=== PATIENT | female | born 1955 | race Caucasian/White ===

== ENCOUNTER 2021-02-06 09:21 | Outpatient (REF) | payer OTHER, SELFPAY ==
[2021-02-06 10:31] LABS: MANUAL DIFF FLAG NO
[2021-02-06 11:03] LABS: Basophils Percent Auto 0.8 % (0-2); Eosinophils Absolute Auto 0.1 X10*3/uL (0.0-0.4); Eosinophils Percent Auto 1.3 % (0-4); Hematocrit 37.6 % (37-47); Hemoglobin 12.4 g/dl (12.0-16.0); Imm Gran Abs Auto 0.01 X10*3/uL (0.00-0.03); Imm Gran Pct Auto 0.2 % (0.0-0.4); Lymphocytes Absolute Auto 1.7 X10*3/uL (1.2-4.9); Lymphocytes Percent Auto 32.8 % (20-40); Mean Corpuscular Hemoglobin 30.2 pg (27.0-33.0); Mean Corpuscular Volume 91.7 fL (80-98); Monocytes Absolute Auto 0.6 X10*3/uL (0.1-1.2); Monocytes Percent Auto 11.3 % (2-11); Neutrophils Absolute Auto 2.8 X10*3/uL (2.0-8.3); Neutrophils Percent Auto 53.6 % (45-73); Platelet Count 200 X10*3/uL (160-400); Red Cell Distribution Width 12.3 % (11.0-16.0); White Blood Count 5.2 X10*3/uL (4.8-10.8)
[2021-02-06 12:24] LABS: Free T4 (Free Thyroxine) 0.93 ng/dL (0.71-1.85); Thyroid Stimulating Hormone 0.97 uIU/mL (0.32-4.0); Vitamin D 25-OH Total 39.5 ng/mL (>30)
[2021-02-06 12:33] LABS: Alanine Aminotransferase 11 U/L (0-31); Albumin Level 4.1 g/dL (3.5-5.0); Alkaline Phosphatase 56 U/L (39-117); Anion Gap 12 (12-20); Aspartate Amino Transferase 20 U/L (5-31); Bilirubin Total 0.7 mg/dL (0.0-1.0); Blood Urea Nitrogen 27 mg/dL (9-16); Calcium 9.3 mg/dL (8.4-10.2); Carbon Dioxide 28 mmol/L (22-29); Chloride 105 mmol/L (96-108); Cholesterol 213 mg/dL; Estimated Glomerular Filt Rate 55; Glucose Random 86 mg/dL (60-115); Sodium 141 mmol/L (135-145); Total Protein 6.8 g/dL (6.5-8.0)
== END 2021-02-06 09:22 | disposition home or self-care (01) ==
LOC: HO.10HDL 09:21
PROVIDERS: Visit Provider Internal Medicine
DX: R00.2 Palpitations (principal); I10 Essential (primary) hypertension; E55.9 Vitamin D deficiency, unspecified; R55 Syncope and collapse
CPT/HCPCS: 36415; 80053; 82306; 82465; 84439; 84443; 85025

== ENCOUNTER → 2021-02-21 11:20 | Outpatient (REF) | payer OTHER, SELFPAY ==
--- NOTE | 2021-02-21 11:30 | CA_ITS ---
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 Normal LV systolic and diastolic function 2. Normal cardiac valvular Doppler 3. Normal RV systolic pressure 4. No pericardial effusion Findings Left Ventricle Normal left ventricular size, thickness, and systolic function. The visually estimated ejection fraction is between 60-65%. Diastolic function is normal for age. Right Ventricle Normal right ventricular cavity size and systolic function. Atria Both atria are normal in size. There is an interatrial septal aneurysm seen bowing to the right. There is no evidence of interatrial shunt. Aortic Valve The aortic valve structure and function is likely normal. There is no aortic valve stenosis. There is no aortic valve regurgitation. Mitral Valve Normal mitral valve structure and function. There is trace mitral valve regurgitation. There is no mitral valve stenosis. Pulmonic Valve The pulmonic valve was not well visualized. Tricuspid Valve Likely normal tricuspid valve structure and function. There is trace tricuspid valve regurgitation. The right ventricular systolic pressure is normal. The right ventricular systolic pressure is 18 mmHg. Normal right atrial pressure. There is no evidence of pulmonary hypertension. Great Vessels All visible segments of the aorta are normal in size. The pulmonary artery was not well visualized. Venous The inferior vena cava is normal in size and collapses greater than 50% with inspiration. Pericardium/Pleural There is no evidence of pericardial effusion. Prior Study Comparison No prior study available for comparison. Measurements 2D Linear Measurements IVSd: 0.82 0.6-0.9/0.6-1.0 cm LVIDd: 4.31 3.9-5.3/4.2-5.9 cm LVIDd Index: 2.39 2.4-3.2/2.2-3.1 cm/m2 LVIDs: 2.96 2.0-3.6 cm LVPWd: 0.96 0.7-1.1 cm Ao Root: 3.30 2.1-3.5 cm LA Diam: 2.70 2.7-3.8/3.0-4.0 cm LAIDs Index: 1.50 1.5-2.3 cm/m2 LV Mass: 151.64 67-162/88-224 g LV Mass Index: 84.24 43-95/49-115 g/m2 LVOT Diam: 2.10 3.0+(-)1.3 cm 2D Systolic Function EF 4C: 57.40 >55% EF 2C: 66.50 >55% EF BiP: 62.30 >55% Mitral Valve MV Pk E: 0.76 MV PK A: 0.77 MV Decel Time: 275.00 E/A: 1.00 E'Lateral: 9.77 E'Medial: 7.25 E/E' Med: 10.40 E/E' Lat: 7.70 PHT: 80.00 MVA PHT: 2.75 Decel Bulloch: 2.76 Aortic Valve AoV Pk Bradford: 1.15 AoV Mn Bradford: 0.80 AoV VTI: 0.27 AoV Pk Grad: 5.00 Aov Mn Grad: 3.00 CHRISTOPHER Cont.VTI: 2.05 LVOT LVOT Pk Bradford: 0.75 LVOT Mn Bradford: 0.47 LVOT VTI: 0.16 LVOT Pk Grad: 2.00 LVOT Mn Grad: 1.00 LVOT Diam: 2.10 LVOT Area: 3.46 Diastolic Function MV Pk E: 0.76 MV Pk A: 0.77 E/A: 1.00 E'Medial: 7.25 E/E' Med: 10.40 E' Laterial: 9.77 E/E' Lat: 7.70 Tricuspid Valve TR Pk Bradford: 1.91 TR Pk Grad: 15.00 RA Press: 3.00 RVSP: 18.00 Great Vessels Aorta Ao Root-2D: 3.30 2.0-3.7 cm Ao Asc: 3.20 2.1-3.4 cm Ao Arch: 2.40 Updated in Other Vendor System with Status of Final Donta Jackson MD electronically signed on 02/21/2021 4:30:01 PM with status of Final
== END ==
LOC: HO.CARD 11:20
PROVIDERS: Visit Provider Internal Medicine
DX: R00.2 Palpitations (principal); R55 Syncope and collapse
CPT/HCPCS: 93306

== ENCOUNTER → 2021-03-13 13:25 | Outpatient (BNVA) | payer OTHER, SELFPAY | PROVIDERS: PCP Internal Medicine; Visit Provider Internal Medicine | DX: I10 Essential (primary) hypertension (principal); I95.1 Orthostatic hypotension; I25.3 Aneurysm of heart; R00.2 Palpitations | CPT/HCPCS: 93005 ==

== ENCOUNTER → 2021-04-05 12:53 | Outpatient (REF) | payer OTHER, SELFPAY ==
--- NOTE | 2021-04-05 13:10 | ECG_ITS ---
Hook-up date: 2021-04-05 13:07:00 Duration: 47:59:00 Test Indications: syncope and collapse, palps Medications: [id number] QRS complexes 456 Ventricular ectopics which represent <1 % of total QRS comp. 93 Supraventricular ectopics which represent <1 % of total QRS comp. * Paced QRS complexs which represent % of total QRS comp. VENTRICULAR ECTOPY 456 Isolated 0 Bigeminal Cycles 0 Couplets 0 Runs 0 Beats in Runs * Beats LONGEST at * BPM at :: -- * Beats FASTEST at * BPM at :: -- SUPRAVENTRICULAR ECTOPY 93 Isolated 0 Couplets 0 Runs 0 Beats in Runs * Beats LONGEST at * BPM at :: -- * Beats FASTEST at * BPM at :: -- HEART RATES 44 MIN at 06:13:26 2021-04-06 64 AVG 100 MAX at 20:30:43 2021-04-06 LONGEST RR 1.3040 secs at 06:13:26 2021-04-06 S-T LEVELS Channel 1 - 128 mm at 13:07:00 2021-04-05 - 128 mm at 13:07:00 2021-04-05 Channel 2 - 128 mm at 13:07:00 2021-04-05 - 128 mm at 13:07:00 2021-04-05 Channel 3 - 128 mm at 03:22:61 -- - 128 mm at 03:22:61 Basic rhythm Normal sinus rhythm Frequent Sinus bradycardia , 41% of time HR < 60 bpm No long pause or profound bradycardia Occasional Premature ventricular complexes Rare Premature atrial complexes Patient reported symptoms correlate with NSR Referred By: David Grider Overread By: JESS MOSQUEDA MD
== END ==
LOC: HO.CARD 12:53
PROVIDERS: Visit Provider Internal Medicine
DX: R55 Syncope and collapse (principal); R00.2 Palpitations
CPT/HCPCS: 93225; 93226

== ENCOUNTER → 2021-04-16 07:19 | Outpatient (REF) | payer OTHER, SELFPAY ==
--- NOTE | 2021-04-16 07:22 | CA_ITS ---
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 Findings Atria There is no evidence of interatrial shunt by agitated saline. Test performed during rest and valsalva. Prior Study Comparison No significant change compared to prior study dated: 02/21/2021. Updated in Other Vendor System with Status of Final Sharad Robles MD electronically signed on 04/16/2021 4:02:52 PM with status of Final
== END ==
LOC: HO.CARD 07:19
PROVIDERS: Visit Provider Internal Medicine
DX: I25.3 Aneurysm of heart (principal); Q21.1 Atrial septal defect
CPT/HCPCS: 93308

== ENCOUNTER 2021-04-26 07:48 | Outpatient (REF) | payer OTHER, SELFPAY ==
--- NOTE | ~2021-04-26 | MM_ITS ---
EXAMINATION: MM SCREENING DIGITAL BREAST TOMOSYNTHESIS, BILATERAL CLINICAL INFORMATION: Screening. Asymptomatic. The lifetime risk of breast cancer based on the Tyrer-Cuzick Model is 9%. COMPARISON: Mammography: 04/20/2020, 04/15/2019, 03/24/2018 TECHNIQUE: Digital breast tomosynthesis is performed in both the craniocaudal and mediolateral oblique views along with computer-aided detection (CAD). Synthesized 2D images are generated from the tomosynthesis. FINDINGS: There are scattered areas of fibroglandular density (ACR BI-RADS breast composition Category b). There are no significant masses, abnormal calcifications, or other abnormalities. No significant changes from prior studies. MM/MM tomosynthesis screening BI IMPRESSION: No mammographic evidence of malignancy. ASSESSMENT: BI-RADS 1: Negative RECOMMENDATION: Routine annual mammography screening. This patient's information was entered into a reminder system with a target due date for their next mammogram.
== END 2021-04-26 07:49 | disposition home or self-care (01) ==
LOC: HO.MAMMO 07:48
PROVIDERS: PCP Internal Medicine; Visit Provider Internal Medicine
DX: Z12.31 Encounter for screening mammogram for malignant neoplasm of breast (principal)
CPT/HCPCS: 77063; 77067

== ENCOUNTER → 2021-05-21 12:56 | Outpatient (BNVA) | payer OTHER, SELFPAY | PROVIDERS: PCP Internal Medicine; Referring Provider Internal Medicine; Visit Provider Internal Medicine ==

== ENCOUNTER 2021-05-24 15:05 | Emergency (ER) | payer OTHER, SELFPAY ==
--- NOTE | 2021-05-24 | ECG_ITS ---
Test Reason : SYNCOPE Blood Pressure : / mmHG Vent. Rate : 075 BPM Atrial Rate : 075 BPM P-R Int : 188 ms QRS Dur : 090 ms QT Int : 402 ms P-R-T Axes : 067 013 035 degrees QTc Int : 448 ms Sinus rhythm with sinus arrhythmia with occasional Premature ventricular complexes Nonspecific ST abnormality Abnormal ECG No previous ECGs available Referred By: Generic ED Physician Electronically Signed By:MATT MAYORGA
--- NOTE | ~2021-05-24 | CT_ITS ---
EXAMINATION: CT HEAD WITHOUT CONTRAST CT CERVICAL SPINE WITHOUT CONTRAST CLINICAL INFORMATION: Fall. COMPARISON: None. TECHNIQUE: Imaging was performed from the skull base to vertex without intravenous administration of contrast. In addition, helical noncontrast CT imaging was acquired through the cervical spine and source images were reviewed along with axial reconstructions and sagittal and coronal MPRs. [This CT examination was performed using dose optimization techniques as appropriate, variously including the following: *Automated exposure control *Adjustment of mA and/or kV according to patient size (this includes techniques or standardized protocols for targeted exams where dose is matched to indication/reason for exam; i.e. extremities or head) *Use of iterative reconstruction technique] DLP: 1034 mGy-cm FINDINGS: HEAD: No intracranial mass, hemorrhage, or midline shift is visualized. The ventricles and sulci are proportional. No extra-axial collections are identified. The paranasal sinuses and mastoid air cells are well aerated. CERVICAL SPINE: There is no evidence of acute cervical spine fracture. Vertebral bodies remain normal in height. Cervical vertebrae have normal alignment. There is multilevel degenerative spondylosis of the cervical spine with disc height narrowing and endplate spurs and facet joint arthrosis No pre- or paravertebral soft tissue abnormality is identified. Limited assessment of the lung apices is unremarkable. CT/CT head/brain wo con IMPRESSION: 1. No acute intracranial pathology. 2. No CT evidence of acute cervical spine fracture or traumatic subluxation
--- NOTE | ~2021-05-24 | CT_ITS ---
EXAMINATION: CT HEAD WITHOUT CONTRAST CT CERVICAL SPINE WITHOUT CONTRAST CLINICAL INFORMATION: Fall. COMPARISON: None. TECHNIQUE: Imaging was performed from the skull base to vertex without intravenous administration of contrast. In addition, helical noncontrast CT imaging was acquired through the cervical spine and source images were reviewed along with axial reconstructions and sagittal and coronal MPRs. [This CT examination was performed using dose optimization techniques as appropriate, variously including the following: *Automated exposure control *Adjustment of mA and/or kV according to patient size (this includes techniques or standardized protocols for targeted exams where dose is matched to indication/reason for exam; i.e. extremities or head) *Use of iterative reconstruction technique] DLP: 1034 mGy-cm FINDINGS: HEAD: No intracranial mass, hemorrhage, or midline shift is visualized. The ventricles and sulci are proportional. No extra-axial collections are identified. The paranasal sinuses and mastoid air cells are well aerated. CERVICAL SPINE: There is no evidence of acute cervical spine fracture. Vertebral bodies remain normal in height. Cervical vertebrae have normal alignment. There is multilevel degenerative spondylosis of the cervical spine with disc height narrowing and endplate spurs and facet joint arthrosis No pre- or paravertebral soft tissue abnormality is identified. Limited assessment of the lung apices is unremarkable. CT/CT cervical spine wo con IMPRESSION: 1. No acute intracranial pathology. 2. No CT evidence of acute cervical spine fracture or traumatic subluxation
--- NOTE | ~2021-05-24 | XR_ITS ---
EXAMINATION: BILATERAL HAND/WRIST CLINICAL INFORMATION: Status post fall COMPARISON: None TECHNIQUE: 3 views each hand. FINDINGS: Left hand: There is loss of PIP and DIP joint space with periarticular spurring. No visible acute fracture, dislocation or subluxation seen. There is mild osteopenia. There is no fracture involving the wrist joint. The soft tissues are normal. Right hand: There is no visible acute fracture or dislocation. There is loss of PIP and DIP joint space with periarticular spurring. There is no fracture involving the wrist joint. XR/XR hand wrist LT IMPRESSION: No acute fracture or dislocation in either hand or wrist. 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
--- NOTE | ~2021-05-24 | XR_ITS ---
EXAMINATION: BILATERAL HAND/WRIST CLINICAL INFORMATION: Status post fall COMPARISON: None TECHNIQUE: 3 views each hand. FINDINGS: Left hand: There is loss of PIP and DIP joint space with periarticular spurring. No visible acute fracture, dislocation or subluxation seen. There is mild osteopenia. There is no fracture involving the wrist joint. The soft tissues are normal. Right hand: There is no visible acute fracture or dislocation. There is loss of PIP and DIP joint space with periarticular spurring. There is no fracture involving the wrist joint. XR/XR hand wrist RT IMPRESSION: No acute fracture or dislocation in either hand or wrist. 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
[2021-05-24 15:08] VITALS: BP 101/59; PULSE 88; RESP 24; O2SAT 100; BMI 25.4
[2021-05-24 15:21] LABS: Glucose, Whole Blood 131 mg/dL (60-115)
[2021-05-24] MEDS: Acetaminophen 325 MG TABLET 650 MG PO (15:22)
[2021-05-24 15:41] LABS: MANUAL DIFF FLAG NO
[2021-05-24 15:42] LABS: Basophils Percent Auto 0.5 % (0-2); Eosinophils Percent Auto 0.5 % (0-4); Hematocrit 40.1 % (37-47); Hemoglobin 13.7 g/dl (12.0-16.0); Imm Gran Abs Auto 0.01 X10*3/uL (0.00-0.03); Imm Gran Pct Auto 0.1 % (0.0-0.4); Lymphocytes Absolute Auto 2.4 X10*3/uL (1.2-4.9); Lymphocytes Percent Auto 31.9 % (20-40); Mean Corpuscular HGB Conc 34.2 g/dl (31.0-35.0); Mean Corpuscular Hemoglobin 30.1 pg (27.0-33.0); Mean Corpuscular Volume 88.1 fL (80-98); Mean Platelet Volume 10.7 fL (9.4-12.3); Monocytes Absolute Auto 0.8 X10*3/uL (0.1-1.2); Monocytes Percent Auto 10.9 % (2-11); Neutrophils Absolute Auto 4.2 X10*3/uL (2.0-8.3); Neutrophils Percent Auto 56.1 % (45-73); Platelet Count 161 X10*3/uL (160-400); Red Blood Count 4.55 X10*6/uL (4.20-5.50); Red Cell Distribution Width 12.3 % (11.0-16.0); White Blood Count 7.5 X10*3/uL (4.8-10.8)
[2021-05-24 16:06] LABS: Troponin-I High Sensitivity < 3.5 ng/L (<3.5-17.0)
[2021-05-24 16:12] LABS: Alanine Aminotransferase 14 U/L (0-31); Albumin Level 4.3 g/dL (3.5-5.0); Alkaline Phosphatase 58 U/L (39-117); Anion Gap 17 (12-20); Aspartate Amino Transferase 24 U/L (5-31); Bilirubin Direct 0.3 mg/dL (0.0-0.5); Bilirubin Total 0.9 mg/dL (0.0-1.0); Blood Urea Nitrogen 35 mg/dL (9-16); Calcium 9.9 mg/dL (8.4-10.2); Carbon Dioxide 23 mmol/L (22-29); Chloride 103 mmol/L (96-108); Estimated Glomerular Filt Rate 42; Glucose Random 146 mg/dL (60-115); Potassium 3.4 mmol/L (3.3-5.1); Sodium 140 mmol/L (135-145); Total Protein 7.3 g/dL (6.5-8.0)
--- NOTE | 2021-05-24 16:14 | ED.FALL ---
HPI - Fall General Chief Complaint: Fall Stated Complaint: syncope/loc/fall Time Seen by Provider: 05/24/21 16:13 Source: patient Mode of arrival: ambulatory Limitations: no limitations History of Present Illness HPI Narrative: Patient has history of hypertension, palpitations with near syncope episode last month on multiple medication for hypertension had Holter monitoring done on 04/05/21 showed no significant arrhythmias has significant orthostatic hypertension advised to stop amlodipine if symptoms continues but patient has not stop it yet today while at home patient suddenly stood up felt lightheaded and fell down while standing patient does not remember the whole event. Patient denies any palpitation episode no chest pain no seizure activity no post event confusion patient seems to be very anxious when arrived complaining of pain both hands without any swelling or signs of injury Related Data Home Medications Medication Instructions Recorded Confirmed amlodipine 5 mg tablet 5 mg PO DAILY 03/13/21 05/21/21 aspirin 81 mg tablet,delayed 81 mg PO DAILY 03/13/21 05/21/21 release atenolol 25 mg tablet 25 mg PO DAILY 03/13/21 05/21/21 cholecalciferol (vitamin D3) 25 25 mcg PO DAILY 03/13/21 05/21/21 mcg (1,000 unit) capsule lisinopril 40 mg tablet 40 mg PO DAILY 03/13/21 05/21/21 triamterene 37.5 1 cap PO DAILY 03/13/21 05/21/21 mg-hydrochlorothiazide 25 mg capsule Allergies Allergy/AdvReac Type Severity Reaction Status Date / Time No Known Allergies Allergy Verified 05/24/21 16:14 Review of Systems Review of Systems: Yes all other systems are reviewed and are negative [facility] Past Medical History Source: old records reviewed Medical History (Updated 05/24/21 @ 18:19 by Corey Liao MD) Atrial septal aneurysm Essential hypertension Heart palpitations Orthostatic hypotension Surgical History No pertinent past surgical history Family History Family History Father HTN (hypertension) Aortic dissection Mother HTN (hypertension) Social History Social History Patient Tobacco Use Status: Never used Tobacco Advance Directives: No Advance Directives Information Provided: Yes Patient : No Physical Exam Vital Signs: Vital Signs: Last Vital Signs Pulse 84 05/24/21 17:24 Resp 24 H 05/24/21 15:08 BP 123/73 05/24/21 17:24 Pulse Ox 100 05/24/21 15:08 Body Mass Index 25.4 Const: General: comfortable, alert, awake, acute distress mild and anxious Nutritional Appearance: average body habitus and well nourished Orientation/consciousness: patient oriented x3 HENMT: Head: Yes normocephalic and Yes atraumatic Ears: hearing grossly normal bilaterally General nose exam: Normal external nose present Mouth: Normal oral and palatal mucosa present Neck: Neck: Yes trachea midline, No lymphadenopathy and No tender Carotids: normal carotid upstroke Chest: Chest palpation & inspection: normal inspection of the chest and normal palpation of entire chest wall Resp: Effort & Inspection: normal respiratory effort Auscultation: clear to auscultation bilaterally, no crackles and no rales Cardio: Palpation: normal PMI Rate: regular rate Rhythm: regular rhythm Heart sounds: S1 normal heart sound present, S2 normal heart sound present, no murmurs and no rubs Peripheral pulses: Peripheral pulses 2+ throughout GI: Inspection: Yes normal to inspection Palpation (GI): Soft to palpation and nontender Auscultation: normal bowel sounds : General: Yes no CVA tenderness Back/Spine/Pelvis: Back: no CVA tenderness Thoracic/Lumbar Spine: thoracic and lumbar spine normal to inspection, No paraspinal muscle tenderness, No thoracic spinal tenderness and No lumbar spinal tenderness Skin: General skin exam: no rashes or lesions noted Neuro: General: patient oriented x3, moves all extremities, Normal light touch and pain sensation, no focal motor deficits and CN's II-XI intact bilaterally Extrem: General: Yes normal to inspection and Yes full ROM Hand/finger images: 1. Diffuse tenderness without any obvious swelling or ecchymosis no deformity good range of movement of wrist joint 2. Diffuse tenderness without any obvious swelling or ecchymosis no deformity good range of movement of wrist joint MDM - Fall MDM Narrative Medical decision making narrative: Patient with near syncope/syncope episode happened 2nd time likely orthostatic already seen by cylinder filler had a Holter monitor which showed only sinus arrhythmia. Case discussed Dr. Robles cylinder filler plan to see her on Thursday plan to put event monitor for now patient has to be careful when she stands up likely she has POTS. Lab Data Attestation: I reviewed the patient's lab results. Result diagrams: 05/24/21 15:37 05/24/21 15:37 Labs: Lab Results 05/24/21 05/24/21 05/24/21 Range/Units 15:16 15:37 15:37 WBC 7.5 (4.8-10.8) X10*3/uL RBC 4.55 (4.20-5.50) X10*6/uL Hgb 13.7 (12.0-16.0) g/dl Hct 40.1 (37-47) % MCV 88.1 (80-98) fL MCH 30.1 (27.0-33.0) pg MCHC 34.2 (31.0-35.0) g/dl RDW 12.3 (11.0-16.0) % Plt Count 161 (160-400) X10*3/uL MPV 10.7 (9.4-12.3) fL Immature Gran % (Auto) 0.1 (0.0-0.4) % Neut % (Auto) 56.1 (45-73) % Lymph % (Auto) 31.9 (20-40) % [place] % (Auto) 10.9 (2-11) % Eos % (Auto) 0.5 (0-4) % Baso % (Auto) 0.5 (0-2) % Lymph # (Auto) 2.4 (1.2-4.9) X10*3/uL [place] # (Auto) 0.8 (0.1-1.2) X10*3/uL Eos # (Auto) 0.0 (0.0-0.4) X10*3/uL Baso # (Auto) 0.0 (0.0-0.2) X10*3/uL Abs Immat Gran (auto) 0.01 (0.00-0.03) X10*3/uL Absolute Neuts (auto) 4.2 (2.0-8.3) X10*3/uL Absolute Nucleated RBC 0.000 (0.0-0.012) X10*3/uL Nucleated RBC % (auto) 0.0 (0.0-0.2) /100WBC Sodium 140 (135-145) mmol/L Potassium 3.4 (3.3-5.1) mmol/L Chloride 103 (96-108) mmol/L Carbon Dioxide 23 (22-29) mmol/L Anion Gap 17 (12-20) BUN 35 H (9-16) mg/dL Creatinine 1.27 (0.5-1.4) mg/dL Estim Creat Clear Calc 46.0 Estimated GFR 42 POC Glucose 131 H (60-115) mg/dL Random Glucose 146 H D (60-115) mg/dL Calcium 9.9 D (8.4-10.2) mg/dL Total Bilirubin 0.9 (0.0-1.0) mg/dL Direct Bilirubin 0.3 (0.0-0.5) mg/dL AST 24 (5-31) U/L ALT 14 (0-31) U/L Alkaline Phosphatase 58 (39-117) U/L Troponin I High Sens (<3.5-17.0) ng/L Total Protein 7.3 (6.5-8.0) g/dL Albumin 4.3 (3.5-5.0) g/dL 05/24/ Range/Units 15:37 WBC (4.8-10.8) X10*3/uL RBC (4.20-5.50) X10*6/uL Hgb (12.0-16.0) g/dl Hct (37-47) % MCV (80-98) fL MCH (27.0-33.0) pg MCHC (31.0-35.0) g/dl RDW (11.0-16.0) % Plt Count (160-400) X10*3/uL MPV (9.4-12.3) fL Immature Gran % (Auto) (0.0-0.4) % Neut % (Auto) (45-73) % Lymph % (Auto) (20-40) % [place] % (Auto) (2-11) % Eos % (Auto) (0-4) % Baso % (Auto) (0-2) % Lymph # (Auto) (1.2-4.9) X10*3/uL [place] # (Auto) (0.1-1.2) X10*3/uL Eos # (Auto) (0.0-0.4) X10*3/uL Baso # (Auto) (0.0-0.2) X10*3/uL Abs Immat Gran (auto) (0.00-0.03) X10*3/uL Absolute Neuts (auto) (2.0-8.3) X10*3/uL Absolute Nucleated RBC (0.0-0.012) X10*3/uL Nucleated RBC % (auto) (0.0-0.2) /100WBC Sodium (135-145) mmol/L Potassium (3.3-5.1) mmol/L Chloride (96-108) mmol/L Carbon Dioxide (22-29) mmol/L Anion Gap (12-20) BUN (9-16) mg/dL Creatinine (0.5-1.4) mg/dL Estim Creat Clear Calc Estimated GFR POC Glucose (60-115) mg/dL Random Glucose (60-115) mg/dL Calcium (8.4-10.2) mg/dL Total Bilirubin (0.0-1.0) mg/dL Direct Bilirubin (0.0-0.5) mg/dL AST (5-31) U/L ALT (0-31) U/L Alkaline Phosphatase (39-117) U/L Troponin I High Sens < 3.5 (<3.5-17.0) ng/L Total Protein (6.5-8.0) g/dL Albumin (3.5-5.0) g/dL ECG Data Attestation: I personally reviewed and interpreted this ECG as follows: Interpretation: Normal sinus rhythm heart rate 75 beats per minute occasional PVCs no acute ST T wave changes no acute ischemia Discharge Plan Discharge Clinical Impression: Syncope Qualifiers: Syncope type: vasovagal syncope Qualified Code(s): R55 - Syncope and collapse Patient Disposition: Home, Self-Care Instructions: Syncope (ED) Additional Instructions: Continue medications and follow with cylinder filler on 05/27 Cautious as advised when you stand up take your time sit for some time and then stand up Prescriptions: No Action amlodipine 5 mg tablet 5 mg PO DAILY RF: 0 atenolol 25 mg tablet 25 mg PO DAILY RF: 0 lisinopril 40 mg tablet 40 mg PO DAILY RF: 0 triamterene-hydrochlorothiazid 37.5-25 mg capsule 1 cap PO DAILY RF: 0 aspirin 81 mg tablet,delayed release (DR/EC) 81 mg PO DAILY RF: 0 cholecalciferol (vitamin D3) 25 mcg (1,000 unit) capsule 25 mcg PO DAILY RF: 0
[2021-05-24 17:09] VITALS: BP 117/66; PULSE 75
[2021-05-24 17:18] VITALS: BP 125/71; PULSE 80
[2021-05-24 17:19] VITALS: BP 123/73; PULSE 84
[2021-05-24] MEDS: Ketorolac Tromethamine 15 MG/ML VIAL IVPUSH (17:20)
[2021-05-24 17:24] VITALS: BP 123/73; PULSE 84
--- NOTE | 2021-05-24 17:57 | PC.NURSE ---
patient ambulated with standby assist from this RN, to the bathroom with no difficulty
== END 2021-05-24 18:27 | disposition home or self-care (01) ==
PROVIDERS: Emergency Provider Internal Medicine; PCP Internal Medicine
DX: R55 Syncope and collapse (principal); M79.642 Pain in left hand; M79.641 Pain in right hand; I10 Essential (primary) hypertension
CPT/HCPCS: 36415; 70450; 72125; 73110; 73130; 80053; 80076; 82248; 82947; 84484; 85025; 93005; 96374; 99284; 99285; J1885

== ENCOUNTER → 2021-05-30 10:57 | Outpatient (BNVA) | payer OTHER, SELFPAY | PROVIDERS: PCP Internal Medicine; Referring Provider Internal Medicine; Visit Provider Internal Medicine ==

== ENCOUNTER 2021-06-03 11:09 | Observation (INO) | payer OTHER, SELFPAY ==
[2021-06-03] VITALS (7 sets, daily range): BP systolic 89–126; BP diastolic 58–72; PULSE 73–102; RESP 15–18; TEMP 36.3–36.7; O2SAT 96–100; BMI 24.2; BMI 24.3
--- NOTE | ~2021-06-03 | XR_ITS ---
EXAMINATION: XR CHEST CLINICAL INFORMATION: Hypotension/dizziness COMPARISON: December 21, 2015 TECHNIQUE: Frontal view of the chest was obtained. FINDINGS: No significant abnormality is noted involving the heart, lungs, mediastinum, bony thorax or soft tissues. XR/XR chest 1V IMPRESSION: No acute disease.
--- NOTE | 2021-06-03 11:32 | ECG_ITS ---
Test Reason : DIZZINESS Blood Pressure : / mmHG Vent. Rate : 085 BPM Atrial Rate : 085 BPM P-R Int : 144 ms QRS Dur : 088 ms QT Int : 364 ms P-R-T Axes : 078 052 -10 degrees QTc Int : 433 ms Sinus rhythm with occasional Premature ventricular complexes Possible Left atrial enlargement ST & T wave abnormality, consider inferior ischemia Abnormal ECG When compared to the previous EKG of ST depression are prominent in lateral and inferior leads Referred By: Generic ED Physician Electronically Signed By:JESS MOSQUEDA MD
--- NOTE | 2021-06-03 11:39 | ED.GENADULT ---
HPI - General Adult General Chief complaint: General Medical Stated complaint: hypotension abn cardiogram Time Seen by Provider: 06/03/21 11:38 Related Data Home Medications Medication Instructions Recorded Confirmed aspirin 81 mg tablet,delayed 81 mg PO DAILY 03/13/21 06/03/21 release atenolol 25 mg tablet 25 mg PO BEDTIME 03/13/21 06/03/21 cholecalciferol (vitamin D3) 25 25 mcg PO DAILY 03/13/21 06/03/21 mcg (1,000 unit) capsule lisinopril 40 mg tablet 40 mg PO DAILY@12 03/13/21 06/03/21 triamterene 37.5 1 cap PO DAILY 03/13/21 06/03/21 mg-hydrochlorothiazide 25 mg capsule Allergies Allergy/AdvReac Type Severity Reaction Status Date / Time No Known Allergies Allergy Verified 06/03/21 11:25 [facility] Past Medical History Medical History (Updated 06/04/21 @ 18:22 by Magui Tenorio MD) Atrial septal aneurysm Essential hypertension Heart palpitations History of echocardiogram History of Holter monitoring Orthostatic hypotension Surgical History No pertinent past surgical history Family History Family History Father HTN (hypertension) Aortic dissection Mother HTN (hypertension) Social History Social History Alcohol intake: current Alcohol intake frequency: a few times a month Patient Tobacco Use Status: Never used Tobacco Use of substances other than those prescribed or required for medical reasons: No Advance Directives: No Advance Directives Information Provided: No Patient : No service: No Current occupational status: employed Physical Exam Vital Signs: Vital Signs: Last Vital Signs Temp 98.7 F 06/04/21 19:28 Pulse 90 06/04/21 20:34 Resp 16 06/04/21 19:28 BP 124/64 06/04/21 20:34 Pulse Ox 98 06/04/21 19:28 Body Mass Index 24.2 Course Course Course Narrative: patient presents to the ED for generalized weakness and low blood pressure sent from PCP. Patient states feeling lethargic. Labs, chest xray ordered and EKG ordered. Blood pressure at triage is hypotensive. Nurse informed to bring patient to the ED. patient states she is vaccinated and recent negative covid swab was yesterday. This is Rapid Medical Screening. Medical Decision Making Lab Data Result diagrams: 06/03/21 12:40 06/03/21 12:40 Labs: Lab Results 06/03/21 06/03/21 06/03/21 Range/Units 12:39 12:40 12:40 WBC 10.3 (4.8-10.8) X10*3/uL RBC 3.71 L (4.20-5.50) X10*6/uL Hgb 11.2 L (12.0-16.0) g/dl Hct 33.6 L (37-47) % MCV 90.6 (80-98) fL MCH 30.2 (27.0-33.0) pg MCHC 33.3 (31.0-35.0) g/dl RDW 12.5 (11.0-16.0) % Plt Count 343 D (160-400) X10*3/uL MPV 10.3 (9.4-12.3) fL Immature Gran % (Auto) 0.3 (0.0-0.4) % Neut % (Auto) 73.1 H (45-73) % Lymph % (Auto) 17.5 L (20-40) % [place] % (Auto) 8.4 (2-11) % Eos % (Auto) 0.2 (0-4) % Baso % (Auto) 0.5 (0-2) % Lymph # (Auto) 1.8 (1.2-4.9) X10*3/uL [place] # (Auto) 0.9 (0.1-1.2) X10*3/uL Eos # (Auto) 0.0 (0.0-0.4) X10*3/uL Baso # (Auto) 0.1 (0.0-0.2) X10*3/uL Abs Immat Gran (auto) 0.03 (0.00-0.03) X10*3/uL Absolute Neuts (auto) 7.5 (2.0-8.3) X10*3/uL Absolute Nucleated RBC 0.000 (0.0-0.012) X10*3/uL Nucleated RBC % (auto) 0.0 (0.0-0.2) /100WBC PT (9.9-13.0) SEC INR (0.9-1.1) APTT (24.1-38.0) SEC Sodium 142 (135-145) mmol/L Potassium 3.8 (3.3-5.1) mmol/L Chloride 103 (96-108) mmol/L Carbon Dioxide 26 (22-29) mmol/L Anion Gap 17 (12-20) BUN 39 H (9-16) mg/dL Creatinine 1.13 (0.5-1.4) mg/dL Estim Creat Clear Calc 47.0 Estimated GFR 48 Random Glucose 110 (60-115) mg/dL Calcium 10.0 (8.4-10.2) mg/dL Magnesium (1.6-2.6) mg/dL Total Bilirubin (0.0-1.0) mg/dL Direct Bilirubin (0.0-0.5) mg/dL AST (5-31) U/L ALT (0-31) U/L Alkaline Phosphatase (39-117) U/L Total Creatine Kinase (26-140) U/L Troponin I High Sens (<3.5-17.0) ng/L B-Natriuretic Peptide (<100) pg/mL Total Protein (6.5-8.0) g/dL Albumin (3.5-5.0) g/dL Vitamin B12 (200-900) pg/mL Folate (> or = 4.0) ng/mL TSH (0.32-4.0) uIU/mL Coronavirus (PCR) NEGATIVE (Negative) Influenza Type A (PCR) NEGATIVE (Negative) Influenza Type B (PCR) NEGATIVE (Negative) RSV RNA Qual (PCR) NEGATIVE (Negative) 06/03/21 06/03/21 06/03/21 Range/Units 12:40 12:40 12:40 WBC (4.8-10.8) X10*3/uL RBC (4.20-5.50) X10*6/uL Hgb (12.0-16.0) g/dl Hct (37-47) % MCV (80-98) fL MCH (27.0-33.0) pg MCHC (31.0-35.0) g/dl RDW (11.0-16.0) % Plt Count (160-400) X10*3/uL MPV (9.4-12.3) fL Immature Gran % (Auto) (0.0-0.4) % Neut % (Auto) (45-73) % Lymph % (Auto) (20-40) % [place] % (Auto) (2-11) % Eos % (Auto) (0-4) % Baso % (Auto) (0-2) % Lymph # (Auto) (1.2-4.9) X10*3/uL [place] # (Auto) (0.1-1.2) X10*3/uL Eos # (Auto) (0.0-0.4) X10*3/uL Baso # (Auto) (0.0-0.2) X10*3/uL Abs Immat Gran (auto) (0.00-0.03) X10*3/uL Absolute Neuts (auto) (2.0-8.3) X10*3/uL Absolute Nucleated RBC (0.0-0.012) X10*3/uL Nucleated RBC % (auto) (0.0-0.2) /100WBC PT (9.9-13.0) SEC INR (0.9-1.1) APTT (24.1-38.0) SEC Sodium (135-145) mmol/L Potassium (3.3-5.1) mmol/L Chloride (96-108) mmol/L Carbon Dioxide (22-29) mmol/L Anion Gap (12-20) BUN (9-16) mg/dL Creatinine (0.5-1.4) mg/dL Estim Creat Clear Calc Estimated GFR Random Glucose (60-115) mg/dL Calcium (8.4-10.2) mg/dL Magnesium 2.1 (1.6-2.6) mg/dL Total Bilirubin 0.3 (0.0-1.0) mg/dL Direct Bilirubin 0.2 (0.0-0.5) mg/dL AST 21 (5-31) U/L ALT 24 (0-31) U/L Alkaline Phosphatase 51 (39-117) U/L Total Creatine Kinase 50 (26-140) U/L Troponin I High Sens < 3.5 (<3.5-17.0) ng/L B-Natriuretic Peptide 86 (<100) pg/mL Total Protein 6.9 (6.5-8.0) g/dL Albumin 4.3 (3.5-5.0) g/dL Vitamin B12 (200-900) pg/mL Folate (> or = 4.0) ng/mL TSH 0.76 (0.32-4.0) uIU/mL Coronavirus (PCR) (Negative) Influenza Type A (PCR) (Negative) Influenza Type B (PCR) (Negative) RSV RNA Qual (PCR) (Negative) 06/03/21 06/03/21 Range/Units 12:40 12:40 WBC (4.8-10.8) X10*3/uL RBC (4.20-5.50) X10*6/uL Hgb (12.0-16.0) g/dl Hct (37-47) % MCV (80-98) fL MCH (27.0-33.0) pg MCHC (31.0-35.0) g/dl RDW (11.0-16.0) % Plt Count (160-400) X10*3/uL MPV (9.4-12.3) fL Immature Gran % (Auto) (0.0-0.4) % Neut % (Auto) (45-73) % Lymph % (Auto) (20-40) % [place] % (Auto) (2-11) % Eos % (Auto) (0-4) % Baso % (Auto) (0-2) % Lymph # (Auto) (1.2-4.9) X10*3/uL [place] # (Auto) (0.1-1.2) X10*3/uL Eos # (Auto) (0.0-0.4) X10*3/uL Baso # (Auto) (0.0-0.2) X10*3/uL Abs Immat Gran (auto) (0.00-0.03) X10*3/uL Absolute Neuts (auto) (2.0-8.3) X10*3/uL Absolute Nucleated RBC (0.0-0.012) X10*3/uL Nucleated RBC % (auto) (0.0-0.2) /100WBC PT 11.8 (9.9-13.0) SEC INR 1.0 (0.9-1.1) APTT 39.4 H (24.1-38.0) SEC Sodium (135-145) mmol/L Potassium (3.3-5.1) mmol/L Chloride (96-108) mmol/L Carbon Dioxide (22-29) mmol/L Anion Gap (12-20) BUN (9-16) mg/dL Creatinine (0.5-1.4) mg/dL Estim Creat Clear Calc Estimated GFR Random Glucose (60-115) mg/dL Calcium (8.4-10.2) mg/dL Magnesium (1.6-2.6) mg/dL Total Bilirubin (0.0-1.0) mg/dL Direct Bilirubin (0.0-0.5) mg/dL AST (5-31) U/L ALT (0-31) U/L Alkaline Phosphatase (39-117) U/L Total Creatine Kinase (26-140) U/L Troponin I High Sens (<3.5-17.0) ng/L B-Natriuretic Peptide (<100) pg/mL Total Protein (6.5-8.0) g/dL Albumin (3.5-5.0) g/dL Vitamin B12 463 (200-900) pg/mL Folate 16.2 (> or = 4.0) ng/mL TSH (0.32-4.0) uIU/mL Coronavirus (PCR) (Negative) Influenza Type A (PCR) (Negative) Influenza Type B (PCR) (Negative) RSV RNA Qual (PCR) (Negative) Discharge Plan Discharge Clinical Impression: Acute electrocardiogram changes Patient Disposition: Admitted As Inpatient Interventions: Admission Worksheet (ED) Last Done: 06/03/21 20:35 Discharge Date/Time: 06/03/21 18:00
--- NOTE | 2021-06-03 12:33 | ED_ITS ---
HPI - General Adult General Chief complaint: General Medical Stated complaint: hypotension abn cardiogram Time Seen by Provider: 06/03/21 11:38 History of Present Illness HPI narrative: Patient is 66 years old with a history of hypertension. Was seen in the past for syncope. Patient was evaluated about 2 weeks ago. Happen while patient was trying to get up. She is on 4 different types of hypertensive medication. Subsequently was seen by Cardiology. Was taken off the [facility]. Patient denies any fever chills no cough no congestion or upper respiratory symptoms. She received her coronavirus vaccine. Patient denies going outside. Denies noticing any blood in his stool. Positive generalized malaise weakness. Patient is from home. She had had a previous echo which was normal. Patient also had previous Holter monitor which were negative. Patient had EKG done today shows T-wave inversions over the inferior lead with ST segment depression that is new compared to an EKG 2 weeks ago. This was noted by patient's primary physician. She was sent for further evaluation patient did not notice any chest pain. She did noted to be more short of breath than usual. She also complained of pain in her hands. The pain in her hands is worse with movement worse at night. Improved in the morning Related Data Home Medications Medication Instructions Recorded Confirmed aspirin 81 mg tablet,delayed 81 mg PO DAILY 03/13/21 06/03/21 release atenolol 25 mg tablet 25 mg PO BEDTIME 03/13/21 06/03/21 cholecalciferol (vitamin D3) 25 25 mcg PO DAILY 03/13/21 06/03/21 mcg (1,000 unit) capsule lisinopril 40 mg tablet 40 mg PO DAILY@12 03/13/21 06/03/21 triamterene 37.5 1 cap PO DAILY 03/13/21 06/03/21 mg-hydrochlorothiazide 25 mg capsule Allergies Allergy/AdvReac Type Severity Reaction Status Date / Time No Known Allergies Allergy Verified 06/03/21 11:25 Review of Systems Review of Systems: Constitutional: No Weight loss, No Fever, No Chills, No Night Sweats, No Fatigue, No Malaise ENT/Mouth: No Hearing loss, No Ear Pain, No Nasal Congestion, No Sinus Pain, No Hoarseness, No sore throat, No Rhinorrhea, No Swallowing Difficulty Eyes: No Eye Pain, No Swelling, No Redness, No Foreign Body, No Discharge, No Vision Changes Cardiovascular: No Chest Pain, positive SOB, No Dyspnea on Exertion, No Orthopnea, No Edema, No Palpitations Respiratory: No Cough, No Sputum, No Wheezing, No Smoke Exposure, No Dyspnea Gastrointestinal: No Nausea, No Vomiting, No Diarrhea, No Constipation, No abdominal Pain, No Hematochezia, No Melena Genitourinary: no irregular bleeding, No Dysuria, No Urinary Frequency, No Hematuria, No Urinary Incontinence, No Urgency, No Flank Pain, No Urinary Flow Changes, No Hesitancy Musculoskeletal: No joint pain, No Myalgias, No Joint Swelling Skin: No Skin Lesions, No rash Neuro: No Weakness, No Numbness, No Paresthesias, No Loss of Consciousness, No Dizziness, No Headache Psych: No Anxiety/Panic, No Depression, No SI/HI/AH/VH, No Social Issues, Heme/Lymph: No Bruising, No Bleeding,No Lymphadenopathy Endocrine: No Polyuria, No Polydipsia, No Temperature Intolerance [facility] Past Medical History Attestation statement: The following information was validated with the patient. Medical History Atrial septal aneurysm Essential hypertension Heart palpitations History of echocardiogram History of Holter monitoring Orthostatic hypotension Surgical History No pertinent past surgical history Family History Family History Father HTN (hypertension) Aortic dissection Mother HTN (hypertension) Social History Social History Alcohol intake: current Alcohol intake frequency: a few times a month Patient Tobacco Use Status: Never used Tobacco Use of substances other than those prescribed or required for medical reasons: No Advance Directives: No Advance Directives Information Provided: No Patient : No Physical Exam Vital Signs: Vital Signs: Last Vital Signs Temp 98 F 06/03/21 18:43 Pulse 96 06/03/21 18:43 Resp 16 06/03/21 18:43 BP 93/62 06/03/21 18:43 Pulse Ox 96 06/03/21 18:43 Body Mass Index 24.2 Appearance: Alert. Oriented X3. No acute distress. Eyes: Pupils equal, round and reactive to light. ENT: Pharynx normal. Neck: Normal inspection. Neck supple. No lymph nodes noted. No crepitus CVS: Normal heart rate and rhythm. Pulses normal. Normal S1 and S2 Respiratory: No respiratory distress. Breath sounds normal. No Wheezing. No rales Abdomen: Soft and nontender. No rigidity. No distention. good BS x4 Skin: Skin warm and dry. Normal skin color. Normal skin turgor. Extremities: No lower extremity edema. Neurovascular intact to all extremities. No Lacerations. No Rash Neuro: Oriented X 3. No motor deficit. No sensory deficit. Moving all extermities. No slurred speech Medical Decision Making MDM Narrative Medical decision making narrative: EKG showed a sinus pattern heart rate is 85 MN QRS QT within normal limits there is significant T-wave inversion over the inferior leads with ST segment depression noted. This is new compared to an EKG 2 weeks ago. Patient's troponin was negative. Given IV fluids here in the emergency department. With EKG changes case discussed with the maintenance mechanic telephone. Will admit for observation overnight. Will hydrate. We will monitor carefully. Patient also had an episode of hypotension with the primary physician. In stable condition. Lab Data Result diagrams: 06/03/21 12:40 06/03/21 12:40 Labs: Lab Results 06/03/21 06/03/21 06/03/21 Range/Units 12:39 12:40 12:40 WBC 10.3 (4.8-10.8) X10*3/uL RBC 3.71 L (4.20-5.50) X10*6/uL Hgb 11.2 L (12.0-16.0) g/dl Hct 33.6 L (37-47) % MCV 90.6 (80-98) fL MCH 30.2 (27.0-33.0) pg MCHC 33.3 (31.0-35.0) g/dl RDW 12.5 (11.0-16.0) % Plt Count 343 D (160-400) X10*3/uL MPV 10.3 (9.4-12.3) fL Immature Gran % (Auto) 0.3 (0.0-0.4) % Neut % (Auto) 73.1 H (45-73) % Lymph % (Auto) 17.5 L (20-40) % [place] % (Auto) 8.4 (2-11) % Eos % (Auto) 0.2 (0-4) % Baso % (Auto) 0.5 (0-2) % Lymph # (Auto) 1.8 (1.2-4.9) X10*3/uL [place] # (Auto) 0.9 (0.1-1.2) X10*3/uL Eos # (Auto) 0.0 (0.0-0.4) X10*3/uL Baso # (Auto) 0.1 (0.0-0.2) X10*3/uL Abs Immat Gran (auto) 0.03 (0.00-0.03) X10*3/uL Absolute Neuts (auto) 7.5 (2.0-8.3) X10*3/uL Absolute Nucleated RBC 0.000 (0.0-0.012) X10*3/uL Nucleated RBC % (auto) 0.0 (0.0-0.2) /100WBC PT (9.9-13.0) SEC INR (0.9-1.1) APTT (24.1-38.0) SEC Sodium 142 (135-145) mmol/L Potassium 3.8 (3.3-5.1) mmol/L Chloride 103 (96-108) mmol/L Carbon Dioxide 26 (22-29) mmol/L Anion Gap 17 (12-20) BUN 39 H (9-16) mg/dL Creatinine 1.13 (0.5-1.4) mg/dL Estim Creat Clear Calc 47.0 Estimated GFR 48 Random Glucose 110 (60-115) mg/dL Calcium 10.0 (8.4-10.2) mg/dL Magnesium (1.6-2.6) mg/dL Total Bilirubin (0.0-1.0) mg/dL Direct Bilirubin (0.0-0.5) mg/dL AST (5-31) U/L ALT (0-31) U/L Alkaline Phosphatase (39-117) U/L Total Creatine Kinase (26-140) U/L Troponin I High Sens (<3.5-17.0) ng/L B-Natriuretic Peptide (<100) pg/mL Total Protein (6.5-8.0) g/dL Albumin (3.5-5.0) g/dL Vitamin B12 (200-900) pg/mL Folate (> or = 4.0) ng/mL TSH (0.32-4.0) uIU/mL Coronavirus (PCR) NEGATIVE (Negative) Influenza Type A (PCR) NEGATIVE (Negative) Influenza Type B (PCR) NEGATIVE (Negative) RSV RNA Qual (PCR) NEGATIVE (Negative) 06/03/21 06/03/21 06/03/21 Range/Units 12:40 12:40 12:40 WBC (4.8-10.8) X10*3/uL RBC (4.20-5.50) X10*6/uL Hgb (12.0-16.0) g/dl Hct (37-47) % MCV (80-98) fL MCH (27.0-33.0) pg MCHC (31.0-35.0) g/dl RDW (11.0-16.0) % Plt Count (160-400) X10*3/uL MPV (9.4-12.3) fL Immature Gran % (Auto) (0.0-0.4) % Neut % (Auto) (45-73) % Lymph % (Auto) (20-40) % [place] % (Auto) (2-11) % Eos % (Auto) (0-4) % Baso % (Auto) (0-2) % Lymph # (Auto) (1.2-4.9) X10*3/uL [place] # (Auto) (0.1-1.2) X10*3/uL Eos # (Auto) (0.0-0.4) X10*3/uL Baso # (Auto) (0.0-0.2) X10*3/uL Abs Immat Gran (auto) (0.00-0.03) X10*3/uL Absolute Neuts (auto) (2.0-8.3) X10*3/uL Absolute Nucleated RBC (0.0-0.012) X10*3/uL Nucleated RBC % (auto) (0.0-0.2) /100WBC PT (9.9-13.0) SEC INR (0.9-1.1) APTT (24.1-38.0) SEC Sodium (135-145) mmol/L Potassium (3.3-5.1) mmol/L Chloride (96-108) mmol/L Carbon Dioxide (22-29) mmol/L Anion Gap (12-20) BUN (9-16) mg/dL Creatinine (0.5-1.4) mg/dL Estim Creat Clear Calc Estimated GFR Random Glucose (60-115) mg/dL Calcium (8.4-10.2) mg/dL Magnesium 2.1 (1.6-2.6) mg/dL Total Bilirubin 0.3 (0.0-1.0) mg/dL Direct Bilirubin 0.2 (0.0-0.5) mg/dL AST 21 (5-31) U/L ALT 24 (0-31) U/L Alkaline Phosphatase 51 (39-117) U/L Total Creatine Kinase 50 (26-140) U/L Troponin I High Sens < 3.5 (<3.5-17.0) ng/L B-Natriuretic Peptide 86 (<100) pg/mL Total Protein 6.9 (6.5-8.0) g/dL Albumin 4.3 (3.5-5.0) g/dL Vitamin B12 (200-900) pg/mL Folate (> or = 4.0) ng/mL TSH 0.76 (0.32-4.0) uIU/mL Coronavirus (PCR) (Negative) Influenza Type A (PCR) (Negative) Influenza Type B (PCR) (Negative) RSV RNA Qual (PCR) (Negative) 06/03/21 06/03/21 Range/Units 12:40 12:40 WBC (4.8-10.8) X10*3/uL RBC (4.20-5.50) X10*6/uL Hgb (12.0-16.0) g/dl Hct (37-47) % MCV (80-98) fL MCH (27.0-33.0) pg MCHC (31.0-35.0) g/dl RDW (11.0-16.0) % Plt Count (160-400) X10*3/uL MPV (9.4-12.3) fL Immature Gran % (Auto) (0.0-0.4) % Neut % (Auto) (45-73) % Lymph % (Auto) (20-40) % [place] % (Auto) (2-11) % Eos % (Auto) (0-4) % Baso % (Auto) (0-2) % Lymph # (Auto) (1.2-4.9) X10*3/uL [place] # (Auto) (0.1-1.2) X10*3/uL Eos # (Auto) (0.0-0.4) X10*3/uL Baso # (Auto) (0.0-0.2) X10*3/uL Abs Immat Gran (auto) (0.00-0.03) X10*3/uL Absolute Neuts (auto) (2.0-8.3) X10*3/uL Absolute Nucleated RBC (0.0-0.012) X10*3/uL Nucleated RBC % (auto) (0.0-0.2) /100WBC PT 11.8 (9.9-13.0) SEC INR 1.0 (0.9-1.1) APTT 39.4 H (24.1-38.0) SEC Sodium (135-145) mmol/L Potassium (3.3-5.1) mmol/L Chloride (96-108) mmol/L Carbon Dioxide (22-29) mmol/L Anion Gap (12-20) BUN (9-16) mg/dL Creatinine (0.5-1.4) mg/dL Estim Creat Clear Calc Estimated GFR Random Glucose (60-115) mg/dL Calcium (8.4-10.2) mg/dL Magnesium (1.6-2.6) mg/dL Total Bilirubin (0.0-1.0) mg/dL Direct Bilirubin (0.0-0.5) mg/dL AST (5-31) U/L ALT (0-31) U/L Alkaline Phosphatase (39-117) U/L Total Creatine Kinase (26-140) U/L Troponin I High Sens (<3.5-17.0) ng/L B-Natriuretic Peptide (<100) pg/mL Total Protein (6.5-8.0) g/dL Albumin (3.5-5.0) g/dL Vitamin B12 463 (200-900) pg/mL Folate 16.2 (> or = 4.0) ng/mL TSH (0.32-4.0) uIU/mL Coronavirus (PCR) (Negative) Influenza Type A (PCR) (Negative) Influenza Type B (PCR) (Negative) RSV RNA Qual (PCR) (Negative) Discharge Plan Discharge Clinical Impression: Acute electrocardiogram changes Patient Disposition: Admitted As Inpatient
[2021-06-03 12:48] LABS: MANUAL DIFF FLAG NO
[2021-06-03 12:55] LABS: Prothrombin Time 11.8 SEC (9.9-13.0)
[2021-06-03 12:58] LABS: Partial Thromboplastin Time 39.4 SEC (24.1-38.0)
[2021-06-03 13:01] LABS: Basophils Absolute Auto 0.1 X10*3/uL (0.0-0.2); Basophils Percent Auto 0.5 % (0-2); Eosinophils Percent Auto 0.2 % (0-4); Hematocrit 33.6 % (37-47); Hemoglobin 11.2 g/dl (12.0-16.0); Imm Gran Abs Auto 0.03 X10*3/uL (0.00-0.03); Imm Gran Pct Auto 0.3 % (0.0-0.4); Lymphocytes Absolute Auto 1.8 X10*3/uL (1.2-4.9); Lymphocytes Percent Auto 17.5 % (20-40); Mean Corpuscular HGB Conc 33.3 g/dl (31.0-35.0); Mean Corpuscular Hemoglobin 30.2 pg (27.0-33.0); Mean Corpuscular Volume 90.6 fL (80-98); Mean Platelet Volume 10.3 fL (9.4-12.3); Monocytes Absolute Auto 0.9 X10*3/uL (0.1-1.2); Monocytes Percent Auto 8.4 % (2-11); Neutrophils Absolute Auto 7.5 X10*3/uL (2.0-8.3); Neutrophils Percent Auto 73.1 % (45-73); Platelet Count 343 X10*3/uL (160-400); Red Blood Count 3.71 X10*6/uL (4.20-5.50); Red Cell Distribution Width 12.5 % (11.0-16.0); White Blood Count 10.3 X10*3/uL (4.8-10.8)
[2021-06-03 13:29] LABS: Anion Gap 17 (12-20); Blood Urea Nitrogen 39 mg/dL (9-16); Carbon Dioxide 26 mmol/L (22-29); Chloride 103 mmol/L (96-108); Estimated Glomerular Filt Rate 48; Glucose Random 110 mg/dL (60-115); Potassium 3.8 mmol/L (3.3-5.1); Sodium 142 mmol/L (135-145)
[2021-06-03 13:33] LABS: Alanine Aminotransferase 24 U/L (0-31); Albumin Level 4.3 g/dL (3.5-5.0); Alkaline Phosphatase 51 U/L (39-117); Aspartate Amino Transferase 21 U/L (5-31); Bilirubin Direct 0.2 mg/dL (0.0-0.5); Bilirubin Total 0.3 mg/dL (0.0-1.0); Magnesium 2.1 mg/dL (1.6-2.6); Total Protein 6.9 g/dL (6.5-8.0)
[2021-06-03 13:37] LABS: B Type Natriuretic Peptide 86 pg/mL (<100); Troponin-I High Sensitivity < 3.5 ng/L (<3.5-17.0)
[2021-06-03 13:38] LABS: Influenza A PCR NEGATIVE (Negative); Influenza B PCR NEGATIVE (Negative); Resp Syncy Virus RNA Qual PCR NEGATIVE (Negative); SARS COV2 PCR INHOUSE NEGATIVE (Negative)
--- NOTE | 2021-06-03 14:25 | PHA.MEDREC ---
Pharmacy Consult ? Medication Reconciliation Pharmacy has completed the medication reconciliation.
--- NOTE | 2021-06-03 15:14 | PC.NURSE ---
Pt tolerated orthostatics w/o diff. denies dizziness and was steady on feet. aware of plan for admission.
--- NOTE | 2021-06-03 15:30 | PC.NURSE ---
Pt resting quietly. Skin pwd. is aware of plans for admission. up to have sml snack. describes lack of appetite recently. Awaits bedassignment. NSR onmonitor at this time.
--- NOTE | 2021-06-03 15:51 | PM.IMHP ---
History of Present Illness Date of Service: 06/03/21 Chief Complaint: pain in the fingers and some numbness 66 year old female with HTN who presents to the hospital because of pain in the fingers. She has been experiencing these for less than a week, a think it may have been started the other day when she sustained syncopal episode--circumstance not clear. She is also c/o of vague chest pain that she radiate at 1/10 and not necessary related to pain in the fingers. No sob, no n/v, no diaphoresis. Review of Systems Review of Systems: Gen: no fever Resp: no sob, no cough CV: no chest, no GUTIÉRREZ, no leg edema GI: No n/v, no abd pain Neuro: No confusion, pain in the fingers PMFSH Medical History Atrial septal aneurysm Essential hypertension Heart palpitations History of echocardiogram History of Holter monitoring Orthostatic hypotension Family History Father HTN (hypertension) Aortic dissection Mother HTN (hypertension) Surgical History No pertinent past surgical history Social History Alcohol intake: current Alcohol intake frequency: a few times a month Patient Tobacco Use Status: Never used Tobacco Use of substances other than those prescribed or required for medical reasons: No Advance Directives: No Advance Directives Information Provided: No Patient : No Meds Allergies Allergy/AdvReac Type Severity Reaction Status Date / Time No Known Allergies Allergy Verified 06/03/21 11:25 Active Medications: Current Medications Generic Name Dose Route Start Last Admin Trade Name Freq PRN Reason Stop Dose Admin Pharmacy Consult 1 each 06/03/21 14:09 Consult Rx Perform Med Rec MISCELLANE ONCE PRN Consult order Home Medications Medication Instructions Recorded Confirmed Last Taken Type aspirin 81 mg tablet,delayed 81 mg PO DAILY 03/13/21 06/03/21 06/03/21 History release atenolol 25 mg tablet 25 mg PO BEDTIME 03/13/21 06/03/21 06/02/21 History cholecalciferol (vitamin D3) 25 25 mcg PO DAILY 03/13/21 06/03/21 06/03/21 History mcg (1,000 unit) capsule lisinopril 40 mg tablet 40 mg PO DAILY@12 03/13/21 06/03/21 06/02/21 History triamterene 37.5 1 cap PO DAILY 03/13/21 06/03/21 06/03/21 History mg-hydrochlorothiazide 25 mg capsule Physical Exam Vital Signs and Narrative: Vital Signs: Last Vital Signs Temp 98.1 F 06/03/21 11:25 Pulse 102 H 06/03/21 15:14 Resp 18 06/03/21 14:00 BP 100/68 06/03/21 15:14 Pulse Ox 99 06/03/21 14:00 Body Mass Index 24.2 Constitutional Awake and Alert, No apparent distress Neck Supple, No lymphadenopathy Cardiovascular RRR, No M/R/G, S1 S2, No S3 S4, No pedal edema Respiratory Lungs clear, No respiratory distress Gastrointestinal Non tender, Non-distended Skin No rash Neurological Alert & oriented x3 Psychological Appropriate affect Results Labs CBC and Chem 7: 06/03/21 12:40 06/03/21 12:40 Labs: Laboratory Results - last 24 hr 06/03/21 06/03/21 06/03/21 12:39 12:40 12:40 MCV 90.6 MCH 30.2 MCHC 33.3 RDW 12.5 Plt Count 343 D MPV 10.3 Immature Gran % (Auto) 0.3 Neut % (Auto) 73.1 H Lymph % (Auto) 17.5 L [place] % (Auto) 8.4 Eos % (Auto) 0.2 Baso % (Auto) 0.5 Lymph # (Auto) 1.8 [place] # (Auto) 0.9 Eos # (Auto) 0.0 Baso # (Auto) 0.1 Abs Immat Gran (auto) 0.03 Absolute Neuts (auto) 7.5 Absolute Nucleated RBC 0.000 Nucleated RBC % (auto) 0.0 PT INR APTT Anion Gap 17 Estim Creat Clear Calc 47.0 Estimated GFR 48 Random Glucose 110 Calcium 10.0 Magnesium Total Bilirubin Direct Bilirubin AST ALT Alkaline Phosphatase Total Creatine Kinase Troponin I High Sens B-Natriuretic Peptide Total Protein Albumin Coronavirus (PCR) NEGATIVE Influenza Type A (PCR) NEGATIVE Influenza Type B (PCR) NEGATIVE RSV RNA Qual (PCR) NEGATIVE 06/03/21 06/03/21 06/03/21 12:40 12:40 12:40 MCV MCH MCHC RDW Plt Count MPV Immature Gran % (Auto) Neut % (Auto) Lymph % (Auto) [place] % (Auto) Eos % (Auto) Baso % (Auto) Lymph # (Auto) [place] # (Auto) Eos # (Auto) Baso # (Auto) Abs Immat Gran (auto) Absolute Neuts (auto) Absolute Nucleated RBC Nucleated RBC % (auto) PT INR APTT Anion Gap Estim Creat Clear Calc Estimated GFR Random Glucose Calcium Magnesium 2.1 Total Bilirubin 0.3 Direct Bilirubin 0.2 AST 21 ALT 24 Alkaline Phosphatase 51 Total Creatine Kinase 50 Troponin I High Sens < 3.5 B-Natriuretic Peptide 86 Total Protein 6.9 Albumin 4.3 Coronavirus (PCR) Influenza Type A (PCR) Influenza Type B (PCR) RSV RNA Qual (PCR) 06/03/21 12:40 MCV MCH MCHC RDW Plt Count MPV Immature Gran % (Auto) Neut % (Auto) Lymph % (Auto) [place] % (Auto) Eos % (Auto) Baso % (Auto) Lymph # (Auto) [place] # (Auto) Eos # (Auto) Baso # (Auto) Abs Immat Gran (auto) Absolute Neuts (auto) Absolute Nucleated RBC Nucleated RBC % (auto) PT 11.8 INR 1.0 APTT 39.4 H Anion Gap Estim Creat Clear Calc Estimated GFR Random Glucose Calcium Magnesium Total Bilirubin Direct Bilirubin AST ALT Alkaline Phosphatase Total Creatine Kinase Troponin I High Sens B-Natriuretic Peptide Total Protein Albumin Coronavirus (PCR) Influenza Type A (PCR) Influenza Type B (PCR) RSV RNA Qual (PCR) Imaging Radiologist's Impressions: Impressions Chest X-Ray 06/03/21 11:32 IMPRESSION: No acute disease. Assessment and Plan (1) Essential hypertension: Status: Acute Chest pain--pretty vague, ECG changes unimpressive, will see what cardiology take on this is, repeat troponin Pain in the fingers--not related to chest pain, sounds like carpal tunnel--Neuro consult, may benefit from outpatient EMG, check B12, folate and TSH HTN--continue home meds Lisinopril, Atenolol and Dyazide low risk for dvt Quality Stroke Does the patient have a stroke diagnosis?: No VTE Prior VTE?: No VTE Risk Level:: Medical - low VTE Device Contraindication: Treatment Not Indicated VTE Drug Contraindication: Treatment Not Indicated
[2021-06-03 16:43] LABS: Thyroid Stimulating Hormone 0.76 uIU/mL (0.32-4.0)
[2021-06-03 17:01] LABS: Folate 16.2 ng/mL (> or = 4.0); Vitamin B12 463 pg/mL (200-900)
[2021-06-03] MEDS: 0.9 % Sodium Chloride 1,000 ML 100 ML IVCONT (17:46)
[2021-06-03 17:50] LABS: Troponin-I High Sensitivity 4.6 ng/L (<3.5-17.0)
--- NOTE | 2021-06-03 17:58 | PC.NURSE ---
RN to RN with Guillermina.
[2021-06-03 18:06] LABS: Glucose Urine UA NEG (NEG); Leukocyte Esterase Urine NEG (NEG); Nitrite Urine NEG (NEG); Urine Blood NEG (NEG); Urine Ketones 15 MG/DL (NEG); Urine Protein NEG (NEG-TRACE)
[2021-06-03 18:13] LABS: Appearance Urine CLEAR; Color Urine YELLOW
--- NOTE | 2021-06-03 20:34 | PC.NURSE ---
Addendum entered by Wanda Herrera RN 06/03/21 22:18: one time dose of LR 1000 bolus ordered Original Note: Orthostatics done at 1999. Supine 108/65 p 74, sitting 96/64 p 98, standing 79/63 p 109. no c/o dizziness or chest pain while sitting or standing. notified.
[2021-06-03] MEDS: Lactated Ringers 1,000 ML 999 ML IV (21:56)
[2021-06-04] VITALS (7 sets, daily range): BP systolic 84–124; BP diastolic 48–86; PULSE 72–120; RESP 15–19; TEMP 36.6–37.1; O2SAT 98–100
[2021-06-04] MEDS: Acetaminophen 325 MG TABLET 650 MG PO ×2 (02:59→08:03)
[2021-06-04] MEDS: Cholecalciferol (Vitamin D3) 25 MCG TABLET PO (08:03)
[2021-06-04] MEDS: Aspirin Enteric Coated 81 MG TABLET.DR PO (08:03)
[2021-06-04] MEDS: 0.9 % Sodium Chloride Flush 3 ML SYRINGE IVFLUSH ×3 (08:07→20:36)
--- NOTE | 2021-06-04 13:04 | MHC.CM.PN ---
PT REPORTS SHE LIVES AT HOME WITH HER AND IS INDEPENDENT WITH ALL CARE. PT DENIES THE USE OF DME OR HOME/COMMUNITY SERVICES. PT CONFIRMS HER PCP IS JIMMY CAICEDO. PT DOES NOT HAVE A HCP BUT DID TAKE INFORMATION AND A DOCUMENT TO CONSIDER AT A LATER TIME. CURRENT DC PLAN IS HOME WITH NO SERVICES FAMILY TO TRANSPORT
--- NOTE | 2021-06-04 18:14 | P.PNIM_ITS ---
Subjective Subjective Date of Service: 06/04/21 Interval History: persistent pain and some numbness in hand Review of Systems no fever, no chest pain, numbness/pain in fingers Physical Exam 2 Vital Signs: Vital Signs: Last Vital Signs Temp 98.3 F 06/04/21 15:28 Pulse 72 06/04/21 15:28 Resp 15 06/04/21 15:28 BP 119/86 06/04/21 15:28 Pulse Ox 98 06/04/21 15:28 Body Mass Index 24.2 Const: Other: General: AO X 3, no acute distress Resp: CTA bilateral CVS: S1,S2,RRR GI: +BS, NT, no distention Skin: No rash Neuro: motor grossly intact Psych: appropriate affect Objective Data Current Medications Generic Name Dose Route Start Last Admin Trade Name Freq PRN Reason Stop Dose Admin Acetaminophen 650 mg 06/04/21 00:45 06/04/21 08:03 Acetaminophen 325 Mg Tablet PO 650 mg Q6H PRN Administration Pain, Mild (Pain Scale 1-3) Aspirin 81 mg 06/04/21 09:00 06/04/21 08:03 Aspirin Enteric Coated 81 Mg Tablet. PO 81 mg DAILY DOMINGO Administration Atenolol 25 mg 06/03/21 21:00 06/03/21 21:02 Atenolol 25 Mg Tablet PO Not Given BEDTIME [facility] Protocol Melatonin 6 mg 06/03/21 16:02 Melatonin 3 Mg Tablet PO BEDTIME PRN Insomnia Pharmacy Consult 1 each 06/03/21 14:09 Consult Rx Perform Med Rec MISCELLANE ONCE PRN Consult order Sodium Chloride 3 ml 06/04/21 00:00 06/04/21 17:24 0.9 % Sodium Chloride Flush 3 Ml Syringe IVFLUSH 3 ml QSHIFT DOMINGO Administration Vitamin D 25 mcg 06/04/21 09:00 06/04/21 08:03 Cholecalciferol (Vitamin D3) 25 Mcg Tablet PO 25 mcg DAILY DOMINGO Administration Labs CBC & Chem 7: 06/03/21 12:40 06/03/21 12:40 Assessment and Plan (1) Orthostatic hypotension: Status: Acute (2) Contusion of cervical cord: Status: Acute (3) Syncope: Status: Acute Assessment and Plan: Chest pain--pretty vague, ECG changes unimpressive, no further pain, no further testing at this time. Pain in the fingers--Not sure of etiology--Neuro consult, may benefit from outpatient EMG, check B12, folate and TSH HTN--Hold all meds, except for atenolol Orthosttic hypotension--likely from BP meds and cause of syncope, hold meds as abov low risk for dvt Quality Stroke Does the patient have a stroke diagnosis?: No VTE Prior VTE?: No VTE Risk Level:: Medical - low VTE Device Contraindication: Treatment Not Indicated VTE Drug Contraindication: Treatment Not Indicated
--- NOTE | 2021-06-04 18:19 | PM.NEUROCN ---
History of Present Illness Data of Consult Service Date: 06/04/21 Primary Care Provider: David Grider MD HPI Reason for consult: Pain and tingling in both hands following a fall from a syncopal episode 10 This is a 66-year-old woman with a history of essential hypertension who was on 4 different medications including amlodipine, lisinopril, triamterene, and metoprolol. She has had a couple of syncopal episodes and near blackout when she gets up in the last few weeks and to syncopal episodes. 10 days ago she got up and was negative. A refrigerator when everything went dark and she went down her. The when she came to her hands were stiff and painful and she could hardly move them and gradually the movement came back and she was left with residual severe pain and the paresthesia in both hands with sparing of the thumb. This has gradually gotten better but has not gone away. It sometimes keeps her up at night. She is not aware of any weakness in the arms or legs or bladder control problems. She CT scan of the head and cervical spine which did not show any acute fractures. Review of Systems Review of Systems: no fever, no chest pain, numbness/pain in fingers PMFSH Past Medical History Medical History (Updated 06/04/21 @ 18:22 by Magui Tenorio MD) Atrial septal aneurysm Essential hypertension Heart palpitations History of echocardiogram History of Holter monitoring Orthostatic hypotension Family History Family History Father HTN (hypertension) Aortic dissection Mother HTN (hypertension) Surgical History Surgical History No pertinent past surgical history Social History Social History Alcohol intake: current Alcohol intake frequency: a few times a month Patient Tobacco Use Status: Never used Tobacco Use of substances other than those prescribed or required for medical reasons: No Advance Directives: No Advance Directives Information Provided: No Patient : No service: No Current occupational status: employed Meds Allergies Allergy/AdvReac Type Severity Reaction Status Date / Time No Known Allergies Allergy Verified 06/03/21 11:25 Active Medications: Current Medications Generic Name Dose Route Start Last Admin Trade Name Freq PRN Reason Stop Dose Admin Acetaminophen 650 mg 06/04/21 00:45 06/04/21 08:03 Acetaminophen 325 Mg Tablet PO 650 mg Q6H PRN Administration Pain, Mild (Pain Scale 1-3) Aspirin 81 mg 06/04/21 09:00 06/04/21 08:03 Aspirin Enteric Coated 81 Mg Tablet. PO 81 mg DAILY DOMINGO Administration Atenolol 25 mg 06/03/21 21:00 06/03/21 21:02 Atenolol 25 Mg Tablet PO Not Given BEDTIME COUNT INCLUDES [facility] Protocol Melatonin 6 mg 06/03/21 16:02 Melatonin 3 Mg Tablet PO BEDTIME PRN Insomnia Pharmacy Consult 1 each 06/03/21 14:09 Consult Rx Perform Med Rec MISCELLANE ONCE PRN Consult order Sodium Chloride 3 ml 06/04/21 00:00 06/04/21 17:24 0.9 % Sodium Chloride Flush 3 Ml Syringe IVFLUSH 3 ml QSHIFT COUNT INCLUDES THE [facility] Administration Vitamin D 25 mcg 06/04/21 09:00 06/04/21 08:03 Cholecalciferol (Vitamin D3) 25 Mcg Tablet PO 25 mcg DAILY DOMINGO Administration Home Medications Medication Instructions Recorded Confirmed Last Taken Type aspirin 81 mg tablet,delayed 81 mg PO DAILY 03/13/21 06/03/21 06/03/21 History release atenolol 25 mg tablet 25 mg PO BEDTIME 03/13/21 06/03/21 06/02/21 History cholecalciferol (vitamin D3) 25 25 mcg PO DAILY 03/13/21 06/03/21 06/03/21 History mcg (1,000 unit) capsule lisinopril 40 mg tablet 40 mg PO DAILY@12 03/13/21 06/03/21 06/02/21 History triamterene 37.5 1 cap PO DAILY 03/13/21 06/03/21 06/03/21 History mg-hydrochlorothiazide 25 mg capsule Physical Exam Vital Signs: Vital Signs: Last Vital Signs Temp 98.3 F 06/04/21 15:28 Pulse 72 06/04/21 15:28 Resp 15 06/04/21 15:28 BP 119/86 06/04/21 15:28 Pulse Ox 98 06/04/21 15:28 Body Mass Index 24.2 Neuro: Deep tendon reflexes (DTR's): Right triceps reflex intensity grade: 3+, Left triceps reflex intensity grade: 3+, Rt Biceps (C5, C6): 3+, Left biceps reflex intensity grade: 3+, Right brachioradialis reflex intensity grade: 3+, Left brachioradialis reflex intensity grade: 3+, Right patellar reflex intensity grade: 3+, Left patellar reflex intensity grade: 3+, Right ankle reflex intensity grade: 3+ and Left ankle reflex intensity grade: 3+ Plantar Reflex Responses: downgoing: right and equivocal: left Results Labs CBC & Chem 7: 06/03/21 12:40 06/03/21 12:40 Assessment and Plan (1) Essential hypertension: Status: Acute (2) Cervical radiculopathy at C7: Status: Acute Traumatic lower cervical sensory root contusions with bilateral hand pain. Start gabapentin 300 mg at bedtime. Expect recovery over the next few weeks (3) Contusion of cervical cord: Status: Acute Cervical cord contusion with bilateral hyperreflexia, probaably from hyperextension of the neck during her fall. No need for any intervention at this time (4) Syncope: Status: Acute Check orthostatic hypotension. Adjust blood pressure medicines. Cardiac monitoring. Chest pain--pretty vague, ECG changes unimpressive, will see what cardiology take on this is, repeat troponin Pain in the fingers--not related to chest pain, sounds like carpal tunnel--Neuro consult, may benefit from outpatient EMG, check B12, folate and TSH HTN--continue home meds Lisinopril, Atenolol and Dyazide low risk for dvt Procedures Date of Service Date of Service: 06/04/21
[2021-06-04] MEDS: atenoloL 25 MG TABLET PO (20:34)
[2021-06-04] MEDS: Gabapentin 300 MG CAPSULE PO (20:34)
[2021-06-04] MEDS: Melatonin 3 MG TABLET 6 MG PO (22:04)
[2021-06-05] VITALS (15 sets, daily range): BP systolic 75–125; BP diastolic 47–79; PULSE 63–104; RESP 15–19; TEMP 36.1–36.8; O2SAT 98–100
[2021-06-05] MEDS: 0.9 % Sodium Chloride Flush 3 ML SYRINGE IVFLUSH (08:42)
[2021-06-05] MEDS: Aspirin Enteric Coated 81 MG TABLET.DR PO (08:42)
[2021-06-05] MEDS: Cholecalciferol (Vitamin D3) 25 MCG TABLET PO (08:42)
[2021-06-05] MEDS: 0.9 % Sodium Chloride 1,000 ML 999 ML IVCONT ×2 (09:57→14:16)
--- NOTE | 2021-06-05 11:52 | P.CONCA_ITS ---
History of Present Illness History of Present Illness Date of Service: 06/05/21 Requesting physician: Juan Soliman Chief complaint: chest pain, pain in the fingers Narrative: I was requested to see Bree in cardiology consultation today for low blood pressure and noted orthostatic hypotension on today's evaluation. She is a pleasant 66-year-old woman who has longstanding history of hypertension about 10 years in the past was very difficult control and was maintained on 4 different antihypertensives including amlodipine, lisinopril, atenolol and try midodrine hydrochlorothiazide combination. In January she was admitted with episode of syncope and at that time her triamterene hydrochlorothiazide was discontinued felt that this was over corrected blood pressure at that time. However is after discontinuing her diuretic she developed weight gain and leg ed jung and was restarted on diuretic regimen. She then subsequently had a workup with Holter monitor and echocardiogram which had shown normal structure of the heart. Repeat limited echocardiogram for bubble study was negative for any evidence of intracardiac shunting. Holter monitor did not show any significant arrhythmias. Patient then continued to have symptoms and about 10 days ago had another episode of syncope while she was walking up from the couch. At that time she was admitted had a cervical spine CT which had shown degenerative cervical spine disease and subsequently developed significant bilateral arm discomfort and numbness. Has been evaluated by Neurology and on discussion with hospitalist he seems like she has cervical spinal cord contusion along with cervical radiculopathy and is currently being treated with gabapentin. She does not have any focal weakness or numbness in her lower extremity or weakness upper extremities. She has no bowel or bladder complaints. This morning after standing up she did not feel well and a blood pressure dropped to systolic 70s. She has since received 1 L of normal saline bolus. Repeat orthostatics are pending. There is no clear history of any parkinsonian syndrome. No history of diabetes. No familial history of autonomic dysfunction. Review of Systems Constitutional: Constitutional: Reports no additional constitutional complaints Eyes: Eyes: Reports no additional eye complaints ENT: Reports system reviewed and no additional complaints, except as documented Cardiovascular: Cardiovascular: Reports no additional cardiovascular complaints Respiratory: Respiratory: Reports no additional respiratory complaints Gastrointestinal: Gastrointestinal: Reports no additional gastrointestinal complaints Genitourinary: Genitourinary: Reports no additional female genitourinary complaints Musculoskeletal: Musculoskeletal: Reports no additional musculoskeletal complaints and Reports tingling Integumentary/Breasts: Skin/Breast: Reports system reviewed and no additional complaints, except as docu Neurologic: Reports radicular pain, Reports tingling and Reports paresthesias Psychiatric: Psychiatric: Reports no additional psychiatric complaints Endocrine: Endocrine: Reports no additional endocrine complaints Hematologic/Lymphatic: Hematologic/Lymphatic: Reports no additional hematologic/lymphatic complaints Allergic/Immunologic: Allergic/Immunologic: Reports no additional allergic/immunologic complaints [facility] Past Medical History Medical History Atrial septal aneurysm Essential hypertension Heart palpitations History of echocardiogram History of Holter monitoring Orthostatic hypotension Family History Family History Father HTN (hypertension) Aortic dissection Mother HTN (hypertension) Surgical History Surgical History No pertinent past surgical history Social History Social History Alcohol intake: current Alcohol intake frequency: a few times a month Patient Tobacco Use Status: Never used Tobacco Use of substances other than those prescribed or required for medical reasons: No Advance Directives: No Advance Directives Information Provided: No Patient : No service: No Current occupational status: employed Meds Allergies Allergy/AdvReac Type Severity Reaction Status Date / Time No Known Allergies Allergy Verified 06/03/21 11:25 Active Medications: Current Medications Generic Name Dose Route Start Last Admin Trade Name Freq PRN Reason Stop Dose Admin Acetaminophen 650 mg 06/04/21 00:45 06/04/21 08:03 Acetaminophen 325 Mg Tablet PO 650 mg Q6H PRN Administration Pain, Mild (Pain Scale 1-3) Aspirin 81 mg 06/04/21 09:00 06/05/21 08:42 Aspirin Enteric Coated 81 Mg Tablet. PO 81 mg DAILY DOMINGO Administration Atenolol 25 mg 06/03/21 21:00 06/04/21 20:34 Atenolol 25 Mg Tablet PO 25 mg BEDTIME DOMINGO Administration Protocol Gabapentin 300 mg 06/04/21 21:00 06/04/21 20:34 Gabapentin 300 Mg Capsule PO 300 mg BEDTIME DOMINGO Administration Melatonin 6 mg 06/03/21 16:02 06/04/21 22:04 Melatonin 3 Mg Tablet PO 6 mg BEDTIME PRN Administration Insomnia Pharmacy Consult 1 each 06/03/21 14:09 Consult Rx Perform Med Rec MISCELLANE ONCE PRN Consult order Sodium Chloride 3 ml 06/04/21 00:00 06/05/21 08:42 0.9 % Sodium Chloride Flush 3 Ml Syringe IVFLUSH 3 ml QSHIFT DOMINGO Administration Vitamin D 25 mcg 06/04/21 09:00 06/05/21 08:42 Cholecalciferol (Vitamin D3) 25 Mcg Tablet PO 25 mcg DAILY DOMINGO Administration Home Medications Medication Instructions Recorded Confirmed Last Taken Type aspirin 81 mg tablet,delayed 81 mg PO DAILY 03/13/21 06/03/21 06/03/21 History release atenolol 25 mg tablet 25 mg PO BEDTIME 03/13/21 06/03/21 06/02/21 History cholecalciferol (vitamin D3) 25 25 mcg PO DAILY 03/13/21 06/03/21 06/03/21 History mcg (1,000 unit) capsule lisinopril 40 mg tablet 40 mg PO DAILY@12 03/13/21 06/03/21 06/02/21 History triamterene 37.5 1 cap PO DAILY 03/13/21 06/03/21 06/03/21 History mg-hydrochlorothiazide 25 mg capsule Physical Exam Vital Signs: Vital Signs: Last Vital Signs Temp 97.6 F 06/05/21 08:00 Pulse 104 H 06/05/21 09:00 Resp 19 06/05/21 08:00 BP 75/47 L 06/05/21 09:00 Pulse Ox 99 06/05/21 08:00 Body Mass Index 24.2 Const: General: cooperative, comfortable, no acute distress, alert and awake Nutritional Appearance: thin Orientation/consciousness: patient oriented x3 HENMT: Head: Yes normocephalic and Yes atraumatic Neck: Neck: Yes trachea midline, Yes supple and Yes no JVD Resp: Effort & Inspection: normal respiratory effort Auscultation: clear to auscultation bilaterally Cardio: Jugular venous distension: no JVD Palpation: normal PMI Rate: regular rate Rhythm: regular rhythm Heart sounds: S1 normal heart sound present, S2 normal heart sound present, no click, no gallops, no murmurs and no rubs GI: Auscultation: normal bowel sounds Skin: General skin exam: no rashes or lesions noted Neuro: General: patient oriented x3 and no focal motor deficits Extrem: General: Yes no clubbing, cyanosis or edema Results Labs and Meds Result diagrams: 06/03/21 12:40 06/03/21 12:40 ECG Interpretation: EKG shows normal sinus rhythm with lateral ST T wave changes which are more prominent compared to prior EKG Assessment and Plan (1) Syncope: Status: Acute Patient with prior history of syncope and now noted to have orthostatic hypotension which is the cause for her syncope. Etiology of orthostatic hypertension is unclear. She obviously has no recent history of significant bleeding, diarrhea nausea vomiting or dehydration. Possibility of autonomic dysfunction is high. Unclear etiology as to her autonomic dysfunction. She carries prior history of hypertension for many years and had to be treated with multiple antihypertensive agent and is possible that this could be related to her pharmacotherapy. She has been given a bolus of normal saline, will repeat orthostatic vitals. If this is corrected orthostatic hypotension, no further interventions are required and she would be managed with increased fluid and salt intake in her diet. Agree with holding her antihypertensive regimen including amlodipine, lisinopril and triamterene hydrochlorothiazide. On the quality assurance monitor final she is noted to have multiple runs of interpolated PVCs with bigeminy. Will continue atenolol therapy at nighttime. Will follow with the patient. Her main complaint currently is related to pain and numbness in both her upper extremity which is most likely related to cervical spinal cord/radicular discomfort. Procedures Date of Service Date of Service: 06/05/21
--- NOTE | 2021-06-05 15:48 | HO.PM.IMPN ---
Subjective Subjective Date of Service: 06/05/21 Interval History: xiao in f/u for orthostatic hypotension, persistent orthostatic hypotension even after IV Review of Systems Gen: no fever Resp: no sob, no cough CV: no chest, no GUTIÉRREZ, no leg edema GI: No n/v, no abd pain Neuro: No confusion, pain in fingers Physical Exam Vital Signs: Vital Signs: Last Vital Signs Temp 98.3 F 06/05/21 12:00 Pulse 101 H 06/05/21 12:46 Resp 19 06/05/21 12:00 BP 87/61 L 06/05/21 12:46 Pulse Ox 98 06/05/21 12:00 Body Mass Index 24.2 Const: Other: General: AO X 3, no acute distress Resp: CTA bilateral CVS: S1,S2,RRR GI: +BS, NT, no distention Skin: No rash Neuro: motor grossly intact Psych: appropriate affect Objective Data Current Medications Generic Name Dose Route Start Last Admin Trade Name Freq PRN Reason Stop Dose Admin Acetaminophen 650 mg 06/04/21 00:45 06/04/21 08:03 Acetaminophen 325 Mg Tablet PO 650 mg Q6H PRN Administration Pain, Mild (Pain Scale 1-3) Aspirin 81 mg 06/04/21 09:00 06/05/21 08:42 Aspirin Enteric Coated 81 Mg Tablet. PO 81 mg DAILY DOMINGO Administration Atenolol 25 mg 06/03/21 21:00 06/04/21 20:34 Atenolol 25 Mg Tablet PO 25 mg BEDTIME DOMINGO Administration Protocol Gabapentin 300 mg 06/04/21 21:00 06/04/21 20:34 Gabapentin 300 Mg Capsule PO 300 mg BEDTIME DOMINGO Administration Melatonin 6 mg 06/03/21 16:02 06/04/21 22:04 Melatonin 3 Mg Tablet PO 6 mg BEDTIME PRN Administration Insomnia Pharmacy Consult 1 each 06/03/21 14:09 Consult Rx Perform Med Rec MISCELLANE ONCE PRN Consult order Sodium Chloride 3 ml 06/04/21 00:00 06/05/21 08:42 0.9 % Sodium Chloride Flush 3 Ml Syringe IVFLUSH 3 ml QSHIFT DOMINGO Administration Vitamin D 25 mcg 06/04/21 09:00 06/05/21 08:42 Cholecalciferol (Vitamin D3) 25 Mcg Tablet PO 25 mcg DAILY DOMINGO Administration Labs CBC & Chem 7: 06/03/21 12:40 06/03/21 12:40 Assessment and Plan (1) Orthostatic hypotension: Status: Acute (2) Contusion of cervical cord: Status: Acute (3) Syncope: Status: Acute Assessment and Plan: Chest pain--pretty vague, ECG changes unimpressive, no further pain, no further testing at this time. Pain in the fingers--Not sure of etiology--Neuro consult, may benefit from outpatient EMG, check B12, folate and TSH HTN--Hold all meds, except for atenolol Orthosttic hypotension--likely from BP meds and cause of syncope, hold meds as abov. IVF and reassess and if persists then add Midodrine. Discussed with cardiology low risk for dvt Quality Stroke Does the patient have a stroke diagnosis?: No VTE Prior VTE?: No VTE Risk Level:: Medical - low VTE Device Contraindication: Treatment Not Indicated VTE Drug Contraindication: Treatment Not Indicated
[2021-06-05] MEDS: 0.9 % Sodium Chloride 1,000 ML 100 ML IV (19:02)
[2021-06-05] MEDS: Gabapentin 300 MG CAPSULE PO (21:57)
[2021-06-05] MEDS: atenoloL 25 MG TABLET PO (21:57)
[2021-06-05] MEDS: Melatonin 3 MG TABLET 6 MG PO (21:59)
[2021-06-06 03:38] VITALS: BP 108/64; PULSE 77; RESP 18; TEMP 36.4; O2SAT 98
[2021-06-06 08:00] VITALS: BP 115/71; PULSE 92; RESP 19; TEMP 36.6; O2SAT 100
[2021-06-06] MEDS: 0.9 % Sodium Chloride Flush 3 ML SYRINGE IVFLUSH (09:05)
[2021-06-06] MEDS: Cholecalciferol (Vitamin D3) 25 MCG TABLET PO (09:05)
[2021-06-06] MEDS: Aspirin Enteric Coated 81 MG TABLET.DR PO (09:05)
[2021-06-06 09:06] VITALS: BP 123/70; PULSE 79
[2021-06-06 09:08] VITALS: BP 114/65; PULSE 80
[2021-06-06 09:10] VITALS: BP 109/63; PULSE 91
--- NOTE | 2021-06-06 09:37 | P.DS_ITS ---
DS: Providers Provider Date of Service: 06/06/21 Date of admission: 06/03/21 16:02 Primary care physician: David Grider MD Consults: 06/03/21 16:38 Consult to Neurology Routine Consulting Provider: [facility] Reason for consultation: neuropathic pain in the fingers 06/05/21 09:16 Consult to Cardiology Routine Consulting Provider: Donta Jackson Reason for consultation: orthostatic hypo and syncope Has provider been notified: No DS: Diagnosis Discharge Diagnosis (1) Orthostatic hypotension: Status: Acute (2) Contusion of cervical cord: Status: Acute (3) Syncope: Status: Resolved DS: Summary Hospital Course Hospital Course: Chief Complaint: pain in the fingers 66 year old female with HTN who presents to the hospital because of pain in the fingers. She has been experiencing these for less than a week, a think it may have been started the other day when she sustained syncopal episode--circumstance not clear. She is also c/o of vague chest pain that she radiate at 1/10 and not necessary related to pain in the fingers.? No sob, no n/v, no diaphoresis. Hospital course: Patient was admitted and observed on telemetry and did not have any arrythmia to explain syncope. What we think happened is that patient's blood pressures were running low with Lisinpril, Tiamaterine and HCTZ and Atenolol. Her initial blood pressures in the hospital were very low with SBP in the 80s, she had significant orthosatic hypotenison which may have caused her syncope. Her BP meds were on hold excpet atenolol 25 mg daily. For Orthostatic Hypotension we treated with IVF Hydration. Orthostatic is much better this morning as follow: 123/70 pulse-79, sitting- 114/65 P-80 , standing- 109/63 P-91 and assymptomatic. As for the pain the hands, she was evaluatd by Dr. Vergara with the following remarks and recommendation: - Cervical radiculopathy at C7: ?-Traumatic lower cervical sensory root contusions with bilateral hand pain.? Start gabapentin 300 mg at bedtime.? Expect recovery over the next few week ? -Cervical cord contusion with bilateral hyperreflexia, probaably from hyperextension of the neck during her fall.? No need for any intervention at this time. I recommend outpatient follow up with Dr. Vergara within 2 weeks Time Spent with Patient Time attestation: Total time spent providing and/or coordinating discharge services: Discharge coordination time: Greater than 30 minutes Quality: Stroke Does the patient have a stroke diagnosis?: No Physical Exam Vital Signs: Vital Signs: Last Vital Signs Temp 97.9 F 06/06/21 08:00 Pulse 91 06/06/21 09:10 Resp 19 06/06/21 08:00 BP 109/63 06/06/21 09:10 Pulse Ox 100 06/06/21 08:00 Body Mass Index 24.2 Discharge Plan Discharge Anticipated Discharge Date/Time: 06/06/21 09:30 Patient Disposition: Home, Self-Care Discharge Diagnosis: Orthostatic Hypotension, Cervical radicolopathy Referrals: David Grider MD [Primary Care Provider] - 1 Week Magui Tenorio MD [Physician] - 2 Weeks Donta Jackson MD [Physician] - 1 Week Discharge Medications: New gabapentin 300 mg Capsule 300 mg PO BEDTIME Qty: 30 RF: 0 Continued atenolol 25 mg tablet 25 mg PO BEDTIME RF: 0 aspirin 81 mg tablet,delayed release (DR/EC) 81 mg PO DAILY RF: 0 cholecalciferol (vitamin D3) 25 mcg (1,000 unit) capsule 25 mcg PO DAILY RF: 0 Discontinued lisinopril 40 mg tablet 40 mg PO DAILY@12 RF: 0 triamterene-hydrochlorothiazid 37.5-25 mg capsule 1 cap PO DAILY RF: 0 Discharge Orders: Discharge Order (Routine); Ordered 06/06/21 Ordered By: Juan Soliman Diet: advance to usual diet Activity on Discharge: As tolerated Stand Alone Forms: Patient Portal Discharge page Care Plan Goals: prevent syncope, and low blood pressure Health Concerns: Orthostatic hypotension Plan of Treatment: Do not take Lisinopril or Triamterene-Hydrochlorothiazide continue taking Atenolol. Follow up with your Doctor, your Heart Doctor and (Neurologist). Take Gabapentin at Bedtime. Becareful when standing from laying to sitting position, wait 3 to 5 minutes in between, recommend checking your blood pressure at home sever times a week Assessment: As above Discharge Date/Time: 06/06/21 11:37
--- NOTE | 2021-06-06 10:19 | MHC.CM.PN ---
FEMALE 66 DX CHEST PAIN FINGERS TINGLING PAIN DISCHARGED TODAY TO HOME SELF CARE. pTS PROVIDING TRANSPORTATION.
--- NOTE | 2021-06-06 10:50 | PM.PNCARD ---
Subjective Subjective Date of Service: 06/06/21 Principal diagnosis: Orthostatic syncope Interval history: Patient is feeling better. This morning orthostatic vitals have improved. No significant other cardiac symptoms at this point time Review of Systems Review of Systems Yes all other systems are reviewed and are negative Constitutional: Reports no additional constitutional complaints Eyes: Reports no additional eye complaints Cardiovascular: Reports no additional cardiovascular complaints Respiratory: Reports no additional respiratory complaints Gastrointestinal: Reports no additional gastrointestinal complaints Genitourinary: Reports no additional female genitourinary complaints Musculoskeletal: Reports no additional musculoskeletal complaints Skin/Breast: Reports system reviewed and no additional complaints, except as docu Reports system reviewed and no additional complaints, except as documented Psychiatric: Reports no additional psychiatric complaints Endocrine: Reports no additional endocrine complaints Physical Exam Vital Signs: Last Vital Signs Temp 97.9 F 06/06/21 08:00 Pulse 91 06/06/21 09:10 Resp 19 06/06/21 08:00 BP 109/63 06/06/21 09:10 Pulse Ox 100 06/06/21 08:00 Body Mass Index 24.2 Const General: cooperative, comfortable, no acute distress, alert and awake Neck Neck: Yes trachea midline, Yes supple and Yes no JVD Resp Effort & Inspection: normal respiratory effort Auscultation: clear to auscultation bilaterally Cardio Jugular venous distension: no JVD Palpation: normal PMI Rate: regular rate Rhythm: regular rhythm Heart sounds: S1 normal heart sound present, S2 normal heart sound present, no click, no gallops and no murmurs Skin General skin exam: no rashes or lesions noted Results Labs and Meds Result diagrams: 06/03/21 12:40 06/03/21 12:40 Progress Note: A&P Assessment and plan (1) Syncope: Status: Acute Assessment and Plan: Recent onset symptoms over the last 6 months of syncope which is secondary to orthostatic hypotension. This is being corrected with IV fluid replenishment. Also her usual antihypertensives except for atenolol have been withheld. Her blood pressures remained well controlled despite that. She is advised to continue maintain aggressive hydration at home along with salt intake. This apprised or low but but she is agreeable. Advised to monitor blood pressure at home. Advised about orthostatic precaution. Had detailed discussion. Continue atenolol at nighttime. Advised to monitor blood pressure at home multiple times a day and maintain a log and bring it to the office visit. Patient can be discharged home today and follow up in the office in 7-10 days. Fall Risk Details Current Medications: Current Medications Generic Name Dose Route Start Last Admin Trade Name Alis PRN Reason Stop Dose Admin Acetaminophen 650 mg 06/04/21 00:45 06/04/21 08:03 Acetaminophen 325 Mg Tablet PO 650 mg Q6H PRN Administration Pain, Mild (Pain Scale 1-3) Aspirin 81 mg 06/04/21 09:00 06/06/21 09:05 Aspirin Enteric Coated 81 Mg Tablet. PO 81 mg DAILY DOMINGO Administration Atenolol 25 mg 06/03/21 21:00 06/05/21 21:57 Atenolol 25 Mg Tablet PO 25 mg BEDTIME DOMINGO Administration Protocol Gabapentin 300 mg 06/04/21 21:00 06/05/21 21:57 Gabapentin 300 Mg Capsule PO 300 mg BEDTIME DOMINGO Administration Melatonin 6 mg 06/03/21 16:02 06/05/21 21:59 Melatonin 3 Mg Tablet PO 6 mg BEDTIME PRN Administration Insomnia Pharmacy Consult 1 each 06/03/21 14:09 Consult Rx Perform Med Rec MISCELLANE ONCE PRN Consult order Sodium Chloride 3 ml 06/04/21 00:00 06/06/21 09:05 0.9 % Sodium Chloride Flush 3 Ml Syringe IVFLUSH 3 ml QSHIFT DOMINGO Administration Vitamin D 25 mcg 06/04/21 09:00 06/06/21 09:05 Cholecalciferol (Vitamin D3) 25 Mcg Tablet PO 25 mcg DAILY DOMINGO Administration Time Spent With Patient Time: Total time spent is greater than 50% in coordination of care (as documented) at patient's floor/unit and/or counseling patient: Time with patient: 15 - 24 minutes Progress Note: Quality Stroke Does the patient have a stroke diagnosis?: No Procedures Date of Service Date of Service: 06/06/21
== END 2021-06-06 11:37 | disposition home or self-care (01) ==
LOC: HO.ED 12:15 → HO.EDOVER 16:15 → HO.IMC 16:59
PROVIDERS: Physician Assistant; Admitting Provider Internal Medicine; Emergency Provider Emergency Medicine Emergency Medical Services; PCP Internal Medicine; Visit Provider Internal Medicine
DX: I95.1 Orthostatic hypotension (principal); M54.12 Radiculopathy, cervical region; S14.107A Unspecified injury at C7 level of cervical spinal cord, initial encounter; W18.30XA Fall on same level, unspecified, initial encounter; Y93.9 Activity, unspecified; Y92.009 Unspecified place in unspecified non-institutional (private) residence as the place of occurrence of the external cause; Y99.8 Other external cause status; R00.2 Palpitations; R07.9 Chest pain, unspecified; M79.646 Pain in unspecified finger(s); Z79.899 Other long term (current) drug therapy
CPT/HCPCS: 0241U; 36415; 71045; 80048; 80076; 81003; 82550; 82607; 82746; 83735; 83880; 84443; 84484; 85025; 85610; 85730; 93005; 96360; 96361; 99219; 99284; 99285

== ENCOUNTER → 2021-06-17 09:10 | Outpatient (BNVA) | payer OTHER, SELFPAY | PROVIDERS: PCP Internal Medicine; Referring Provider Internal Medicine; Visit Provider Internal Medicine ==

== ENCOUNTER 2021-06-19 08:27 | Outpatient (REF) | payer OTHER, SELFPAY ==
--- NOTE | ~2021-06-19 | US_ITS ---
EXAMINATION: US ABDOMEN COMPLETE CLINICAL INFORMATION: Abdominal pain. COMPARISON: None TECHNIQUE: Real-time imaging of the abdominal viscera. FINDINGS: PANCREAS: Normal. ABDOMINAL AORTA: The proximal, mid, and distal segments are normal in caliber. INFERIOR VENA CAVA: Visualized portions are normal. LIVER: The liver is normal in size. The liver contour is normal. Parenchymal echogenicity is normal. There is a 6 mm cyst in the left lobe. There is no intrahepatic biliary duct dilatation seen. GALLBLADDER: The gallbladder is normal in size. There is echogenic material seen in the neck of the gallbladder questionable for sludge versus a polyp. This measures 6 x 3 x 6 mm. No definite stone is seen. COMMON BILE DUCT: Normal in caliber measuring 0.13 cm in diameter. RIGHT KIDNEY: Normal No hydronephrosis or renal calculi. The kidney measures 9.6 cm in maximum dimension. LEFT KIDNEY: Normal. No hydronephrosis. No renal calculi or focal parenchymal lesions. The kidney measures 9.2 cm in maximum dimension. SPLEEN: Normal. The spleen measures 7.6 cm in maximum dimension. FREE FLUID: None. US/US abdomen complete IMPRESSION: Question sludge versus small polyp in the neck of the gallbladder.
== END 2021-06-19 08:28 | disposition home or self-care (01) ==
LOC: HO.HMGCX 08:27
PROVIDERS: PCP Internal Medicine; Visit Provider Internal Medicine
DX: R10.9 Unspecified abdominal pain (principal)
CPT/HCPCS: 76700

== ENCOUNTER → 2021-09-16 08:39 | Outpatient (BNVA) | payer OTHER, SELFPAY | PROVIDERS: PCP Internal Medicine; Referring Provider Internal Medicine; Visit Provider Internal Medicine ==

== ENCOUNTER 2021-09-24 10:11 | Outpatient (REF) | payer OTHER, SELFPAY ==
[2021-09-24 12:25] LABS: Anion Gap 15 (12-20); Blood Urea Nitrogen 21 mg/dL (9-16); Calcium 9.4 mg/dL (8.4-10.2); Carbon Dioxide 25 mmol/L (22-29); Chloride 105 mmol/L (96-108); Estimated Glomerular Filt Rate > 60; Glucose Random 81 mg/dL (60-115); Sodium 141 mmol/L (135-145)
== END 2021-09-24 10:12 | disposition home or self-care (01) ==
LOC: HO.10HDL 10:11
PROVIDERS: Visit Provider Internal Medicine
DX: I95.1 Orthostatic hypotension (principal)
CPT/HCPCS: 36415; 80048

== ENCOUNTER → 2021-12-23 08:11 | Outpatient (BNVA) | payer OTHER, SELFPAY | PROVIDERS: PCP Internal Medicine; Referring Provider Internal Medicine; Visit Provider Internal Medicine ==

== ENCOUNTER 2022-04-29 08:02 | Outpatient (REF) | payer OTHER, SELFPAY ==
--- NOTE | ~2022-04-29 | MM_ITS ---
EXAMINATION: MM SCREENING DIGITAL BREAST TOMOSYNTHESIS, BILATERAL CLINICAL INFORMATION: Screening. Asymptomatic. The lifetime risk of breast cancer based on the Tyrer-Cuzick Model is 8%. COMPARISON: Mammography: 04/26/2021, 04/20/2020, 04/15/2019 TECHNIQUE: Digital breast tomosynthesis is performed in both the craniocaudal and mediolateral oblique views along with computer-aided detection (CAD). Synthesized 2D images are generated from the tomosynthesis. FINDINGS: There are scattered areas of fibroglandular density (ACR BI-RADS breast composition Category b). There are no significant masses, abnormal calcifications, or other abnormalities. Parenchymal pattern is similar to prior studies. No developing density. No significant changes. MM/MM tomosynthesis screening BI IMPRESSION: No mammographic evidence of malignancy. ASSESSMENT: BI-RADS 1: Negative RECOMMENDATION: Routine annual mammography screening. This patient's information was entered into a reminder system with a target due date for their next mammogram.
== END 2022-04-29 08:03 | disposition home or self-care (01) ==
LOC: HO.MAMMO 08:02
PROVIDERS: PCP Internal Medicine; Visit Provider Internal Medicine
DX: Z12.31 Encounter for screening mammogram for malignant neoplasm of breast (principal)
CPT/HCPCS: 77063; 77067

== ENCOUNTER 2022-06-26 10:05 | Outpatient (REF) | payer MEDICARE, OTHER, SELFPAY ==
[2022-06-26 10:47] LABS: Anion Gap 14 (12-20); Blood Urea Nitrogen 20 mg/dL (9-16); Calcium 9.5 mg/dL (8.4-10.2); Carbon Dioxide 29 mmol/L (22-29); Chloride 103 mmol/L (96-108); Estimated Glomerular Filt Rate 60; Glucose Random 83 mg/dL (60-115); Potassium 3.9 mmol/L (3.3-5.1); Sodium 142 mmol/L (135-145)
== END 2022-06-26 10:06 | disposition home or self-care (01) ==
LOC: HO.10HDL 10:05
PROVIDERS: Visit Provider Internal Medicine
DX: I95.1 Orthostatic hypotension (principal); I25.3 Aneurysm of heart; I10 Essential (primary) hypertension; R00.2 Palpitations; Z79.899 Other long term (current) drug therapy
CPT/HCPCS: 36415; 80048; 93005

== ENCOUNTER 2022-12-03 07:46 | Outpatient (REF) | payer MEDICARE, OTHER, SELFPAY ==
[2022-12-03 10:40] LABS: MANUAL DIFF FLAG NO
[2022-12-03 10:44] LABS: Basophils Percent Auto 0.9 % (0-2); Eosinophils Absolute Auto 0.1 X10*3/uL (0.0-0.4); Eosinophils Percent Auto 1.5 % (0-4); Hematocrit 43.6 % (37.0-47.0); Hemoglobin 14.3 g/dl (12.0-16.0); Imm Gran Abs Auto 0.01 X10*3/uL (0.00-0.03); Imm Gran Pct Auto 0.2 % (0.0-0.4); Lymphocytes Absolute Auto 1.5 X10*3/uL (1.2-4.9); Lymphocytes Percent Auto 31.9 % (20-40); Mean Corpuscular HGB Conc 32.8 g/dl (31.0-35.0); Mean Corpuscular Volume 91.6 fL (80.0-98.0); Mean Platelet Volume 10.2 fL (9.4-12.3); Monocytes Absolute Auto 0.6 X10*3/uL (0.1-1.2); Neutrophils Absolute Auto 2.5 x10*3/uL (2.0-8.3); Neutrophils Percent Auto 53.5 % (45-73); Platelet Count 180 X10*3/uL (160-400); Red Blood Count 4.76 X10*6/uL (4.20-5.50); Red Cell Distribution Width 12.6 % (11.0-16.0); White Blood Count 4.7 X10*3/uL (4.8-10.8)
[2022-12-03 11:49] LABS: Alanine Aminotransferase 13 U/L (0-31); Albumin Level 4.1 g/dL (3.5-5.0); Alkaline Phosphatase 50 U/L (39-117); Anion Gap 16 (12-20); Aspartate Amino Transferase 20 U/L (5-31); Bilirubin Total 0.7 mg/dL (0.0-1.0); Blood Urea Nitrogen 18 mg/dL (9-16); Calcium 9.6 mg/dL (8.4-10.2); Carbon Dioxide 26 mmol/L (22-29); Chloride 105 mmol/L (96-108); Cholesterol 236 mg/dL; Estimated Glomerular Filt Rate > 60; Glucose Fasting 82 mg/dL (60-99); HDL Cholesterol 79 mg/dL; LDL Cholesterol Calculated 147 mg/dl; Sodium 143 mmol/L (135-145); Total Protein 6.7 g/dL (6.5-8.0); Triglycerides 54 mg/dL
[2022-12-03 11:55] LABS: Vitamin D 25-OH Total 37.1 ng/mL (>30)
== END 2022-12-03 07:47 | disposition home or self-care (01) ==
LOC: HO.10HDL 07:46
PROVIDERS: Visit Provider Internal Medicine
DX: Z00.00 Encounter for general adult medical examination without abnormal findings (principal)
CPT/HCPCS: 36415; 80053; 80061; 82306; 85025

== ENCOUNTER 2023-05-05 07:22 | Outpatient (REF) | payer MEDICARE, OTHER, SELFPAY ==
--- NOTE | ~2023-05-05 | MM_ITS ---
EXAMINATION: MM SCREENING DIGITAL BREAST TOMOSYNTHESIS, BILATERAL CLINICAL INFORMATION: Screening. Asymptomatic. The lifetime risk of breast cancer based on the Tyrer-Cuzick Model is 7.3%. COMPARISON: Mammography: This study is compared with prior exams dating back to 2019. TECHNIQUE: Digital breast tomosynthesis is performed in both the craniocaudal and mediolateral oblique views along with computer-aided detection (CAD). Synthesized 2D images are generated from the tomosynthesis. FINDINGS: There are scattered areas of fibroglandular density (ACR BI-RADS breast composition Category b). There are no significant masses, abnormal calcifications, or other abnormalities. MM/MM tomosynthesis screening BI IMPRESSION: No mammographic evidence of malignancy. ASSESSMENT: BI-RADS BI-RADS 1 - Negative RECOMMENDATION: Routine annual mammography screening. 1 year F/U This examination should not preclude the clinical evaluation of a suspicious palpable abnormality. This patient's information was entered into a reminder system with a target due date for their next mammogram.
== END 2023-05-05 07:23 | disposition home or self-care (01) ==
LOC: HO.MAMMO 07:22
PROVIDERS: PCP Internal Medicine; Visit Provider Internal Medicine
DX: Z12.31 Encounter for screening mammogram for malignant neoplasm of breast (principal)
CPT/HCPCS: 77063; 77067

== ENCOUNTER → 2023-05-05 07:30 | Outpatient (BNV) | payer MEDICARE, OTHER, SELFPAY | PROVIDERS: PCP Internal Medicine; Visit Provider Radiology Diagnostic Radiology | DX: Z12.31 Encounter for screening mammogram for malignant neoplasm of breast (principal) | CPT/HCPCS: 77063; 77067 ==

== ENCOUNTER 2023-06-02 11:35 | Emergency (ER) | payer MEDICARE, OTHER, SELFPAY ==
--- NOTE | 2023-06-02 | ECG_ITS ---
Test Reason : ?stroke Blood Pressure : / mmHG Vent. Rate : 068 BPM Atrial Rate : 068 BPM P-R Int : 162 ms QRS Dur : 094 ms QT Int : 390 ms P-R-T Axes : 055 037 054 degrees QTc Int : 414 ms Normal sinus rhythm Normal ECG When compared with ECG of 03-JUN-2021 11:53, Premature ventricular complexes are no longer Present T wave inversion no longer evident in Inferior leads T wave inversion no longer evident in Lateral leads Referred By: Generic ED Physician Electronically Signed By:Param Gray
--- NOTE | ~2023-06-02 | CT_ITS ---
EXAMINATION: CT HEAD WITHOUT CONTRAST (STROKE PROTOCOL) CLINICAL INFORMATION: Stroke protocol. COMPARISON: Head CT scan dated 05/24/2021. TECHNIQUE: Contiguous axial imaging was performed from the skull base to vertex without intravenous administration of contrast. Coronal and sagittal reformatted images were obtained. This CT examination was performed using dose optimization techniques as appropriate, variously including the following: *Automated exposure control *Adjustment of mA and/or kV according to patient size (this includes techniques or standardized protocols for targeted exams where dose is matched to indication/reason for exam; i.e. extremities or head) *Use of iterative reconstruction technique DLP: 585 mGy-cm FINDINGS: The cortical sulci are normal. The lateral ventricles are symmetrical. The third and fourth ventricles are in their normal midline position. The basilar and prepontine cisterns are unremarkable. There is no acute intra or extracerebral abnormality. There is no mass effect or midline shift. Sections through the bony calvarium are unremarkable. The paranasal sinuses are clear. The bony orbits and orbital contents are unremarkable. CT/CT head for stroke IMPRESSION: No acute intracranial pathology.
--- NOTE | ~2023-06-02 | MR_ITS ---
EXAMINATION: MR BRAIN WITHOUT CONTRAST CLINICAL INFORMATION: Transient global amnesia. COMPARISON: Head CT 06/02/2023. TECHNIQUE: Limited MRI containing sagittal T1 and axial diffusion sequences were obtained. MR/MR head/brain wo con FINDINGS/IMPRESSION: On the diffusion sequence, no restricted diffusion is seen with special attention to the hippocampi and temporal lobes. No abnormalities seen on the sagittal T1 acquisition. There is no mass effect or midline shift. 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 Consider repeat imaging if patient is able.
--- NOTE | 2023-06-02 11:39 | ED.NEUROSD ---
HPI - Neuro Symptoms/Deficit General Chief Complaint: Neuro Symptoms/Deficit Stated Complaint: Sudden Onset Memory Loss Time Seen by Provider: 06/02/23 12:09 Source: patient and family Mode of arrival: ambulatory Limitations: no limitations History of Present Illness HPI Narrative: 68-year-old female past medical history significant for hypertension presented today for evaluation of loss of memory for 1 day. Patient declined any headache, head trauma, fever, chills, nausea, vomiting, blurry vision, or memory issues. Patient declined using any drugs or alcohol. Related Data Home Medications Medication Instructions Recorded Confirmed aspirin 81 mg tablet,delayed 81 mg PO DAILY 03/13/21 06/26/22 release atenolol 25 mg tablet 25 mg PO BEDTIME 03/13/21 06/26/22 cholecalciferol (vitamin D3) 25 25 mcg PO DAILY 03/13/21 06/26/22 mcg (1,000 unit) capsule hydrochlorothiazide 12.5 mg tablet 12.5 mg PO DAILY 09/16/21 06/26/22 Previous Rx's Medication Instructions Recorded gabapentin 300 mg capsule 300 mg PO BEDTIME #30 caps 06/06/21 spironolactone 25 mg tablet 25 mg PO DAILY #90 tabs 12/01/22 Allergies Allergy/AdvReac Type Severity Reaction Status Date / Time No Known Allergies Allergy Verified 06/26/22 09:56 Review of Systems Review of Systems: All other systems are reviewed and are negative Constitutional: Reports as per HPI and Reports no additional constitutional complaints Eyes: Reports as per HPI and Reports no additional eye complaints Reports system reviewed and no additional complaints, except as documented Cardiovascular: Reports as per HPI and Reports no additional cardiovascular complaints Respiratory: Reports as per HPI and Reports no additional respiratory complaints Gastrointestinal: Reports as per HPI and Reports no additional gastrointestinal complaints Genitourinary: Reports no additional female genitourinary complaints Musculoskeletal: Reports no additional musculoskeletal complaints Skin/Breast: Reports system reviewed and no additional complaints, except as docu Psychiatric: Reports no additional psychiatric complaints Endocrine: Reports no additional endocrine complaints Hematologic/Lymphatic: Reports no additional hematologic/lymphatic complaints Allergic/Immunologic: Reports no additional allergic/immunologic complaints Reports system reviewed and no additional complaints, except as documented and Reports Abnormal speech present COUNTS INCLUDE 234 BEDS AT THE [facility] Past Medical History Medical History Acute electrocardiogram changes Atrial septal aneurysm Essential hypertension Heart palpitations History of echocardiogram History of Holter monitoring Orthostatic hypotension Surgical History No pertinent past surgical history Family History Family History Father HTN (hypertension) Aortic dissection Mother HTN (hypertension) Social History Social History Alcohol intake: current Alcohol intake frequency: a few times a month Patient Tobacco Use Status: Never used Tobacco Smoked in Last 30 Days: No Use of substances other than those prescribed or required for medical reasons: No Advance Directives: No Advance Directives Information Provided: Yes service: No Current occupational status: employed Physical Exam Vital Signs: Vital Signs: Last Vital Signs Temp 98.3 F 06/02/23 15:04 Pulse 69 06/02/23 15:04 Resp 13 06/02/23 15:04 BP 148/73 H 06/02/23 15:04 Pulse Ox 100 06/02/23 15:04 O2 Del Method Room Air 06/02/23 15:04 BMI result Body Mass Index 24.2 Vital signs have been reviewed as appeared to be correct. Blood pressure normal. Heart rate normal. Respiration rate normal. Temperature normal. Oxygen saturation normal. Appearance: Alert. Oriented X3. No acute distress. Head: Normal external exam. Normocephalic. Atraumatic. No Figueroa signs noted. No raccoon eyes noted Eyes: PERRLA. EOMI. Conjunctiva and sclera normal. Eyelids normal. ENT: TM's Normal. Pharynx normal. Uvula midline. Moist mucous membranes. No trismus noted. No drooling noted. No muffled voice noted. Neck: Normal inspection. Neck supple. FROM. No adenopathy. Thyroid Normal. No meningeal signs. No neck mass noted. CVS: Normal heart rate and rhythm. Heart sound normal. No murmurs noted. Pulses normal throughout. Respiratory: No respiratory distress. Painless inspiration. Breath sounds normal. No wheezes/rales/rhonchi noted. Chest nontender. No accessory muscle usage noted or decreased air movement noted. Abdomen: Soft and nontender. Bowel sounds normal in all 4 quadrants. No distention noted. No organomegaly noted. No visible injury noted. Back: No CVA tenderness. Full range of motion noted. Skin: Skin warm and dry. Normal skin color. Normal skin turgor. No rashes/lesions/lacerations noted. Extremities: No lower extremity edema. Extremities exhibit normal range of motion. Extremities nontender. Neuro: Oriented X 3, short-term deficit patient could not remember 3 thinks was told to remember, remote memory is intact Cranial nerve exam: II-XII are grossly intact No motor deficit. No sensory deficit. Reflexes normal. Course Course Course Narrative: RME - 68 yo female with history of HTN who presents to the ER for evaluation of sudden onset of memory loss that started at 11am today. Does not remember any events of yesterday or earlier this morning. No weakness, numbness, tingling, vision changes. Plan: go back to treatment room for full evaluation. Dr. Lima aware Reevaluation(s) Reevaluation #1: Transient global amnesia, normal neuro exam, no neuro deficit, normal CT of the head, pending MRI of the head, patient signed out to Dr. Roland to re-evaluate the patient and follow-up on the MRI. Time: 16:09 Medications Administered Discontinued Medications Generic Name Dose Route Start Last Admin Trade Name Freq PRN Reason Stop Dose Admin Thiamine HCl 500 mg/ Sodium 105 mls @ 210 mls/hr 06/02/23 12:55 06/02/23 15:33 Chloride IV 06/02/23 13:24 Infused ONCE ONE Infusion Medical Decision Making Differential Diagnosis Differential Diagnoses: The differential diagnosis associated with the presentation includes (CVA, transient global amnesia, electrolyte abnormality, severe anemia, drug abuse, UTI.) Admission/Observation Consideration of admission/observation: Escalation of care including admission/observation considered Lab Data MDM Lab Attestation statement: I reviewed the patient's lab results. 06/02/23 11:51 06/02/23 11:51 Labs: Lab Results 06/02/23 06/02/23 06/02/23 Range/Units 11:51 11:51 11:51 WBC 6.0 (4.8-10.8) X10*3/uL RBC 5.27 (4.20-5.50) X10*6/uL Hgb 16.3 H (12.0-16.0) g/dl Hct 49.6 H (37.0-47.0) % MCV 94.1 (80.0-98.0) fL MCH 30.9 (27.0-33.0) pg MCHC 32.9 (31.0-35.0) g/dl RDW 12.6 (11.0-16.0) % Plt Count 214 (160-400) X10*3/uL MPV 9.9 (9.4-12.3) fL Immature Gran % (Auto) 0.3 (0.0-0.4) % Neut % (Auto) 60.9 (45-73) % Lymph % (Auto) 27.5 (20-40) % Ramsey % (Auto) 9.7 (2-11) % Eos % (Auto) 0.8 (0-4) % Baso % (Auto) 0.8 (0-2) % Lymph # (Auto) 1.7 (1.2-4.9) X10*3/uL Ramsey # (Auto) 0.6 (0.1-1.2) X10*3/uL Eos # (Auto) 0.1 (0.0-0.4) X10*3/uL Baso # (Auto) 0.1 (0.0-0.2) X10*3/uL Abs Immat Gran (auto) 0.02 (0.00-0.03) X10*3/uL Absolute Neuts (auto) 3.7 (2.0-8.3) x10*3/uL Absolute Nucleated RBC 0.000 (0.0-0.012) X10*3/uL Nucleated RBC % (auto) 0.0 (0.0-0.2) /100WBC PT 10.6 L (11.1-13.3) SEC INR 0.9 (0.9-1.1) APTT 36.3 (26.0-36.4) SEC Sodium 140 (135-145) mmol/L Potassium 4.2 (3.3-5.1) mmol/L Chloride 102 (96-108) mmol/L Carbon Dioxide 27 (22-29) mmol/L Anion Gap 15 (12-20) BUN 18 H (9-16) mg/dL Creatinine 0.99 (0.5-1.4) mg/dL Estim Creat Clear Calc 54.3 Estimated GFR 56 POC Glucose (60-115) mg/dL Random Glucose 111 (60-115) mg/dL Calcium 10.2 D (8.4-10.2) mg/dL Magnesium 2.0 (1.6-2.6) mg/dL Total Bilirubin 0.7 (0.0-1.0) mg/dL Direct Bilirubin 0.2 (0.0-0.5) mg/dL AST 22 (5-31) U/L ALT 13 (0-31) U/L Alkaline Phosphatase 51 (39-117) U/L Total Protein 8.2 H (6.5-8.0) g/dL Albumin 4.6 (3.5-5.0) g/dL Urine Color Urine Appearance Urine pH (5.0-9.0) Ur Specific Tony (1.005-1.025) Urine Protein (Neg-Trace) mg/dL Urine Glucose (UA) (Negative) mg/dL Urine Ketones (Negative) mg/dL Urine Blood (Negative) Urine Nitrite (Negative) Ur Leukocyte Esterase (Negative) Urine Opiates Screen (Not Detect) Urine Fentanyl Screen (Not Detect) Ur Barbiturates Screen (Not Detect) Ur Phencyclidine Scrn (Not Detect) Ur Amphetamines Screen (Not Detect) U Benzodiazepines Scrn (Not Detect) Urine Cocaine Screen (Not Detect) U Marijuana (THC) Screen (Not Detect) Ethyl Alcohol < 10 mg/dL 06/02/23 06/02/23 06/02/23 Range/Units 11:59 13:57 13:57 WBC (4.8-10.8) X10*3/uL RBC (4.20-5.50) X10*6/uL Hgb (12.0-16.0) g/dl Hct (37.0-47.0) % MCV (80.0-98.0) fL MCH (27.0-33.0) pg MCHC (31.0-35.0) g/dl RDW (11.0-16.0) % Plt Count (160-400) X10*3/uL MPV (9.4-12.3) fL Immature Gran % (Auto) (0.0-0.4) % Neut % (Auto) (45-73) % Lymph % (Auto) (20-40) % Ramsey % (Auto) (2-11) % Eos % (Auto) (0-4) % Baso % (Auto) (0-2) % Lymph # (Auto) (1.2-4.9) X10*3/uL Ramsey # (Auto) (0.1-1.2) X10*3/uL Eos # (Auto) (0.0-0.4) X10*3/uL Baso # (Auto) (0.0-0.2) X10*3/uL Abs Immat Gran (auto) (0.00-0.03) X10*3/uL Absolute Neuts (auto) (2.0-8.3) x10*3/uL Absolute Nucleated RBC (0.0-0.012) X10*3/uL Nucleated RBC % (auto) (0.0-0.2) /100WBC PT (11.1-13.3) SEC INR (0.9-1.1) APTT (26.0-36.4) SEC Sodium (135-145) mmol/L Potassium (3.3-5.1) mmol/L Chloride (96-108) mmol/L Carbon Dioxide (22-29) mmol/L Anion Gap (12-20) BUN (9-16) mg/dL Creatinine (0.5-1.4) mg/dL Estim Creat Clear Calc Estimated GFR POC Glucose 100 (60-115) mg/dL Random Glucose (60-115) mg/dL Calcium (8.4-10.2) mg/dL Magnesium (1.6-2.6) mg/dL Total Bilirubin (0.0-1.0) mg/dL Direct Bilirubin (0.0-0.5) mg/dL AST (5-31) U/L ALT (0-31) U/L Alkaline Phosphatase (39-117) U/L Total Protein (6.5-8.0) g/dL Albumin (3.5-5.0) g/dL Urine Color Yellow Urine Appearance Clear Urine pH 7.0 (5.0-9.0) Ur Specific Tony 1.010 (1.005-1.025) Urine Protein Negative (Neg-Trace) mg/dL Urine Glucose (UA) Negative (Negative) mg/dL Urine Ketones Negative (Negative) mg/dL Urine Blood Negative (Negative) Urine Nitrite Negative (Negative) Ur Leukocyte Esterase Negative (Negative) Urine Opiates Screen Not Detected (Not Detect) Urine Fentanyl Screen Not Detected (Not Detect) Ur Barbiturates Screen Not Detected (Not Detect) Ur Phencyclidine Scrn Not Detected (Not Detect) Ur Amphetamines Screen Not Detected (Not Detect) U Benzodiazepines Scrn Not Detected (Not Detect) Urine Cocaine Screen Not Detected (Not Detect) U Marijuana (THC) Screen Not Detected (Not Detect) Ethyl Alcohol mg/dL Independent Interpretation I performed an independent interpretation of an: EKG (Normal sinus rhythm at 68 beats per minute, normal axis deviation, normal intervals, no ST-T changes.) and CT Scan (Head: No acute intracranial pathology.) Radiology Impression Discussion of test interpretation with radiology: I have reviewed the radiologist's reading. NIH Stroke Scale Time: 12:58 Level of Consciousness: Alert Level of Consciousness Questions: Answers both questions correctly Level of Consciousness Commands: Performs both tasks correctly Best Gaze: Normal Visual: No visual loss Facial Palsy: Normal Motor Arm (Right): No drift Motor Arm (Left): No drift Motor Leg (Right): No drift Motor Leg (Left): No drift Limb Ataxia: Absent Sensory: Normal Best Language: No aphasia Dysarthia: Normal Extinction and Inattention: No abnormality Score: 0 Discharge Plan Discharge Clinical Impression: Transient global amnesia Patient Disposition: Still a Patient Prescriptions: No Action spironolactone 25 mg tablet 25 mg PO DAILY Qty: 90 4RF gabapentin 300 mg Capsule 300 mg PO BEDTIME Qty: 30 0RF atenolol 25 mg tablet 25 mg PO BEDTIME aspirin 81 mg tablet,delayed release (DR/EC) 81 mg PO DAILY cholecalciferol (vitamin D3) 25 mcg (1,000 unit) capsule 25 mcg PO DAILY hydrochlorothiazide 12.5 mg tablet 12.5 mg PO DAILY
[2023-06-02 11:41] VITALS: BP 168/84; PULSE 73; RESP 18; TEMP 36.4; O2SAT 99; BMI 24.2
[2023-06-02 12:01] LABS: MANUAL DIFF FLAG NO
[2023-06-02 12:03] VITALS: BP 176/100; PULSE 73; RESP 15; O2SAT 94
[2023-06-02 12:03] LABS: Glucose, Whole Blood 100 mg/dL (60-115)
[2023-06-02 12:03] LABS: Basophils Absolute Auto 0.1 X10*3/uL (0.0-0.2); Basophils Percent Auto 0.8 % (0-2); Eosinophils Absolute Auto 0.1 X10*3/uL (0.0-0.4); Eosinophils Percent Auto 0.8 % (0-4); Hematocrit 49.6 % (37.0-47.0); Hemoglobin 16.3 g/dl (12.0-16.0); Imm Gran Abs Auto 0.02 X10*3/uL (0.00-0.03); Imm Gran Pct Auto 0.3 % (0.0-0.4); Lymphocytes Absolute Auto 1.7 X10*3/uL (1.2-4.9); Lymphocytes Percent Auto 27.5 % (20-40); Mean Corpuscular HGB Conc 32.9 g/dl (31.0-35.0); Mean Corpuscular Hemoglobin 30.9 pg (27.0-33.0); Mean Corpuscular Volume 94.1 fL (80.0-98.0); Mean Platelet Volume 9.9 fL (9.4-12.3); Monocytes Absolute Auto 0.6 X10*3/uL (0.1-1.2); Monocytes Percent Auto 9.7 % (2-11); Neutrophils Absolute Auto 3.7 x10*3/uL (2.0-8.3); Neutrophils Percent Auto 60.9 % (45-73); Platelet Count 214 X10*3/uL (160-400); Red Blood Count 5.27 X10*6/uL (4.20-5.50); Red Cell Distribution Width 12.6 % (11.0-16.0)
[2023-06-02 12:11] LABS: INTERNATIONAL NORM RATIO 0.9 (0.9-1.1); Prothrombin Time 10.6 SEC (11.1-13.3)
[2023-06-02 12:13] LABS: Partial Thromboplastin Time 36.3 SEC (26.0-36.4)
[2023-06-02 12:44] LABS: Alanine Aminotransferase 13 U/L (0-31); Albumin Level 4.6 g/dL (3.5-5.0); Alkaline Phosphatase 51 U/L (39-117); Anion Gap 15 (12-20); Aspartate Amino Transferase 22 U/L (5-31); Bilirubin Direct 0.2 mg/dL (0.0-0.5); Bilirubin Total 0.7 mg/dL (0.0-1.0); Blood Urea Nitrogen 18 mg/dL (9-16); Calcium 10.2 mg/dL (8.4-10.2); Carbon Dioxide 27 mmol/L (22-29); Chloride 102 mmol/L (96-108); Creatinine Clr Calc Pharmacy 54.3; Estimated Glomerular Filt Rate 56; Ethanol < 10 mg/dL; Glucose Random 111 mg/dL (60-115); Potassium 4.2 mmol/L (3.3-5.1); Sodium 140 mmol/L (135-145); Total Protein 8.2 g/dL (6.5-8.0)
[2023-06-02] MEDS: Thiamine HCL 500 MG in 0.9 % Sodium Chloride 100 ML 210 MG IV (13:55)
[2023-06-02 14:08] LABS: Appearance Urine Clear; Color Urine Yellow; Glucose Urine UA Negative (Negative); Leukocyte Esterase Urine Negative (Negative); Nitrite Urine Negative (Negative); Urine Blood Negative (Negative); Urine Ketones Negative (Negative); Urine Protein Negative (Neg-Trace)
[2023-06-02 14:17] LABS: Amphetamine Screen Urine Not Detected (Not Detect); Barbiturates, Urine Not Detected (Not Detect); Benzodiazepines Screen Urine Not Detected (Not Detect); Cannabinoid Screen Urine Not Detected (Not Detect); Cocaine Screen Urine Not Detected (Not Detect); Fentanyl, urine Not Detected (Not Detect); Opiate Screen Urine Not Detected (Not Detect); Phencyclidine Screen Urine Not Detected (Not Detect)
[2023-06-02 15:04] VITALS: BP 148/73; PULSE 69; RESP 13; TEMP 36.8; O2SAT 100
[2023-06-02 16:28] VITALS: BP 147/79; PULSE 72; RESP 12; TEMP 36.8; O2SAT 96
[2023-06-02 18:32] VITALS: BP 142/73; PULSE 73; RESP 16; TEMP 36.7; O2SAT 98
== END 2023-06-02 18:43 | disposition home or self-care (01) ==
PROVIDERS: Physician Assistant; Emergency Provider Emergency Medicine; PCP Internal Medicine
DX: G45.4 Transient global amnesia (principal); R29.700 NIHSS score 0; Z79.899 Other long term (current) drug therapy
CPT/HCPCS: 36415; 70450; 70551; 80048; 80076; 80307; 81003; 82947; 83735; 85025; 85610; 85730; 93005; 96365; 96366; 99285; J3411

== ENCOUNTER → 2023-06-02 12:09 | Outpatient (BNV) | payer MEDICARE, OTHER, SELFPAY | PROVIDERS: Emergency Provider Emergency Medicine; PCP Internal Medicine; Visit Provider Internal Medicine Cardiovascular Disease | DX: I49.3 Ventricular premature depolarization (principal) | CPT/HCPCS: 93010 ==

== ENCOUNTER 2023-06-30 08:44 | Outpatient (AMB) | payer MEDICARE, OTHER, SELFPAY ==
--- NOTE | 2023-06-30 08:50 | MHC.OFFVIS ---
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 In the past, she was seen regarding low blood pressures. She has hypertension for which she was on numerous medications including atenolol, lisinopril, amlodipine, triamterene/hydrochlorothiazide in the past. Due to markedly low blood pressures, she was actually admitted to the hospital and rehydrated. Then was taking only Atenolol/Hydrochlorothiazide. However, blood pressure was again going high. Then we added spironolactone to the regimen. After this, blood pressure is improved significantly. Overall, doing good. No specific cardiac complaints. Apparently came to the ER with some memory issues; subsequently improved. MRI had shown basal ganglia infarct but chronic. [facility]LY [facility] Medical History Acute electrocardiogram changes Atrial septal aneurysm Essential hypertension Heart palpitations History of echocardiogram History of Holter monitoring Orthostatic hypotension Surgical History No pertinent past surgical history Family History Father HTN (hypertension) Aortic dissection Mother HTN (hypertension) Social History Alcohol intake: current Alcohol intake frequency: a few times a month Patient Tobacco Use Status: Never used Tobacco service: No Current occupational status: employed Review of Systems Const Denies chills, Denies fatigue, Denies fever(s), Denies frequent falls, Denies weakness, Denies weight gain and Denies weight loss ENT Denies dizziness Card Denies chest pain, Denies leg edema, Denies lightheadedness, Denies palpitations, Denies dyspnea, Denies dyspnea on exertion, Denies orthopnea and Denies other (Loss of consciousness) Resp Denies cough, Denies dyspnea and Denies dyspnea on exertion GI Denies hematochezia and Denies change in bowel habits Musc Denies abnormal gait, Denies muscle weakness, Denies numbness, Denies radiating pain into limb and Denies tingling Neuro Denies abnormal gait, Denies dizziness, Denies frequent falls, Denies numbness, Denies tingling and Denies weakness Endo Denies fatigue and Denies palpitations Physical Exam Vital Signs: Last Vital Signs Pulse 71 06/30/23 08:51 BP 130/78 06/30/23 08:51 BMI result Body Mass Index 25.3 Const General: comfortable and no acute distress Orientation/consciousness: patient oriented x3 HEENT Other: Unremarkable Head: Yes normal to inspection Neck Neck: Yes normal visual inspection Chest Chest palpation & inspection: normal inspection of the chest Resp Auscultation: clear to auscultation bilaterally Cardio Palpation: normal PMI Heart sounds: S1 normal heart sound present, S2 normal heart sound present, no gallops, no murmurs and no rubs GI Palpation (GI): Soft to palpation Back/Spine/Pelvis Other: unremarkable Skin General skin exam: no rashes or lesions noted Neuro General: patient oriented x3 Extrem General: Yes normal to inspection Psych Mental Status: mental status grossly normal Assessment & Plan Assessment & Plan (1) Orthostatic hypotension: Code(s): I95.1 - Orthostatic hypotension Plan: Stable. (2) Essential hypertension: Code(s): I10 - Essential (primary) hypertension Plan: No recent issues. Continue current regimen. Renal function stable. Potassium is also stable. (3) Atrial septal aneurysm: Code(s): I25.3 - Aneurysm of heart Plan: Bubble study is negative. (4) Stroke: Code(s): I63.9 - Cerebral infarction, unspecified Plan: Brain CT scan shows no acute pathology. In the MRI, chronic infarct in the right basal ganglia. ER diagnosis was transient global amnesia. She has seen Dr. Tenorio in the past and can do a follow-up visit. Discussed with patient. In the interim, check carotid ultrasound. Start statins. Okay to do follow-up lipids with her own PCP. Orders: Orders US carotid duplex BI Today I65.23 - Occlusion and stenosis of bilateral carotid arteries Referrals Neurology Referral I63.9 - Cerebral infarction, unspecified Medications: New rosuvastatin (Crestor) 20 mg PO DAILY 90 tabs 3RF Coding Level of Care Code Est Pt Level 4 (91189) Diagnoses Orthostatic hypotension I95.1 Essential hypertension I10 Atrial septal aneurysm I25.3 Stroke I63.9
[2023-06-30 08:51] VITALS: BP 130/78; PULSE 71; BMI 25.3
== END 2023-06-30 09:14 | disposition home or self-care (01) ==
PROVIDERS: PCP Internal Medicine; Referring Provider Internal Medicine; Visit Provider Internal Medicine
DX: I95.1 Orthostatic hypotension (principal); I10 Essential (primary) hypertension; I25.3 Aneurysm of heart; I63.9 Cerebral infarction, unspecified
CPT/HCPCS: 99214

== ENCOUNTER → 2023-06-30 08:44 | Outpatient (BNVA) | payer OTHER, SELFPAY | PROVIDERS: PCP Internal Medicine; Referring Provider Internal Medicine; Visit Provider Internal Medicine ==

== ENCOUNTER → 2023-07-03 07:00 | Outpatient (BNV) | payer MEDICARE, OTHER, SELFPAY | PROVIDERS: PCP Internal Medicine; Visit Provider Internal Medicine Cardiovascular Disease | DX: I47.1 Supraventricular tachycardia (principal) | CPT/HCPCS: 93244 ==

== ENCOUNTER → 2023-07-03 11:19 | Outpatient (REF) | payer MEDICARE, OTHER, SELFPAY ==
--- NOTE | 2023-07-03 | HM_ITS ---
Conclusion: 1. Patient was monitored for total period of 3 days 2. Baseline was normal sinus rhythm with average heart of 66 beats per minute 3. No significant pauses noted 4. Rare ectopy noted 5. Three supraventricular run, longest lasting 6 beats and the fastest at 118 beats per minute suggestive of PAT 6. No patient reported symptoms although 1 marked counter correlated with sinus rhythm MTDD
== END ==
LOC: HO.CARD 11:19
PROVIDERS: PCP Internal Medicine; Visit Provider Internal Medicine
DX: I69.30 Unspecified sequelae of cerebral infarction (principal); I47.1 Supraventricular tachycardia
CPT/HCPCS: 93242

== ENCOUNTER 2023-07-09 14:55 | Outpatient (REF) | payer MEDICARE, OTHER, SELFPAY ==
--- NOTE | ~2023-07-09 | US_ITS ---
EXAMINATION: US EXTRACRANIAL CAROTID DUPLEX, BILATERAL CLINICAL INFORMATION: Carotid stenosis. COMPARISON: None available. TECHNIQUE: Real-time ultrasound and Doppler techniques (integrating B-mode 2-D vascular images, Doppler spectral analysis and color-flow Doppler imaging) were utilized to interrogate the extracranial carotid arteries, the vertebral arteries and proximal subclavian arteries bilaterally. The degree of stenosis is determined by criteria similar to NASCET. FINDINGS: Right Side: 1. There is mild atherosclerotic plaque seen in the bifurcation/proximal ICA region. 2. The common carotid artery PSV proximally is 74 cm/s and distally 75 cm/s. 3. The proximal internal carotid artery velocities are 68 cm/s systolic and 21 cm/s diastolic. 4. The proximal external carotid artery PSV is 76 cm/s. 5. The vertebral artery shows antegrade flow. 6. The subclavian artery waveforms are normal. Left Side: 1. There is mild atherosclerotic plaque seen in the bifurcation/proximal ICA region. 2. The common carotid artery PSV proximally is 81 cm/s and distally 71 cm/s. 3. The proximal internal carotid artery velocities are 83 cm/s systolic and 18 cm/s diastolic. 4. The proximal external carotid artery PSV is 66 cm/s. 5. The vertebral artery shows antegrade flow. 6. The subclavian artery waveforms are normal. US/US carotid duplex BI IMPRESSION: 1. RIGHT: Minimal, non-hemodynamically significant stenosis of the proximal right internal carotid artery corresponding to a 0-49% stenosis by velocity criteria. 2. LEFT: Minimal, non-hemodynamically significant stenosis of the proximal left internal carotid artery corresponding to a 0-49% stenosis by velocity criteria.
== END 2023-07-09 14:56 | disposition home or self-care (01) ==
LOC: HO.US 14:55
PROVIDERS: PCP Internal Medicine; Visit Provider Internal Medicine
DX: I65.23 Occlusion and stenosis of bilateral carotid arteries (principal)
CPT/HCPCS: 93880

== ENCOUNTER 2023-09-01 09:02 | Outpatient (REF) | payer MEDICARE, OTHER, SELFPAY ==
[2023-09-01 11:09] LABS: Alanine Aminotransferase 20 U/L (0-31); Albumin Level 4.3 g/dL (3.5-5.0); Alkaline Phosphatase 54 U/L (39-117); Anion Gap 12 (12-20); Aspartate Amino Transferase 27 U/L (5-31); Bilirubin Total 0.6 mg/dL (0.0-1.0); Blood Urea Nitrogen 19 mg/dL (9-16); Calcium 9.7 mg/dL (8.4-10.2); Carbon Dioxide 28 mmol/L (22-29); Chloride 105 mmol/L (96-108); Cholesterol 163 mg/dL (<200); Estimated Glomerular Filt Rate 52; Glucose Fasting 90 mg/dL (60-99); HDL Cholesterol 82 mg/dL (>40); LDL Cholesterol Calculated 72 mg/dL (<100); Potassium 3.9 mmol/L (3.3-5.1); Sodium 141 mmol/L (135-145); Total Protein 7.3 g/dL (6.5-8.0); Triglycerides 49 mg/dL (<150)
== END 2023-09-01 09:03 | disposition home or self-care (01) ==
LOC: HO.10HDL 09:02
PROVIDERS: Visit Provider Internal Medicine
DX: I10 Essential (primary) hypertension (principal); E78.00 Pure hypercholesterolemia, unspecified
CPT/HCPCS: 36415; 80053; 80061; 82550

== ENCOUNTER 2023-12-14 11:14 | Outpatient (REF) | payer MEDICARE, OTHER, SELFPAY ==
[2023-12-14 12:04] LABS: Alanine Aminotransferase 15 U/L (0-31); Albumin Level 4.2 g/dL (3.5-5.0); Alkaline Phosphatase 58 U/L (39-117); Anion Gap 12 (12-20); Aspartate Amino Transferase 20 U/L (5-31); Bilirubin Total 0.7 mg/dL (0.0-1.0); Blood Urea Nitrogen 16 mg/dL (9-16); Calcium 9.4 mg/dL (8.4-10.2); Carbon Dioxide 29 mmol/L (22-29); Chloride 104 mmol/L (96-108); Cholesterol 165 mg/dL (<200); Estimated Glomerular Filt Rate > 60; Glucose Fasting 93 mg/dL (60-99); HDL Cholesterol 77 mg/dL (>40); LDL Cholesterol Calculated 71 mg/dL (<100); Sodium 141 mmol/L (135-145); Total Protein 7.3 g/dL (6.5-8.0); Triglycerides 85 mg/dL (<150)
== END 2023-12-14 11:15 | disposition home or self-care (01) ==
LOC: HO.LAB 11:14
PROVIDERS: PCP Internal Medicine; Visit Provider Internal Medicine
DX: I10 Essential (primary) hypertension (principal); E78.00 Pure hypercholesterolemia, unspecified; N18.9 Chronic kidney disease, unspecified
CPT/HCPCS: 36415; 80053; 80061

== ENCOUNTER 2024-05-10 07:17 | Outpatient (REF) | payer MEDICARE, OTHER, SELFPAY | END 2024-05-10 07:18 | disposition home or self-care (01) | LOC: HO.MAMMO 07:17 | PROVIDERS: PCP Internal Medicine; Visit Provider Internal Medicine | DX: Z12.31 Encounter for screening mammogram for malignant neoplasm of breast (principal) | CPT/HCPCS: 77063; 77067 ==

== ENCOUNTER → 2024-05-10 07:30 | Outpatient (BNV) | payer MEDICARE, OTHER, SELFPAY | PROVIDERS: PCP Internal Medicine; Visit Provider Radiology Diagnostic Radiology | DX: Z12.31 Encounter for screening mammogram for malignant neoplasm of breast (principal) | CPT/HCPCS: 77063; 77067 ==

== ENCOUNTER 2024-07-05 08:49 | Outpatient (AMB) | payer MEDICARE, OTHER, SELFPAY ==
[2024-07-05 08:54] VITALS: BP 120/60; PULSE 64; BMI 25.9
--- NOTE | 2024-07-05 08:54 | MHC.OFFVIS ---
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 In the past, she was seen regarding low blood pressures. She has hypertension for which she was on numerous medications including atenolol, lisinopril, amlodipine, triamterene/hydrochlorothiazide in the past. Due to markedly low blood pressures, she was actually admitted to the hospital and rehydrated. Then was taking only Atenolol/Hydrochlorothiazide. However, blood pressure was again going high. Then we added spironolactone to the regimen. After this, blood pressure is improved significantly. Overall, she states she is doing good. No specific complaints. No angina or in fact any cardiac symptoms. FOR[facility]LY [facility], LATER [facility] Medical History Acute electrocardiogram changes History of echocardiogram History of Holter monitoring Atrial septal aneurysm Orthostatic hypotension Heart palpitations Essential hypertension Surgical History No pertinent past surgical history Family History Father HTN (hypertension) Aortic dissection Mother HTN (hypertension) Social History Alcohol intake: current Alcohol intake frequency: a few times a month Patient Tobacco Use Status: Never used Tobacco service: No Current occupational status: employed Review of Systems Const Denies chills, Denies fatigue, Denies fever(s), Denies frequent falls, Denies weakness, Denies weight gain and Denies weight loss ENT Denies dizziness Card Denies chest pain, Denies leg edema, Denies lightheadedness, Denies palpitations, Denies dyspnea and Denies dyspnea on exertion Resp Denies cough, Denies dyspnea and Denies dyspnea on exertion GI Denies hematochezia Musc Denies abnormal gait, Denies muscle weakness, Denies numbness, Denies radiating pain into limb and Denies tingling Neuro Denies abnormal gait, Denies dizziness, Denies frequent falls, Denies numbness, Denies tingling and Denies weakness Endo Denies fatigue and Denies palpitations Physical Exam Vital Signs: Last Vital Signs Pulse 64 07/05/24 08:54 BP 120/60 07/05/24 08:54 BMI result Body Mass Index 25.9 Const General: comfortable and no acute distress Orientation/consciousness: patient oriented x3 HEENT Other: Unremarkable Head: Yes normal to inspection Neck Neck: Yes normal visual inspection Chest Chest palpation & inspection: normal inspection of the chest Resp Auscultation: clear to auscultation bilaterally Cardio Palpation: normal PMI Heart sounds: S1 normal heart sound present, S2 normal heart sound present, no gallops, no murmurs and no rubs GI Palpation (GI): Soft to palpation Back/Spine/Pelvis Other: unremarkable Skin General skin exam: no rashes or lesions noted Neuro General: patient oriented x3 Extrem General: Yes normal to inspection Psych Mental Status: mental status grossly normal Office Procedures EKG Details: EKG with underlying sinus rhythm at 64/Min; no significant ST-T changes and otherwise unremarkable[place] [id number], Complete Assessment & Plan Assessment & Plan (1) Orthostatic hypotension: Code(s): I95.1 - Orthostatic hypotension Category: Medical Plan: Stable. (2) Essential hypertension: Code(s): I10 - Essential (primary) hypertension Category: Medical Plan: Stable. Check renal function. (3) Atrial septal aneurysm: Code(s): I25.3 - Aneurysm of heart Category: Medical Plan: Bubble study is negative. (4) Family history of aortic dissection: Code(s): Z82.49 - Family history of ischemic heart disease and other diseases of the circulatory system Category: Medical Plan: Per patient, father had aortic dissection and from the same when he was 75 years old. We will do a screening CT of the chest and abdomen for aneurysm. Orders: Orders CT angio abdomen Today I71.9 - Aortic aneurysm of unspecified site, without rupture CT angio chest aorta Today I71.9 - Aortic aneurysm of unspecified site, without rupture Basic Metabolic Panel Today I95.1 - Orthostatic hypotension Medications: Changed From rosuvastatin (Crestor) 20 mg PO DAILY 90 tabs 3RF To rosuvastatin (Crestor) 10 mg PO DAILY Coding Level of Care Code Est Pt Level 4 (10392) Diagnoses Orthostatic hypotension I95.1 Essential hypertension I10 Atrial septal aneurysm I25.3 Family history of aortic dissection Z82.49 CPT Codes EKG - CPT: 10921-[id number], Complete ([id number])
== END 2024-07-05 09:34 | disposition home or self-care (01) ==
PROVIDERS: PCP Internal Medicine; Visit Provider Internal Medicine
DX: I95.1 Orthostatic hypotension (principal); I10 Essential (primary) hypertension; I25.3 Aneurysm of heart; Z82.49 Family history of ischemic heart disease and other diseases of the circulatory system
CPT/HCPCS: 93010; 99214

== ENCOUNTER → 2024-07-05 08:49 | Outpatient (BNVA) | payer MEDICARE, OTHER, SELFPAY | PROVIDERS: PCP Internal Medicine; Visit Provider Internal Medicine | DX: I95.1 Orthostatic hypotension (principal); I10 Essential (primary) hypertension; I25.3 Aneurysm of heart; Z82.49 Family history of ischemic heart disease and other diseases of the circulatory system; Z79.899 Other long term (current) drug therapy | CPT/HCPCS: 93005 ==

== ENCOUNTER 2024-08-09 09:36 | Outpatient (REF) | payer MEDICARE, OTHER, SELFPAY ==
[2024-08-09 11:39] LABS: Anion Gap 11 (12-20); Blood Urea Nitrogen 20 mg/dL (9-16); Calcium 9.6 mg/dL (8.4-10.2); Carbon Dioxide 28 mmol/L (22-29); Chloride 106 mmol/L (96-108); Estimated Glomerular Filt Rate > 60; Glucose Random 87 mg/dL (60-115); Potassium 3.8 mmol/L (3.3-5.1); Sodium 141 mmol/L (135-145)
== END 2024-08-09 09:37 | disposition home or self-care (01) ==
LOC: HO.10HDL 09:36
PROVIDERS: Visit Provider Internal Medicine
DX: I95.1 Orthostatic hypotension (principal)
CPT/HCPCS: 36415; 80048

== ENCOUNTER 2024-08-22 07:41 | Outpatient (REF) | payer MEDICARE, OTHER, SELFPAY ==
--- NOTE | ~2024-08-22 | CT_ITS ---
EXAMINATION: CT ANGIOGRAM AORTOGRAPHY CLINICAL INFORMATION: Aortic aneurysm COMPARISON: None. TECHNIQUE: Multiple axial images were obtained through the chest and abdomen after the administration of 100 mL of intravenous Omnipaque 350. Images were evaluated on independent dedicated 3-D workstation and 3-D images were reconstructed with concurrent radiologist supervision and subsequently interpreted. This CT examination was performed using dose optimization techniques as appropriate, variously including the following: *Automated exposure control *Adjustment of mA and/or kV according to patient size (this includes techniques or standardized protocols for targeted exams where dose is matched to indication/reason for exam; i.e. extremities or head) *Use of iterative reconstruction technique DLP: 208 mGy-cm FINDINGS: VASCULAR FINDINGS: Heart: Normal in size. Coronary artery calcifications not present. Aorta: No aneurysm or dissection of the thoracoabdominal aorta. No penetrating atheromatous ulcer. Ascending Thoracic Aorta (largest diameter): 31 x 31 mm Aortic Arch: Three vessel arch. 25 mm Descending thoracic aorta (at level of main PA): 23 x 23 mm Infrarenal Abdominal Aorta: 15 x 14 mm Mesenteric Arteries: Celiac artery is patent. Superior mesenteric artery patent. Inferior mesenteric artery patent. Renal Arteries: Single renal arteries bilaterally. Renal arteries are patent and without stenosis or other vascular anomaly. Iliac arteries: The imaged proximal common iliac arteries patent. NONVASCULAR FINDINGS: THORAX: Thyroid Gland: Left thyroid nodule 6 mm. Lymph Nodes: No supraclavicular, axillary, mediastinal or hilar lymphadenopathy is identified. Mediastinum: No pathologic lymphadenopathy. Airways: The trachea and central bronchi are normal. Lungs: No airspace consolidation. No suspicious nodules or masses. Pleura: No pleural effusion. No pneumothorax. ABDOMEN/PELVIS: Liver: Homogeneous in attenuation. Normal in size. Gallbladder: Noninflamed. Biliary System: No intrahepatic or extrahepatic biliary dilation. Pancreas: Homogeneous in attenuation. Spleen: Normal in size. Kidneys/Bladder: Bilateral kidneys demonstrate symmetric enhancement. No perinephric fluid collection, nephrolithiasis or hydronephrosis bilaterally. Adrenal Glands: Unremarkable. GI: The visualized alimentary tract is normal in course. No evidence of obstruction. Appendix: The appendix is seen in its entirety and is unremarkable. Peritoneum: No pneumoperitoneum. No intra-abdominal fluid collection. Lymph Nodes: No pathologically enlarged abdominal lymph nodes. Soft Tissues/Musculoskeletal: Degenerative changes at L5-S1. CT/CT angio abdomen IMPRESSION: VASCULAR FINDINGS: No aneurysm or dissection of the thoracoabdominal aorta. NONVASCULAR FINDINGS: No acute pathology of the chest, abdomen, or pelvis. Fleischner guidelines were followed. Electronically signed by: Liazndro Em DO 09/03/2024 02:16 PM [facility] [place]
--- NOTE | ~2024-08-22 | CT_ITS ---
EXAMINATION: CT ANGIOGRAM AORTOGRAPHY CLINICAL INFORMATION: Aortic aneurysm COMPARISON: None. TECHNIQUE: Multiple axial images were obtained through the chest and abdomen after the administration of 100 mL of intravenous Omnipaque 350. Images were evaluated on independent dedicated 3-D workstation and 3-D images were reconstructed with concurrent radiologist supervision and subsequently interpreted. This CT examination was performed using dose optimization techniques as appropriate, variously including the following: *Automated exposure control *Adjustment of mA and/or kV according to patient size (this includes techniques or standardized protocols for targeted exams where dose is matched to indication/reason for exam; i.e. extremities or head) *Use of iterative reconstruction technique DLP: 208 mGy-cm FINDINGS: VASCULAR FINDINGS: Heart: Normal in size. Coronary artery calcifications not present. Aorta: No aneurysm or dissection of the thoracoabdominal aorta. No penetrating atheromatous ulcer. Ascending Thoracic Aorta (largest diameter): 31 x 31 mm Aortic Arch: Three vessel arch. 25 mm Descending thoracic aorta (at level of main PA): 23 x 23 mm Infrarenal Abdominal Aorta: 15 x 14 mm Mesenteric Arteries: Celiac artery is patent. Superior mesenteric artery patent. Inferior mesenteric artery patent. Renal Arteries: Single renal arteries bilaterally. Renal arteries are patent and without stenosis or other vascular anomaly. Iliac arteries: The imaged proximal common iliac arteries patent. NONVASCULAR FINDINGS: THORAX: Thyroid Gland: Left thyroid nodule 6 mm. Lymph Nodes: No supraclavicular, axillary, mediastinal or hilar lymphadenopathy is identified. Mediastinum: No pathologic lymphadenopathy. Airways: The trachea and central bronchi are normal. Lungs: No airspace consolidation. No suspicious nodules or masses. Pleura: No pleural effusion. No pneumothorax. ABDOMEN/PELVIS: Liver: Homogeneous in attenuation. Normal in size. Gallbladder: Noninflamed. Biliary System: No intrahepatic or extrahepatic biliary dilation. Pancreas: Homogeneous in attenuation. Spleen: Normal in size. Kidneys/Bladder: Bilateral kidneys demonstrate symmetric enhancement. No perinephric fluid collection, nephrolithiasis or hydronephrosis bilaterally. Adrenal Glands: Unremarkable. GI: The visualized alimentary tract is normal in course. No evidence of obstruction. Appendix: The appendix is seen in its entirety and is unremarkable. Peritoneum: No pneumoperitoneum. No intra-abdominal fluid collection. Lymph Nodes: No pathologically enlarged abdominal lymph nodes. Soft Tissues/Musculoskeletal: Degenerative changes at L5-S1. CT/CT angio chest aorta IMPRESSION: VASCULAR FINDINGS: No aneurysm or dissection of the thoracoabdominal aorta. NONVASCULAR FINDINGS: No acute pathology of the chest, abdomen, or pelvis. Fleischner guidelines were followed. Electronically signed by: Lizandro Em DO 09/03/2024 02:16 PM EST
[2024-08-22] MEDS: iohexoL 350 MG/ML 100 ML INFUS..BTL IV (08:34)
== END 2024-08-22 07:42 | disposition home or self-care (01) ==
LOC: HO.CT 07:41
PROVIDERS: PCP Internal Medicine; Visit Provider Internal Medicine
DX: I71.9 Aortic aneurysm of unspecified site, without rupture (principal)
CPT/HCPCS: 71275; 74175; Q9967

== ENCOUNTER 2024-09-08 10:57 | Outpatient (REF) | payer MEDICARE, OTHER, SELFPAY ==
[2024-09-08 13:35] LABS: MANUAL DIFF FLAG NO
[2024-09-08 13:39] LABS: Basophils Absolute Auto 0.1 X10*3/uL (0.0-0.2); Eosinophils Absolute Auto 0.1 X10*3/uL (0.0-0.4); Eosinophils Percent Auto 1.2 % (0-4); Hematocrit 44.9 % (37.0-47.0); Hemoglobin 15.2 g/dl (12.0-16.0); Imm Gran Abs Auto 0.01 X10*3/uL (0.00-0.03); Imm Gran Pct Auto 0.2 % (0.0-0.4); Lymphocytes Absolute Auto 1.6 X10*3/uL (1.2-4.9); Lymphocytes Percent Auto 31.8 % (20-40); Mean Corpuscular HGB Conc 33.9 g/dl (31.0-35.0); Mean Corpuscular Hemoglobin 30.9 pg (27.0-33.0); Mean Corpuscular Volume 91.3 fL (80.0-98.0); Mean Platelet Volume 9.8 fL (9.4-12.3); Monocytes Absolute Auto 0.5 X10*3/uL (0.1-1.2); Monocytes Percent Auto 9.4 % (2-11); Neutrophils Absolute Auto 2.8 x10*3/uL (2.0-8.3); Neutrophils Percent Auto 56.4 % (45-73); Platelet Count 201 X10*3/uL (160-400); Red Blood Count 4.92 X10*6/uL (4.20-5.50); Red Cell Distribution Width 12.5 % (11.0-16.0); White Blood Count 4.9 X10*3/uL (4.8-10.8)
[2024-09-08 16:11] LABS: Vitamin D 25-OH Total 55.1 ng/mL (>30)
[2024-09-08 16:15] LABS: Alanine Aminotransferase 16 U/L (0-31); Albumin Level 4.2 g/dL (3.5-5.0); Alkaline Phosphatase 61 U/L (39-117); Anion Gap 10 (12-20); Aspartate Amino Transferase 27 U/L (5-31); Bilirubin Total 0.8 mg/dL (0.0-1.0); Blood Urea Nitrogen 18 mg/dL (9-16); Calcium 9.5 mg/dL (8.4-10.2); Carbon Dioxide 30 mmol/L (22-29); Chloride 103 mmol/L (96-108); Cholesterol 156 mg/dL (<200); Estimated Glomerular Filt Rate 58; Glucose Fasting 87 mg/dL (60-99); HDL Cholesterol 75 mg/dL (>40); LDL Cholesterol Calculated 69 mg/dL (<100); Sodium 139 mmol/L (135-145); Total Protein 7.3 g/dL (6.5-8.0); Triglycerides 62 mg/dL (<150)
== END 2024-09-08 10:58 | disposition home or self-care (01) ==
LOC: HO.10HDL 10:57
PROVIDERS: Visit Provider Internal Medicine
DX: I10 Essential (primary) hypertension (principal); E78.00 Pure hypercholesterolemia, unspecified; K21.9 Gastro-esophageal reflux disease without esophagitis
CPT/HCPCS: 36415; 80053; 80061; 82306; 85025

== ENCOUNTER 2024-10-05 08:29 | Outpatient (REF) | payer MEDICARE, OTHER, SELFPAY ==
--- NOTE | ~2024-10-05 | MM_ITS ---
EXAMINATION: BONE DENSITOMETRY CLINICAL INDICATION: Postmenopausal state. COMPARISON: Baseline BD dated 04/15/2019. TECHNIQUE: Using a ItsOn DXA System (software version: 13.1) manufactured by [employer], dual-energy x-ray absorptiometry was performed of the lumbar spine and left hip. The images are of good technical quality. Summary results are attached. FINDINGS: LEFT FEMUR, NECK: Current: BMD 0.920 g/cm2, Z-score 0.5, T-score -0.9, normal. Baseline: BMD 0.967 g/cm2. LEFT FEMUR, TOTAL: Current: BMD 0.927 g/cm2, Z-score 0.5, T-score -0.6, normal, 5.5% decrease from baseline (<5% change is not significant). Baseline: BMD 0.981 g/cm2. AP SPINE L1-L4: Current: BMD 1.166 g/cm2, Z-score 1.3, T-score -0.1, normal, 3.1% increase from baseline (<5% change is not significant). Baseline: BMD 1.131 g/cm2. IDENTIFIED RISK FACTORS: Low calcium intake, parental hip fracture, menopause. HISTORY OF FRACTURE: None listed. MEDICATIONS: Vitamin D. MM/XR DEXA axial skeleton IMPRESSION: 1. DIAGNOSIS: Normal bone density based on the lowest T-score value of -0.9 in the femoral neck applying World Health Organization criteria. 2. 10-YEAR FRACTURE RISK PREDICTION, FRAX: According to the guidelines, FRAX calculation should only be performed on patients in the osteopenia bone density category. Therefore, FRAX was not performed on this patient. 3. Treatment Recommendations: NOF guidelines recommend consideration for treatment in postmenopausal women and men age 50 and older presenting with the following: -A hip or vertebral (clinical or morphometric) fracture. -T-score less than or equal to -2.5 at the femoral neck or spine after appropriate evaluation to exclude secondary causes. -Low bone mass at the hip or spine and a 10-year fracture probability by FRAX of greater than or equal to 3% for hip fracture or greater than or equal to 20% for major osteoporotic fracture based on the [place] adapted WHO algorithm. 4. Other Recommendations: All treatment decisions require clinical judgment and consideration of individual patient factors, including patient preferences, comorbidities, previous drug use, risk factors not captured in the FRAX model (e.g. frailty, falls, vitamin D deficiency, increased bone turnover, interval significant decline in bone density) and possible under or overestimation of fracture risk by FRAX. FUTURE SCAN RECOMMENDATION: People with diagnosed cases of osteoporosis or at high risk for fracture should have regular bone mineral density tests. For patients eligible for Medicare, routine testing is allowed once every 2 years. The testing frequency can be increased to one year for patients who have rapidly progressing disease, those who are receiving or discontinuing medical therapy to restore bone mass, or have additional risk factors. Electronically signed by: Tawanna Em MD 10/05/2024 02:32 PM [facility]
== END 2024-10-05 08:30 | disposition home or self-care (01) ==
LOC: HO.MAMMO 08:29
PROVIDERS: PCP Internal Medicine; Visit Provider Internal Medicine
DX: Z13.820 Encounter for screening for osteoporosis (principal); Z78.0 Asymptomatic menopausal state
CPT/HCPCS: 77080

== ENCOUNTER 2025-01-23 23:46 | Emergency (ER) | payer MEDICARE, OTHER, SELFPAY ==
--- NOTE | ~2025-01-23 | CT_ITS ---
CLINICAL HISTORY: acute headache CT head without contrast Comparison: Head CT from 06/02/2023 Findings: No acute intracranial hemorrhage. No midline shift or hydrocephalus. 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 No large arterial territorial infarction by CT. Mild mucosal thickening of the imaged paranasal sinuses. Trace left mastoid effusion. Comminuted bilateral nasal bone fractures are old. No acute skull fracture. IMPRESSION: 1. No acute intracranial abnormality by CT. 2. No significant change when compared to head CT from 06/02/2023. This document has been electronically signed by: Cj Devine MD on 01/24/2025 01:08:03
[2025-01-23 23:55] VITALS: BP 162/70; PULSE 68; RESP 14; TEMP 36.3; O2SAT 96; BMI 25.5
[2025-01-24 00:13] LABS: MANUAL DIFF FLAG NO
[2025-01-24 00:18] LABS: Basophils Percent Auto 0.5 % (0-2); Eosinophils Absolute Auto 0.1 X10*3/uL (0.0-0.4); Eosinophils Percent Auto 1.3 % (0-4); Hematocrit 44.4 % (37.0-47.0); Imm Gran Abs Auto 0.03 X10*3/uL (0.00-0.03); Imm Gran Pct Auto 0.3 % (0.0-0.4); Lymphocytes Absolute Auto 2.5 X10*3/uL (1.2-4.9); Lymphocytes Percent Auto 28.2 % (20-40); Mean Corpuscular HGB Conc 33.8 g/dl (31.0-35.0); Mean Corpuscular Hemoglobin 30.8 pg (27.0-33.0); Mean Corpuscular Volume 91.2 fL (80.0-98.0); Mean Platelet Volume 9.6 fL (9.4-12.3); Monocytes Absolute Auto 0.8 X10*3/uL (0.1-1.2); Monocytes Percent Auto 9.2 % (2-11); Neutrophils Absolute Auto 5.3 x10*3/uL (2.0-8.3); Neutrophils Percent Auto 60.5 % (45-73); Platelet Count 203 X10*3/uL (160-400); Red Blood Count 4.87 X10*6/uL (4.20-5.50); Red Cell Distribution Width 12.8 % (11.0-16.0); White Blood Count 8.8 X10*3/uL (4.8-10.8)
--- NOTE | 2025-01-24 00:36 | PC.NURSE ---
Pt is a pleasant 69 y/o female who presents to the ED from home for evaluation of a headache on the left side with pain behind left eye and visual disturbance. Pt reports visual field on left side is blurry. Denies nausea/vomiting. Denies sensitivity to light and noise. Denies dizziness. Left pupil is larger compared to the right. No trauma. Facial features are symmetrical, body movement are symmetrical. Tongue movement is symmetrical. History is significant for HTN. Onset of symptoms tonight at 2100 hours. No similar episodes in the past.
[2025-01-24 00:45] LABS: Alanine Aminotransferase 14 U/L (0-31); Albumin Level 4.2 g/dL (3.5-5.0); Alkaline Phosphatase 59 U/L (39-117); Anion Gap 16 (12-20); Aspartate Amino Transferase 27 U/L (5-31); Bilirubin Total 0.6 mg/dL (0.0-1.0); Blood Urea Nitrogen 23 mg/dL (9-16); Calcium 9.6 mg/dL (8.4-10.2); Carbon Dioxide 24 mmol/L (22-29); Chloride 105 mmol/L (96-108); Creatinine Clr Calc Pharmacy 55.8; Estimated Glomerular Filt Rate 55; Glucose Random 102 mg/dL (60-115); Potassium 3.5 mmol/L (3.3-5.1); Sodium 141 mmol/L (135-145); Total Protein 7.3 g/dL (6.5-8.0)
[2025-01-24] MEDS: Tetracaine HCl 0.5% Oph Sol 5 ML DROPS 3 DROP EYE-LEFT (01:06)
--- NOTE | 2025-01-24 01:53 | ED_ITS ---
HPI - General Adult General Chief complaint: Head Injury Stated complaint: headache behind eyes, blurry right eye Time Seen by Provider: 01/24/25 00:23 Source: patient Limitations: no limitations History of Present Illness ED Provider: Heather Scanlon PA-C HPI narrative: 69-year-old female with a history of hypertension hyperlipidemia presents with acute onset left blurred vision. Patient states she developed a retro-orbital headache on the left, then developed blurred vision. She noted the pupil was larger in the left eye versus the right. Patient took Tylenol, her headache has improved. The blurred vision is still present. Patient also states that the eye feels irritated but not exquisitely painful. No redness of the sclera. No nausea vomiting. Related Data Home Medications ?Medication ?Instructions ?Recorded ?Confirmed aspirin 81 mg tablet,delayed 81 mg PO DAILY 03/13/21 07/05/24 release atenolol 25 mg tablet 25 mg PO BEDTIME 03/13/21 07/05/24 cholecalciferol (vitamin D3) 25 25 mcg PO DAILY 03/13/21 07/05/24 mcg (1,000 unit) capsule hydrochlorothiazide 12.5 mg tablet 12.5 mg PO DAILY 09/16/21 07/05/24 rosuvastatin 20 mg tablet (Crestor) 10 mg PO DAILY 07/05/24 07/05/24 Previous Rx's ?Medication ?Instructions ?Recorded spironolactone 25 mg tablet 25 mg PO DAILY #90 tabs 05/24/24 Allergies Allergy/AdvReac Type Severity Reaction Status Date / Time No Known Allergies Allergy Verified 01/24/25 00:02 Review of Systems 2 Review of Systems: Yes all other systems are reviewed and are negative Constitutional: Constitutional: Denies fatigue, Denies fever(s) and Reports headache(s) Eyes: Eyes: Reports blurry vision and Reports eye pain ENT: Denies dizziness and Reports headache(s) Cardiovascular: Cardiovascular: Denies chest pain and Denies dyspnea Respiratory: Respiratory: Denies dyspnea Gastrointestinal: Gastrointestinal: Denies abdominal pain, Denies nausea and Denies vomiting Neurologic: Denies dizziness and Reports headache(s) Endocrine: Endocrine: Denies fatigue PMF Past Medical History Attestation statement: The following information was validated with the patient. Medical History Acute electrocardiogram changes History of echocardiogram History of Holter monitoring Atrial septal aneurysm Orthostatic hypotension Heart palpitations Essential hypertension Surgical History No pertinent past surgical history Family History Family History Father HTN (hypertension) Aortic dissection Mother HTN (hypertension) Social History Social History Alcohol intake: current Alcohol intake frequency: a few times a month Patient Tobacco Use Status: Never used Tobacco Advance Directives: No Advance Directives Information Provided: Yes Do you have a plan to hurt others: No Plan service: No Current occupational status: employed Physical Exam ED Vital Signs: Vital Signs - 24 hr 01/23/25 23:55 01/24/25 02:26 Temperature 97.4 F 97.6 F Pulse Rate 68 60 Respiratory Rate 14 16 Blood Pressure 162/70 H 148/71 H Pulse Oximetry 96 98 Oxygen Delivery Method Room Air Room Air BMI result Body Mass Index 25.5 Const Other: Alert Orientation/consciousness: patient oriented x3 Eyes Other: Visual acuity 20/25 OD, unable to perform OS. the sclera is white, no injection of left eye. On slit lamp exam, the pupil shape is irregular, it is also slightly larger than the right. On funduscopic exam, the fundus appears swollen Resp Effort & Inspection: normal respiratory effort Cardio Other: Normal peripheral perfusion Skin Other: Warm dry no rash Neuro General: patient oriented x3, gait normal, no focal motor deficits and CN's II- XI intact bilaterally Psych Other: Cooperative Course Consultations Consultation #1: [facility].....speaking with Dr. Howe ...he recommends brimonidine 0.2% drops 1 drops Q 5 minutes x3 cycles, timolol 0.5% 1 drop Q 5 minutes x3 cycles, dorzolamide 2% 1 drop Q 5 minutes x3 cycles. And a seton: I had 500 mg IV push, can repeat twice up to 1 g. He also states he is happy to have the patient transferred to their facility if need be. Time: 01:53 Consultation #2: Dr. Hulseberg reported findings , he is on his way into his office, we will escort the patient over to his office for further assessment. He asked for repeat intra-ocular pressures, the 2nd pressure was 62.9 Time: 02:38 Medications Administered Discontinued Medications Generic Name Dose Route Start Last Admin Trade Name Alis PRN Reason Stop Dose Admin Acetazolamide 500 mg 01/24/25 01:37 01/24/25 02:09 Acetazolamide Sodium 500 Mg Vial IVPUSH 01/24/25 01:38 500 mg ONCE ONE Administration Apraclonidine HCl 1 drop 01/24/25 02:28 01/24/25 02:35 Apraclonidine Hcl 1 % Oph Monica 1 Each [place]rette EYE-LEFT 01/24/25 02:29 1 drop ONCE ONE Administration Apraclonidine HCl 1 drop 01/24/25 02:44 01/24/25 02:47 Apraclonidine Hcl 1 % Oph Monica 1 Each Droperette EYE-LEFT 01/24/25 02:45 1 drop ONCE ONE Administration Tetracaine HCl 3 drop 01/24/25 00:23 01/24/25 01:06 Tetracaine Hcl 0.5% Oph Monica 5 Ml Drops EYE-LEFT 01/24/25 00:24 3 drop ONCE ONE Administration Timolol Maleate 1 drop 01/24/25 01:38 01/24/25 02:22 Timolol Maleate 0.5 % Oph Monica 5 Ml Drbtl EYE-LEFT 01/24/25 01:39 1 drop ONCE ONE Administration Timolol Maleate 1 drop 01/24/25 02:44 01/24/25 02:44 Timolol Maleate 0.5 % Oph Monica 5 Ml Drbtl EYE-LEFT 01/24/25 02:45 1 drop ONCE ONE Administration Medical Decision Making Medical Decision Making MDM Narrative: 69-year-old female with a history of hypertension hyperlipidemia presents with acute onset left blurred vision. Patient states she developed a retro-orbital headache on the left, then developed blurred vision. She noted the pupil was larger in the left eye versus the right. Patient took Tylenol, her headache has improved. The blurred vision is still present. Patient also states that the eye feels irritated but not exquisitely painful. No redness of the sclera. No nausea vomiting. Problem: Hypertension History: Per patient I have considered the following differential diagnoses: Glaucoma, retinal detachment, vitreal hemorrhage, intracranial hemorrhage, corneal abrasion Plan: Patient here with the acute onset headache and mild eye pain. She has new onset blurred vision with an enlarged pupil. We are most concerned for acute angle closure glaucoma. We will be reaching out to ophthalmology. Also obtaining a CT scan of the brain, less likely to be intracranial hemorrhage given the patient's headache was resolved with Tylenol, she is not actively vomiting, she is neurologically intact. This is not retinal detachment or vitreal hemorrhage, both conditions have no associated pain. This is not a corneal abrasion there was no trauma to the eye. We will screen basic labs in the event the patient requires admission I have independently reviewed the following tests: Labs: No leukocytosis, not anemic, no electrolyte abnormality noted CT brain:IMPRESSION: 1. No acute intracranial abnormality by CT. 2. No significant change when compared to head CT from 06/02/2023. Lab Data 01/24/25 00:09 01/24/25 00:09 Labs: Lab Results 01/24/25 01/24/25 Range/Units 00:09 01:54 WBC 8.8 (4.8-10.8) X10*3/uL RBC 4.87 (4.20-5.50) X10*6/uL Hgb 15.0 (12.0-16.0) g/dl Hct 44.4 (37.0-47.0) % MCV 91.2 (80.0-98.0) fL MCH 30.8 (27.0-33.0) pg MCHC 33.8 (31.0-35.0) g/dl RDW 12.8 (11.0-16.0) % Plt Count 203 (160-400) X10*3/uL MPV 9.6 (9.4-12.3) fL Immature Gran % (Auto) 0.3 (0.0-0.4) % Neut % (Auto) 60.5 (45-73) % Lymph % (Auto) 28.2 (20-40) % [place] % (Auto) 9.2 (2-11) % Eos % (Auto) 1.3 (0-4) % Baso % (Auto) 0.5 (0-2) % Lymph # (Auto) 2.5 (1.2-4.9) X10*3/uL [place] # (Auto) 0.8 (0.1-1.2) X10*3/uL Eos # (Auto) 0.1 (0.0-0.4) X10*3/uL Baso # (Auto) 0.0 (0.0-0.2) X10*3/uL Abs Immat Gran (auto) 0.03 (0.00-0.03) X10*3/uL Absolute Neuts (auto) 5.3 (2.0-8.3) x10*3/uL Absolute Nucleated RBC 0.000 (0.0-0.012) X10*3/uL Nucleated RBC % (auto) 0.0 (0.0-0.2) /100WBC ESR 7 (0-20) MM/HR Sodium 141 (135-145) mmol/L Potassium 3.5 (3.3-5.1) mmol/L Chloride 105 (96-108) mmol/L Carbon Dioxide 24 (22-29) mmol/L Anion Gap 16 (12-20) BUN 23 H (9-16) mg/dL Creatinine 1.00 (0.5-1.4) mg/dL Estim Creat Clear Calc 55.8 Estimated GFR 55 Random Glucose 102 (60-115) mg/dL Calcium 9.6 (8.4-10.2) mg/dL Total Bilirubin 0.6 (0.0-1.0) mg/dL AST 27 (5-31) U/L ALT 14 (0-31) U/L Alkaline Phosphatase 59 (39-117) U/L Total Protein 7.3 (6.5-8.0) g/dL Albumin 4.2 (3.5-5.0) g/dL Discharge Plan Discharge Clinical Impression: Blurred vision, left eye, Increased intraocular pressure Patient Disposition: Xfer Other Additional Instructions: Go directly to Dr. Alvarez's office Prescriptions: No Action spironolactone 25 mg tablet 25 mg PO DAILY Qty: 90 3RF atenolol 25 mg tablet 25 mg PO BEDTIME aspirin 81 mg tablet,delayed release (DR/EC) 81 mg PO DAILY cholecalciferol (vitamin D3) 25 mcg (1,000 unit) capsule 25 mcg PO DAILY hydrochlorothiazide 12.5 mg tablet 12.5 mg PO DAILY rosuvastatin [Crestor] 20 mg tablet 10 mg PO DAILY Print Language: Nepalese
[2025-01-24] MEDS: acetaZOLAMIDE sodium 500 MG VIAL IVPUSH (02:09)
[2025-01-24] MEDS: timoloL maleate 0.5 % Oph Sol 5 ML DRBTL 1 DROP EYE-LEFT ×3 (02:22→02:58)
[2025-01-24 02:26] VITALS: BP 148/71; PULSE 60; RESP 16; TEMP 36.4; O2SAT 98
[2025-01-24] MEDS: Apraclonidine HCl 1 % Oph Sol 1 EACH DROPERETTE 1 DROP EYE-LEFT ×3 (02:35→03:00)
[2025-01-24 02:44] LABS: Erythrocyte Sedimentation Rate 7 MM/HR (0-20)
[2025-01-24] MEDS: Dorzolamide HCl 2 % Ophth Sol 10 ML DRPBTL 1 DROP EYE-LEFT (03:07)
[2025-01-24 03:25] VITALS: BP 148/71; PULSE 60; RESP 16; TEMP 36.4; O2SAT 98
== END 2025-01-24 03:28 | disposition other institution (70) ==
PROVIDERS: Emergency Provider Emergency Medicine; PCP Internal Medicine
DX: H53.8 Other visual disturbances (principal); H40.052 Ocular hypertension, left eye; I10 Essential (primary) hypertension; E78.5 Hyperlipidemia, unspecified; Z79.82 Long term (current) use of aspirin; Z79.02 Long term (current) use of antithrombotics/antiplatelets; Z79.899 Other long term (current) drug therapy
CPT/HCPCS: 36415; 70450; 80053; 85025; 85652; 99283; J1120

== ENCOUNTER → 2025-01-24 00:17 | Outpatient (BNV) | payer MEDICARE, OTHER, SELFPAY | PROVIDERS: Emergency Provider Emergency Medicine; PCP Internal Medicine; Visit Provider Radiology Neuroradiology | DX: R51.9 Headache, unspecified (principal) | CPT/HCPCS: 70450 ==

== ENCOUNTER 2025-01-24 03:41 | Emergency (ER) | payer MEDICARE, OTHER, SELFPAY ==
--- OUTSIDE RECORDS SUMMARY | 2025-01-24 03:48 | XMS_ITS | Patient Health Record ---
Author Organization [facility] Address [address] [place] [address] Care Team Providers Care Milled Lumber Grader Name Role Phone David Grider MD Primary Care Provider Andrew Rasheed Unavailable [phone] Allergies No Known Allergies Reason For Referral No Information Medications Medication SIG (Take, Route, Frequency, Duration) Notes Start Date End Date Status Vitamin D 1000 UNIT 1 tablet Orally Once a day Active Rosuvastatin Calcium 10 MG Oral for 90 Active Aspir-Low 81 MG 1 tablet Orally Once a day for 30 day(s) Active hydroCHLOROthiazide 12.5 MG Oral for 90 Active Spironolactone 25 MG Oral for 90 Active Atenolol 25 MG 1 tablet Orally Once a day Active Immunizations Vaccine Route Administration Date Status Comme nts Influenza Unknown 07/05/2019 Refused Social History Alcohol Screen Question Answer Notes Did you have a drink contain ing alcohol in the past year? Yes How often did you have a dri nk containing alcohol in the past year? Monthly or less (1 point) How many drinks did you have on a typical day when you were drinking in the past year? 1 or 2 drinks (0 point) How often did you have 6 or more drinks on one occasion in the past year? Never (0 point) Points 1 Interpretation Negative Section Notes: Nonsmoker; no sig. alcohol Nonsmoker; no sig. 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 Problems Problem Type SNOMED Code ICD Code Onset Dates Problem Status W/U Status Risk Notes Problem 416642488 Encounter for screening for malignant neoplasm of colon (Z12.11) Active confirmed Problem 903306862 History of adenomatous polyp of colon (Z86.010) Active confirmed Problem 195453238358258 Preprocedural examination (Z01.818) Active confirmed Problem 358897457 Long-term use of aspirin therapy (Z79.82) Active confirmed Problem Personal history of adenomatous and serrated colon polyps (Z86.0101) Active confirmed Vital Signs Blood pressure diastolic 00 mm Hg 11/08/2024 Height 66.5 in 11/08/2024 Blood pressure systolic 00 mm Hg 11/08/2024 Weight 159 lbs 11/08/2024 BMI 25.28 kg/m2 11/08/2024 Encounters Encounter Location Date Provider Diagnosis [facility] [address] [place] [address] 11/08/2024 Andrew Madera History of adenomato us polyp of colon Z86.010 ; Long-term use of aspirin therapy Z79.82 and Encounter for screening for malignant neoplasm of colon Z12.11 Assessments Encounter Date Diagnosis (ICD Code) Assessment Notes Treatment Notes Treatment Clinical Notes Section Notes 11/08/2024 History of adenomatous polyp of colon (ICD-10 - Z86.010) Overall, Idalmis appears quite well. Given her age, excellent clinical appearance, her family history of colorectal cancer, her personal history of tubular adenomas of the colon, and her last colonoscopy being over 5 years ago, I did recommend a followup colonoscopy for further screening purposes. We did review the rationale for that in regard to colon cancer prevention. Full consent was obtained for this, including risks of bleeding and perforation. The procedure will be done with monitored anesthesia care. She was given the below instructions regarding adjustment of her medications for the procedure. Idalmis was very comfortable with this plan. Thank you again for allowing me to participate in Idalmis's care. I shall continue to keep you advised of her progress. 11/08/2024 Long-term use of aspirin therapy (ICD-10 - Z79.82) Overall, Idalmis appears quite well. Given her age, excellent clinical appearance, her family history of colorectal cancer, her personal history of tubular adenomas of the colon, and her last colonoscopy being over 5 years ago, I did recommend a followup colonoscopy for further screening purposes. We did review the rationale for that in regard to colon cancer prevention. Full consent was obtained for this, including risks of bleeding and perforation. The procedure will be done with monitored anesthesia care. She was given the below instructions regarding adjustment of her medications for the procedure. Idalmis was very comfortable with this plan. Thank you again for allowing me to participate in Idalmis's care. I shall continue to keep you advised of her progress. 11/08/2024 Encounter for screening for malignant neoplasm of colon (ICD-10 - Z12.11) Do not use the Spironolactone or Hydrochlorothiaide the day before or on the day of the procedure. Stop aspirin for 1 week before the colonoscopy. Overall, Idalmis appears quite well. Given her age, excellent clinical appearance, her family history of colorectal cancer, her personal history of tubular adenomas of the colon, and her last colonoscopy being over 5 years ago, I did recommend a followup colonoscopy for further screening purposes. We did review the rationale for that in regard to colon cancer prevention. Full consent was obtained for this, including risks of bleeding and perforation. The procedure will be done with monitored anesthesia care. She was given the below instructions regarding adjustment of her medications for the procedure. Idalmis was very comfortable with this plan. Thank you again for allowing me to participate in Idalmis's care. I shall continue to keep you advised of her progress. Plan Of Treatment Future Test Test Name Order Date COLONOSCOPY 02/15/2013 COLONOSCOPY 07/05/2019 COLONOSCOPY 11/08/2024 Next Appt Details Provider Name:Andrew Madera , 02/08/2025 09:30:00 AM, [address] [place] [address], [id number], Insurance Providers Payer Name Payer Address Payer Phone Subscriber Number Group Number Insured Name Patient Relationship to Insured Coverage Start Date Coverage End Date MEDICARE OF [place] [address] [facility] [place] [id number] IDALMIS GARNER Self - patient is the insured [facility] [address] [place] [address] [id number] IDALMIS GARNER Self - patient is the insured Medical (General) History Medical History History ICD Code Hypertension Denies SC,DM,CVA,Lung disease,renal dise ase Screening Colonoscopy in 03/2013 with 2 s mall tubular adenomas Hyperlipidemia Negative followup screening colonoscopy in August of 2019 Surgical History Surgery Date(Month/Year) Skin cysts removal X 2
[2025-01-24 03:57] VITALS: PULSE 58; RESP 16; TEMP 36.4; O2SAT 97; BMI 25.8
--- NOTE | 2025-01-24 04:04 | ED_ITS ---
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 Alvarez to the OR for laser iridectomy Related Data Home Medications ?Medication ?Instructions ?Recorded ?Confirmed aspirin 81 mg tablet,delayed 81 mg PO DAILY 03/13/21 07/05/24 release atenolol 25 mg tablet 25 mg PO BEDTIME 03/13/21 07/05/24 cholecalciferol (vitamin D3) 25 25 mcg PO DAILY 03/13/21 07/05/24 mcg (1,000 unit) capsule hydrochlorothiazide 12.5 mg tablet 12.5 mg PO DAILY 09/16/21 07/05/24 rosuvastatin 20 mg tablet (Crestor) 10 mg PO DAILY 07/05/24 07/05/24 Previous Rx's ?Medication ?Instructions ?Recorded spironolactone 25 mg tablet 25 mg PO DAILY #90 tabs 05/24/24 Allergies Allergy/AdvReac Type Severity Reaction Status Date / Time No Known Allergies Allergy Verified 01/24/25 04:01 Review of Systems Review of Systems: Yes all other systems are reviewed and are negative [facility] Past Medical History Medical History Acute electrocardiogram changes History of echocardiogram History of Holter monitoring Atrial septal aneurysm Orthostatic hypotension Heart palpitations Essential hypertension Surgical History No pertinent past surgical history Family History Family History Father HTN (hypertension) Aortic dissection Mother HTN (hypertension) Social History Social History Alcohol intake: current Alcohol intake frequency: a few times a month Patient Tobacco Use Status: Never used Tobacco Advance Directives: No Advance Directives Information Provided: Yes Do you have a plan to hurt others: No Plan service: No Current occupational status: employed Physical Exam Vital Signs: Vital Signs: Last Vital Signs Temp 97.6 F 01/24/25 03:57 Pulse 58 01/24/25 03:57 Resp 16 01/24/25 03:57 Pulse Ox 97 01/24/25 03:57 O2 Del Method Room Air 01/24/25 03:57 BMI result Body Mass Index 25.8 Appearance: Alert. Oriented X3. No acute distress. Eyes: normal pupil right eye left mid dilated pupil sluggish to react, fundus with significant papilledema Patient's vision on left eye with hand movements slowly improved after eyedrops IOP in the left eye 68 right eye in 20 ENT: Pharynx normal. Oral Mucosa moist Neck: Normal inspection. Neck supple. CVS: Normal heart rate and rhythm. Pulses normal. Respiratory: No respiratory distress. Equal air entry bilateral, no wheezing/rales/rhonchi Abdomen: Soft and nontender. Bowel sounds are present, no mass palpable, no CVA tenderness Skin: Skin warm and dry. Normal skin color. Normal skin turgor. Extremities: No lower extremity edema. No calf tenderness Neuro: Oriented X 3. No motor deficit. No sensory deficit.No cerebellar signs , cranial nerves II-XII intact Medical Decision Making Medical Decision Making MDM Narrative: patient was seen by other provider prior to this plan: patient to go to the OR for laser iridotomy 420 patient came back from the OR after iridotomy post procedure pressure was 24 patient's vision is much better patient is to take prednisolone eyedrops 4 times a day as advised by Dr. Alvarez follow up as outpatient Discharge Plan Discharge Clinical Impression: Acute glaucoma of left eye Patient Disposition: Home, Self-Care Instructions: Glaucoma (ED) Additional Instructions: use prednisone eyedrops in left eye as prescribed by Dr. Alvarez 4 times a day follow with Dr. Farley per his instruction Prescriptions: No Action spironolactone 25 mg tablet 25 mg PO DAILY Qty: 90 3RF atenolol 25 mg tablet 25 mg PO BEDTIME aspirin 81 mg tablet,delayed release (DR/EC) 81 mg PO DAILY cholecalciferol (vitamin D3) 25 mcg (1,000 unit) capsule 25 mcg PO DAILY hydrochlorothiazide 12.5 mg tablet 12.5 mg PO DAILY rosuvastatin [Crestor] 20 mg tablet 10 mg PO DAILY Referrals: Brenton Alvarez [Physician] - Print Language: Hungarian
[2025-01-24 05:04] VITALS: BP 132/68; PULSE 58; RESP 16; TEMP 36.4; O2SAT 97
== END 2025-01-24 05:10 | disposition home or self-care (01) ==
LOC: HO.ED 04:07 → HO.SSS 04:35 → HO.ED 04:48
PROVIDERS: Ophthalmology; Emergency Provider Internal Medicine; PCP Internal Medicine
PROC: (CPT 66761; principal; 2025-01-24 04:00)
DX: H40.20X0 Unspecified primary angle-closure glaucoma, stage unspecified (principal); H54.62 Unqualified visual loss, left eye, normal vision right eye; H57.12 Ocular pain, left eye; I10 Essential (primary) hypertension; Z79.82 Long term (current) use of aspirin; Z79.899 Other long term (current) drug therapy; Z79.02 Long term (current) use of antithrombotics/antiplatelets
CPT/HCPCS: 66761; 36415; 70450; 80053; 85025; 85652; 99282; 99283; 99284; 99285; J1120

== ENCOUNTER 2025-01-30 | Outpatient (REF) | payer MEDICARE, OTHER, SELFPAY ==
[2025-01-30 14:14] VITALS: BP 144/77; PULSE 78; RESP 16; O2SAT 99
[2025-01-30 14:24] VITALS: BMI 24.9
--- OUTSIDE RECORDS SUMMARY | 2025-01-31 12:54 | XMS_ITS ---
Author Organization [facility] Address [address] [place] [address] Care Team Providers Care Computing Architect Name Role Phone David Grider MD Primary Care Provider Andrew Rasheed Unavailable [phone] Allergies No Known Allergies REASON FOR VISIT [...] Nonsmoker; no sig. 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 Problems Problem Type SNOMED Code ICD Code Onset Dates Problem Status W/U Status Risk Notes Problem Personal history of adenomatous and serrated colon polyps (Z86.0101) Active confirmed Vital Signs Blood pressure systolic 00 mm Hg 11/08/19 25 Blood pressure diastolic 00 mm Hg 025 Height 66.5 in 11/08/2024 Weight 159 lbs 11/08/2024 BMI 25.28 kg/m2 11/08/2024 Encounters Encounter Location Date Provider Diagnosis [facility] [address] [place] [address] 11/08/2024 Andrew Madera History of adenomato us [...] Provider Name:Andrew Madera , 02/08/2025 09:30:00 AM, [address] [place] [address], [id number], Progress Notes * IDALMIS GARNERDOB:1955 ( 69 yo F)Acc No.[id number]:11/08/2024 Progress Notes Patient:?IDALMIS GARNER Provider:?Andrew Madera MD :1955???Age:69 Y???Sex:Female D ate:11/08/2024 Address:[address] [place], [place] [phone] Pcp:David Grider MD Subjective: * Chief Complaints: [...] ???Nonsmoker; no sig. 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 * Medications:?TakingAtenolol 25 MG Tablet 1 tablet [...] Procedure Codes:?3017F COLOR ECTAL CA SCREEN DOC [id number] TOBACCO [id number] BP SCR NOT PRFRM REC REASON NOS [...] MD Date:? 025 Generated for Vaibhav huizar/Deni/eTransmitting on:?01/31/2025 12:54 PM EDT History and Physical Notes * [...]
== END 2025-01-30 00:01 | disposition home or self-care (01) ==
LOC: HO.MS
PROVIDERS: Visit Provider Ophthalmology
PROC: (CPT 66761; principal; 2025-01-30 16:00)
DX: H40.211 Acute angle-closure glaucoma, right eye (principal)
CPT/HCPCS: 66761

== ENCOUNTER 2025-02-08 08:16 | Day surgery (SDC) | payer MEDICARE, OTHER, SELFPAY ==
--- OUTSIDE RECORDS SUMMARY | 2025-01-24 14:13 | XMS_ITS ---
Author Organization [facility] Address [address] [place] [address] Care Team Providers Care Optometrist Owner Name Role Phone David Grider MD Primary Care Provider Andrew Rasheed Unavailable [phone] Allergies No Known Allergies REASON FOR VISIT colon screening Medications Medication SIG (Take, Route, Frequency, Duration) Notes Start Date End Date Status Vitamin D 1000 UNIT 1 tablet Orally Once a day Active Rosuvastatin Calcium 10 MG Oral for 90 Active Aspir-Low 81 MG 1 tablet Orally Once a day for 30 day(s) Active Atenolol 25 MG 1 tablet Orally Once a day Active hydroCHLOROthiazide 12.5 MG Oral for 90 Active Spironolactone 25 MG Oral for 90 Active Social History Alcohol Screen Question Answer Notes [...] Negative Section Notes: Nonsmoker; no sig. 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 Problems Problem Type SNOMED Code ICD Code Onset Dates Problem Status W/U Status Risk Notes Problem Personal history of adenomatous and serrated colon polyps (Z86.0101) Active confirmed Vital Signs Blood pressure systolic 00 mm Hg 11/08/19 25 Blood pressure diastolic 00 mm Hg 025 Height 66.5 in 11/08/2024 Weight 159 lbs 11/08/2024 BMI 25.28 kg/m2 11/08/2024 Encounters Encounter Location Date Provider Diagnosis [facility] [address] [place] [address] 11/08/2024 Andrew Madera History of adenomato us [...] advised of her progress. Plan Of Treatment Treatment Notes Assessment Notes Encounter for screening for malignant neoplasm of colon Do not use the Spironolactone or Hydrochlorothiaide the day before or on the day of the procedure. Stop aspirin for 1 week before the colonoscopy. Future Test Test Name Order Date COLONOSCOPY 11/08/2024 Next Appt Details Follow Up: prn, Reason: Provider Name:Andrew Madera , 02/08/2025 09:30:00 AM, [address] [place] [address], [id number], Progress Notes * IDALMIS GARNERDOB:1955 ( 69 yo F)Acc No.[id number]:11/08/2024 Progress Notes Patient:?IDALMIS GARNER Provider:?Andrew Madera MD :1955???Age:69 Y???Sex:Female D ate:11/08/2024 Address:[address] [place], [place] [address] Pcp:David Grider MD Subjective: * Chief Complaints: * ???Colon screening * HPI: ???incontinence:? I saw Idalmis in the office today for evaluation of her personal history of tubular adenomas of the colon and need for colorectal cancer screening. ?I last saw Idalmis in August of 2019, at which time she underwent a followup screening colonoscopy which was negative. She did have tubular adenomas removed in 2012. She presently feels were very well. She enjoys a good appetite, without any significant heartburn or dysphagia. She denies any abdominal pain, jaundice, nor unintentional weight loss. She reports that her bowel movements have been regular and without any signs of bleeding. She does have a family history of colon cancer in her mother and maternal grandmother, although they were both approximately in their 80s at the time of diagnosis. * ROS:?General/Constitutional:?Change in appetite?denies.?Chills?denies.?Fatigue?denies.?Ophthalmologic:?Patient denies? Negative..?ENT:?Patient denies?Negative..?Respiratory:?Patient denies?No coughing/hemoptysis..?Cardiovascular:?Patient denies? No chest pain/orthopnea..?Gastrointestinal:?Comments?See HPI for details.?Genitourinary:?Patient denies? No dysuria/hematuria..?Musculoskeletal:?Patient denies? No specific arthralgias/myalgias..?Skin:?Patient denies?No rash/pruritus..?Neurologic:?Patient denies? No headaches/seizures..?Psychiatric:?Patient denies?Negative..? * Medical History:? * Surgical History:? Skin cysts removal X 2 * Hospitalization/Major Diagno stic Procedure:?No Hospitalization History. * Family History:?Father: dece ased.?Mother: , In her 80's, diagnosed with Colon cancer.?Maternal Grand Mother: , diagnosed with Colon cancer.?Siblings: She has a sister with Crohn's Disease..? There is a history of Crohn's Disease in a sister. Mom had colon cancer at age 81. Her maternal GM had colon ca. in her 80's as well. * Social History:?Tobacco Use:?Tobacco Use/Smoking?Are you a: former smoker , How long has it been since you last smoked?: > 10 years.?Drugs/Alcohol:?Alcohol Screen?Did you have a drink containing alcohol in the past year??Yes,?How often did you have a drink containing alcohol in the past year??Monthly or less (1 point), How many drinks did you have on a typical day when you were drinking in the past year??1 or 2 drinks (0 point),?How often did you have 6 or more drinks on one occasion in the past year??Never (0 point),?Points?1,?Interpretation?Negative.?Miscellaneous:?Marital status: . Occupation: retired. ???Nonsmoker; no sig. 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 * Medications:?TakingAtenolol 25 MG Tablet 1 tablet Orally Once a dayVitamin D 1000 UNIT Tablet 1 tablet Orally Once a dayAspir-Low 81 MG Tablet Delayed Release 1 tablet Orally Once a dayRosuvastatin Calcium 10 MG Tablet Oral Spironolactone 25 MG Tablet Oral hydroCHLOROthiazide 12.5 MG Tablet Oral Taking Atenolol 25 MG Tablet 1 tablet Orally Once a dayTaking Vitamin D 1000 UNIT Tablet 1 tablet Orally Once a dayTaking Aspir-Low 81 MG Tablet Delayed Release 1 tablet Orally Once a dayTaking Rosuvastatin Calcium 10 MG Tablet Oral Taking Spironolactone 25 MG Tablet Oral Taking hydroCHLOROthiazide 12.5 MG Tablet Oral DiscontinuedamLODIPine Besylate 5 MG Tablet 1 tablet Orally Once a dayTriamterene-HCTZ 37.5-25 MG Capsule 1 tablet in the morning Orally Once a dayLisinopril 40 MG Tablet 1 tablet Orally Once a dayMedication List reviewed and reconciled with the patientDiscontinued amLODIPine Besylate 5 MG Tablet 1 tablet Orally Once a dayDiscontinued Triamterene-HCTZ 37.5-25 MG Capsule 1 tablet in the morning Orally Once a dayDiscontinued Lisinopril 40 MG Tablet 1 tablet Orally Once a dayMedication List reviewed and reconciled with the patient * Allergies:?N.K.D.A.yes[Aller gies Verified] Objective: * Vitals:?Wt: 159 lbs, Ht: 66. 5 in, BMI:25.28 Index, BP: 00/00 mm Hg. Assessment: * Assessment: 1.?Long-term use of aspirin therapy - Z79.82 (Primary)?2.?History of adenomatous polyp of colon - Z86.010?3.?Encounter for screening for malignant neoplasm of colon - Z12.11? Overall, Idalmis appears quite well. Given her [...] to keep you advised of her progress. Plan: * Treatment: 2.?Encounter for screening for malignant neoplasm of colon?Procedure: COLONOSCOPY (Ordered for 11/08/2024)* with MACsched for 02/08/25 9: 30 ammiralax Notes: Do not use the Spironolactone or Hydrochlorothiaide the day before or on the day of the procedure. Stop aspirin for 1 week before the colonoscopy.?? * Procedure Codes:?3017F COLOR ECTAL CA SCREEN DOC [id number] TOBACCO [id number] BP SCR NOT PRFRM REC REASON NOS * Preventive Medicine:? ??Counseling:?Care goal follow-up plan:?Above Normal BMI Follow-up?Giving encouragement to exercise,?BMI management provided?Yes.? ??Urinary Incontinence:?Urinary Incontinence?Assessment:?Absent,?Plan of care documented:?No, reason not specified.? ??Screenings:?Fall Risk Screening?Fall Risk Assessment:?No falls in the past year,?Screening:?No falls in the past year,?Assessment:?Not performed, no reason specified,?Plan of Care:?Not documented, no reason specified.? * Follow Up:?prn * * Sign off status: Completed true * Provider:?Andrew Madera MD Date:? 025 Generated for Vaibhav huizar/Deni/eTransmitting on:?01/24/2025 02:12 PM EDT History and Physical Notes * HPI (History of Present Illness) Category Sub-Category Detail Notes Category Not es incontinence I saw Idalmis in the office today for evaluation of her personal history of tubular adenomas of the colon and need for colorectal cancer screening. I last saw Idalmis in August of 2019, at which time she underwent a followup screening colonoscopy which was negative. She did have tubular adenomas removed in 2012. She presently feels were very well. She enjoys a good appetite, without any significant heartburn or dysphagia. She denies any abdominal pain, jaundice, nor unintentional weight loss. She reports that her bowel movements have been regular and without any signs of bleeding. She does have a family history of colon cancer in her mother and maternal grandmother, although they were both approximately in their 80s at the time of diagnosis.
[2025-02-06 13:58] VITALS: BMI 25.8
[2025-02-08 08:25] VITALS: BMI 24.7
[2025-02-08 08:39] VITALS: BP 110/61; PULSE 83; RESP 16; TEMP 35.7; O2SAT 98
[2025-02-08] MEDS: Lactated Ringers 1,000 ML 100 ML IVCONT (08:50)
--- NOTE | 2025-02-08 09:05 | HO.ANESPROP2 ---
FORMERLY [facility], [facility] Active Problems Active Problems: All Active Problems Increased intraocular pressure (Acute) Family history of aortic dissection (Acute) Stroke (Acute) Contusion of cervical cord (Acute) Cervical radiculopathy at C7 (Acute) Orthostatic hypotension (Acute) Past Medical History Medical History Hyperlipidemia HTN (hypertension) Acute electrocardiogram changes History of echocardiogram History of Holter monitoring Atrial septal aneurysm Orthostatic hypotension Heart palpitations Essential hypertension Family History Family History Father HTN (hypertension) Aortic dissection Mother HTN (hypertension) Surgical History Surgical History Hx of removal of cyst Hx of section H/O colonoscopy No pertinent past surgical history History of Problems with Anesthesia: No Social History Social History Are you a primary md do resident urgent care to a significant other at home: No Do you presently have visiting nurse or other home services: No Alcohol intake: current Alcohol intake frequency: a few times a month Patient Tobacco Use Status: Former Tobacco user Use of substances other than those prescribed or required for medical reasons: No Have you been hit, kicked, punched, or otherwise hurt by someone within the past year? If so, by whom?: No Are you DNR?: No Advance Directives: No Advance Directives Information Provided: Yes Patient : No service: No Current occupational status: employed Meds Allergies Allergy/AdvReac Type Severity Reaction Status Date / Time No Known Allergies Allergy Verified 01/24/25 04:01 Active Medications: Current Medications Lactated Ringer's (Lr) 1,000 mls @ 100 mls/hr IVCONT .Q10H DOMINGO Last Admin: 02/08/25 08:50 Dose: 100 mls/hr Sodium Biphosphate/Sodium Phosphate (Sodium Phosphate,Grayson-Dibasic 133 Ml Enema) 133 ml IA ONCE PRN PRN Reason: Poor Colonoscopy Prep Results Home Medications ?Medication ?Instructions ?Recorded ?Confirmed ?Last Taken ?Type aspirin 81 mg tablet,delayed 81 mg PO DAILY 03/13/21 02/08/25 01/30/25 History release atenolol 25 mg tablet 25 mg PO BEDTIME 03/13/21 02/06/2506/02/21 History cholecalciferol (vitamin D3) 25 25 mcg PO DAILY 03/13/21 02/06/25 06/03/21 History mcg (1,000 unit) capsule hydrochlorothiazide 12.5 mg tablet 12.5 mg PO DAILY 09/16/21 02/06/25 Unknown History rosuvastatin 20 mg tablet (Crestor) 10 mg PO DAILY 07/05/24 02/06/25 Unknown History Exam Height,Weight and Vital Signs: Height 5 ft 6 in Weight 69.5 kg Last Vital Signs Temp 96.2 F L 02/08/25 08:39 Pulse 83 02/08/25 08:39 Resp 16 02/08/25 08:39 BP 110/61 02/08/25 08:39 Pulse Ox 98 02/08/25 08:39 O2 Del Method Room Air 02/08/25 08:39 Airway Mallampati Class: II TM Dist: >3cm Neck ROM: Full Loose/Missing/Broken Teeth: No Heart: RRR Lungs: CTA Assessment and Plan Assessment Anesthesia Assessment: Anesthesia Plan Discussed and Chart Reviewed Final Anesthetic Review History of Problems with Anesthesia: No NPO: Yes ASA Class: II Final Preanesthetic Review: Meds/Allgs Chart Reviewed, Consent Obtained/Reviewed and Anes Risks/Benef Reviewed Patient Risk: Low Procedure Risk: Low Anesthetic Plan Anesthetic Plan: MAC: Disposition: Standard PACU
[2025-02-08 11:01] VITALS: BP 125/82; PULSE 80; RESP 18; TEMP 36.4; O2SAT 100
--- NOTE | 2025-02-08 11:09 | PM.OP ---
Brief Operative Note Date of Service: 02/08/25 Pre-op diagnosis: Screening Post-op diagnosis: other (Polyp) Procedure: Colonoscopy to the cecum with bx/removal of polyp Surgeon: Andrew Madera MD Anesthesia: MAC Was an Boiler Room Helper used for this Procedure?: No Estimated blood loss (mL): 2.0 Pathology: other (A. Polyp at 20cm) Condition: stable Disposition: PACU
[2025-02-08 11:15] VITALS: BP 110/80; PULSE 80; RESP 18; TEMP 36.3; O2SAT 100
--- NOTE | 2025-02-08 11:56 | OP_ITS ---
DATE OF SERVICE: 02/08/2025 SURGEON: Andrew Madera MD INDICATIONS: The patient presents for evaluation of colorectal cancer screening and personal history of colon polyps. Full consent has been obtained from her for this, including risks of bleeding and perforation. PREOPERATIVE DIAGNOSIS: POSTOPERATIVE DIAGNOSIS: PROCEDURE PERFORMED: Colonoscopy to the cecum with biopsy and removal of polyp. ESTIMATED BLOOD LOSS: COMPLICATIONS: ANESTHESIA: Medication used; monitored anesthesia care. ASSISTANTS: SPECIMENS: PREOPERATIVE DIAGNOSES: Colorectal cancer screening and family history of colon cancer. POSTOPERATIVE DIAGNOSES: Colorectal cancer screening and family history of colon cancer, small colon polyp, diverticulosis, and internal hemorrhoids. DESCRIPTION OF PROCEDURE: The patient was placed in the left lateral decubitus position. The digital rectal exam revealed no abnormalities. The Olympus videopediatric colonoscope was entered into the rectum and advanced easily to the cecum. Once in the cecum, I did identify normal-appearing cecal pouch with appendiceal orifice and a normal-appearing ileocecal valve. There was transillumination of light deep in the right lower quadrant. The entire cecum was well visualized and appeared normal. The scope was slowly withdrawn assessing all mucosal surfaces carefully. Preparation was excellent. At 20 cm, there was a flat approximately 4 or 5 mm polyp, which was biopsied and completely removed with cold biopsy forceps. I did not visualize any other polyps, colitis, nor angiodysplasia. There was a mild amount of sigmoid diverticulosis. In the rectum, scope was retroflexed visualizing internal hemorrhoids, but no other pathology. The rectal mucosa appeared normal. Scope was straightened and withdrawn from the patient. She tolerated the procedure well and was returned to recovery area in stable condition. IMPRESSION: 1. Colon polyp. 2. Diverticulosis. 3. Internal hemorrhoids. PLAN: The results of biopsies will be checked. I would recommend a repeat colonoscopy in 5 years for further screening. She will see me otherwise on a p.r.n. basis. MD TIFFANY Montgomery/MANDY / [phone]
== END 2025-02-08 11:55 | disposition home or self-care (01) ==
PROVIDERS: Visit Provider Internal Medicine
PROC: 0DJD8ZZ Inspection of Lower Intestinal Tract, Via Natural or Artificial Opening Endoscopic (ICD-10-PCS; CPT 45378; principal; 2025-02-08 09:30)
DX: Z12.11 Encounter for screening for malignant neoplasm of colon (principal); Z86.0101 Personal history of adenomatous and serrated colon polyps; Z80.0 Family history of malignant neoplasm of digestive organs; D12.5 Benign neoplasm of sigmoid colon; K57.30 Diverticulosis of large intestine without perforation or abscess without bleeding; K64.8 Other hemorrhoids; I10 Essential (primary) hypertension; E78.5 Hyperlipidemia, unspecified; Z79.82 Long term (current) use of aspirin; Z79.899 Other long term (current) drug therapy; Z87.891 Personal history of nicotine dependence
CPT/HCPCS: 45380; 88305; J2371; J2704

== ENCOUNTER 2025-03-09 13:42 | Outpatient (AMB) | payer MEDICARE, OTHER, SELFPAY ==
[2025-03-09 13:52] VITALS: BP 150/72; PULSE 62; RESP 14; TEMP 36.6; O2SAT 98; BMI 25.0
--- NOTE | 2025-03-09 13:52 | A.OFFPC_ITS ---
Vital Signs 03/09/25 13:52 Height 5 ft 6 in Weight 155 lb BMI 25.0 BP 150/72 H Respiration 14 Pulse 62 Pulse Source Pulse Oximeter Temp 97.9 F Temp Source Temporal Artery Scan Pulse Oximetry (%) 98 Oxygen Delivery Method Room Air Intake Visit Reasons: Routine Brand Communications Manager Required: No Accompanied by: Self / Same As Patient Allergies No Known Allergies Allergy (Verified 03/09/25 13:54) Tobacco use date assessed: 03/09/25 Fall risk assessment: No Falls in past year Last assessed Fall Risk: 03/09/25 Dental Screening Dental Screen Date: 03/09/25 Did you have a dental visit in the last 12 months?: Yes Did you have a dental problem in the last 6 months where you did not have access to dental care?: No Was dental information given to patient?: Patient has dentist HPI HPI Comments History of Present Illness Details The patient is a 69 year old female with a past medical history of hypertension, hyperlipidemia, GERD, raynauds, colon polyps presenting for follow up CV: Follows with cardiology. Dr Robles. Follow up scheduled for june. On hctz, atenolol, aldactone, crestor and ASA. BP 150/72. Blood pressure is well controlled at home Denies chest pain, dizziness. Continues to have raynauds of feet and hands. Peripheral pulses are 2+ Emergency iridectomy: Dr louie. Recurrent tinea cruris in the buttocks. Has failed topical therapy Colonoscopy 02/08/25-5 year return Mammo 05/10/24-scheduled for April DXA 10/08/2024 ROS CONSTITUTIONAL: Denies weight loss, fever and chills. HEENT: Denies changes in vision and hearing. RESPIRATORY: Denies SOB and cough. CV: Denies palpitations and CP GI: Denies abdominal pain, nausea, vomiting and diarrhea. : Denies dysuria and urinary frequency. MSK: Denies new myalgia and joint pain. SKIN: Denies rash and pruritus. NEUROLOGICAL: Denies headache PSYCHIATRIC: Denies recent changes in mood. PHYSICAL EXAM: GENERAL: Alert and oriented x 3. NAD EYES: EOMI. Anicteric. HENT: Moist mucous membranes. No scleral icterus. No cervical lymphadenopathy. LUNGS: Clear to auscultation bilaterally. CARDIOVASCULAR: Regular rate and rhythm. No murmur. No JVD. ABDOMEN: Soft, non-tender +bs EXTREMITIES: No edema. Non-tender. SKIN: No rashes or lesions. Warm. NEUROLOGIC: No focal neurological deficits. CN II-XII grossly intact PSYCHIATRIC: Cooperative. Appropriate mood and affect [facility] Medical History Hyperlipidemia HTN (hypertension) Acute electrocardiogram changes History of echocardiogram History of Holter monitoring Atrial septal aneurysm Orthostatic hypotension Heart palpitations Essential hypertension Surgical History Hx of removal of cyst Hx of section H/O colonoscopy (~02/08/25) No pertinent past surgical history Family History Father HTN (hypertension) Aortic dissection Mother HTN (hypertension) Social History Housing: House Are you a primary pharmacy customer care specialist to a significant other at home: No Do you presently have visiting nurse or other home services: No Alcohol intake: current Alcohol intake frequency: holidays/special occasions only Patient Tobacco Use Status: Former Tobacco user service: No Current occupational status: retired Cognitive needs: No Hearing needs: No Vision needs: Yes (rx glasses) Questionnaire PHQ-9 Over the last 2 weeks, how often have you been bothered by any of the following problems? 1. Little interest or pleasure in doing things: not at all 2. Feeling down, depressed, or hopeless: not at all 3. Trouble falling or staying asleep, or sleeping too much: not at all 4. Feeling tired or having little energy: not at all 5. Poor appetite or overeating: not at all 6. Feeling bad about yourself - or that you are a failure or have let yourself or your family down: not at all 7. Trouble concentrating on things, such as reading the newspaper or watching television: not at all 8. Moving or speaking so slowly that other people could have noticed. Or the opposite - being so fidgety or restless that you have been moving around a lot more than usual: not at all 9. Thoughts that you would be better off or of hurting yourself in some way: not at all Total score: 0 Depression Screening Interpretation: Negative Depression Screening Done: Yes 74599 - PHQ-9 Billing: Yes Source: Developed by Drs. Andrew Clark, Sondra Cain, Negrito Harris and colleagues, with an educational jorge from [employer]. Thrive Questionnaire Date Thrive assessed: 03/09/25 I am a: Patient What is your living situation today?: I have a steady place to live Within the past 12 months, did the food you bought not last and you didn't have the money to get more?: Never true Within the past 12 months, did you worry whether your food would run out before you got money to buy more?: Never true Do you have trouble paying for medicines?: No Do you have trouble getting transportation to medical appointments?: No Do you have trouble paying your heating and electricity bill?: No Do you have trouble taking care of your child, family member or friend?: No Do you have trouble with day-to-day activities such as bathing, preparing meals, shopping, managing finances, etc.?: No Are you currently unemployed and looking for a job?: No Are you interested in more education?: No Please select the resources that you would like help with: None THRIVE Score: 0 AUDIT C Alcohol Use Questionnaire (AUDIT-C) 1. How often do you have a drink containing alcohol?: Monthly or less 2. How many drinks containing alcohol do you have on a typical day when you are drinking?: 1 or 2 3. How often do you have six or more drinks on one occasion?: Never Total Score: 1 THANH-7 AMB Questionnaire THANH-7 Date THANH - 7 assessed: 03/09/25 Feeling nervous, anxious, or on edge: 0 = Not at all Not being able to stop or control worryin = Not at all Worrying too much about different things: 0 = Not at all Trouble relaxin = Not at all Being so restless that it is hard to sit still: 0 = Not at all Becoming easily annoyed or irritable: 0 = Not at all Feeling afraid as if something awful might happen: 0 = Not at all Total THANH-7 score (0-4 normal; 5-9 mild; 10-14 moderate; 15-21 severe): 0 Source: Developed by Drs. Andrew Clark, Sondra Cain, Negrito Harris and colleagues, with an educational jorge from [employer]. Physical exam (Primary Care) Vital Signs: Last Vital Signs Temp 97.9 F 03/09/25 13:52 Pulse 62 03/09/25 13:52 Resp 14 03/09/25 13:52 BP 150/72 H 03/09/25 13:52 Pulse Ox 98 03/09/25 13:52 Oxygen Delivery Method Room Air 03/09/25 13:52 BMI result Body Mass Index 25.0 Tobacco/Smoking Status: Tobacco use Status Tobacco use date assessed 03/09/25 03/09/25 14:03 Patient Tobacco Use Status Former Tobacco user 03/09/25 14:03 PHQ-9: PHQ-9 Score PHQ-9: Total score 0 03/09/25 14:15 Depression Screening Interpretation: Negative Thrive Assessment: Date of Thrive Assessment Date Thrive assessed 03/09/25 03/09/25 14:03 Coding Level of Care Code New Pt Level 4 (45610) Complex EM visit Add On G2211 Diagnoses Primary hypertension I10 Hypertension type: primary hypertension Hyperlipidemia, unspecified hyperlipidemia type E78.5 Hyperlipidemia type: unspecified Elevated glucose R73.09 Intertrigo L30.4 Additional Codes PHQ-9 - 29587 - PHQ-9 Billing: Yes ([id number]) Assessment & Plan Assessment & Plan (1) HTN (hypertension): Code(s): I10 - Essential (primary) hypertension Category: Medical Qualifiers: Hypertension type: primary hypertension Qualified Code(s): I10 - Essential (primary) hypertension (2) Hyperlipidemia: Code(s): E78.5 - Hyperlipidemia, unspecified Category: Medical Qualifiers: Hyperlipidemia type: unspecified Qualified Code(s): E78.5 - Hyperlipidemia, unspecified (3) Elevated glucose: Code(s): R73.09 - Other abnormal glucose Category: Medical (4) Intertrigo: Code(s): L30.4 - Erythema intertrigo Category: Medical Plan 69 year old to establish care Past medical, surgical, social history reviewed Chronic medical conditions stable. BP borderline. well controlled at home Intertrigo-fluconazole x 7days Raynauds-reassurance provided Orders: Orders Comprehensive Met. Panel 4 Months E78.5 - Hyperlipidemia, unspecified, I10 - Essential (primary) hypertension, R73.09 - Other abnormal glucose Hemoglobin A1c 4 Months E78.5 - Hyperlipidemia, unspecified, I10 - Essential (primary) hypertension, R73.09 - Other abnormal glucose Vitamin D 25-OH (D2 and D3) 4 Months E78.5 - Hyperlipidemia, unspecified, I10 - Essential (primary) hypertension, R73.09 - Other abnormal glucose Lipid Panel 4 Months E78.5 - Hyperlipidemia, unspecified, I10 - Essential (primary) hypertension, R73.09 - Other abnormal glucose Medications: New fluconazole 150 mg PO DAILY 7 tabs 0RF nystatin 1 appl topical BID 60 grams 3RF atenolol 25 mg PO BEDTIME 90 tabs 3RF
--- OUTSIDE RECORDS SUMMARY | 2025-03-09 14:18 | XMS_ITS ---
Author Organization [facility] Address [address] [place] [address] Care Team Providers Care Vegetable Farm Manager Name Role Phone David Grider MD Primary Care Provider Andrew Rasheed [phone] REASON FOR VISIT screening,hx polyps Encounters Encounter Location Date Provider Diagnosis [facility] [place] [place] Outpatient [address] [place], [place] [id number] 02/08/2025 Andrew Madera Colon cancer scree awilda [...] Information Progress Notes * IDALMIS GARNERDOB:1955 ( 69 yo F)Acc No.[id number]:02/08/2025 COLON WITH MAC Patient:?IDALMIS GARNER Provider:?Andrew Madera MD :1955???Age:69 Y???Sex:Female D ate:02/08/2025 Address:[address] [place] [id number] Pcp:David Grider MD Subjective: * Chief Complaints: * ???1. Screening,hx polyps. * Medical History:? Objective: * Vitals:? Assessment: * Assessment: 1.?Colon cancer screening - Z12.11 (Primary)???2.?Colon polyps - K63.5???3.?Diverticulosis of large intestine without perforation or abscess without bleeding - K57.30???4.?Other hemorrhoids - K64.8??? Plan: * Treatment: * Procedure Codes:?73107 COLON OSCOPY AND BIOPSY, Modifiers: PT , 0529F INTRVL 3+YRS PTS CLNSCP DOCD, 0528F RCMND FLW-UP 10 YRS DOCD * * The named appointment provid er may or may not be the originator of this progress note, and it is not deemed complete until electronically signed by the appointment provider. Sign off status: Pending * Provider:?Andrew Madera MD Date:? 025 Generated for Vaibhav huizar/Deni/eTransmitting on:?03/09/2025 02:18 PM EDT
--- OUTSIDE RECORDS SUMMARY | 2025-03-09 14:18 | XMS_ITS | Patient Health Record ---
Author Organization [facility] Address [address] [place] [address] Care Team Providers Care Rock Room Worker Name Role Phone David Grider MD Primary Care Provider Wilbura Andrew Valenzuela Unavailable [phone] Allergies No Known Allergies Results Component Value Reference Range Notes Pathology (Not yet reviewed by provider) Interpretation: Performing Lab:[facility], [address] [place] [phone] Notes/Report: Name: Idalmis Anguiano Age/Sex: 69/F : 1955 Unit#: [id number] Attend Dr: Andrew Madera MD Re02/08/25 Status : [facility] Location: [facility] Disch: SPEC : [id number] RECD : 02/08/25 STATUS: YUVAL CERRATO NUM: [id number] MIRI: 02/08/25-1054 [facility] DR: Andrew Madera MD ENTERED: 02/08/25- 05 SP TYPE: Surgical OTHR DR: ORDERED: HE Stain/3, Gross Micro L4 Diagnosis Colon, 20 cm, polype ctomy: Fragments of tubular adenoma; negative for high-grade dysplasia or carcinoma. Clinical History Pre-Op Dx: Personal history of colon polyps, unspecified Post-Op Dx: Colon po lyp, diverticulosis, hemorrhoids Microscopic Description Microscopic sections reviewed. Material Received Polyp at 20 cm Gross Description Received in formalin labeled polyp at 20 cm? are 4 muniz-pink irregular tissue fragments ranging from 0.1-0.3 cm, submitted in toto in a cassette labeled AndreLd GAN Signed (si gnature on file) Aldo Eldridge MD 02/09/25 1526 END OF REPORT Reason For Referral No Information Medications Medication [...] Nonsmoker; no sig. 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 Problems Problem Type SNOMED Code ICD Code Onset Dates Problem Status W/U Status Risk Notes Problem 448144384 Encounter for screening for malignant neoplasm of colon (Z12.11) Active confirmed Problem 558527486 History of adenomatous polyp of colon (Z86.010) Active confirmed Problem 296001806176962 Preprocedural examination (Z01.818) Active confirmed Problem 106950265 Long-term use of aspirin therapy (Z79.82) Active confirmed Problem Personal history of adenomatous and serrated colon polyps (Z86.0101) Active confirmed Vital Signs Blood pressure diastolic 00 mm Hg 11/08/2024 Height 66.5 in 11/08/2024 Blood pressure systolic 00 mm Hg 11/08/2024 Weight 159 lbs 11/08/2024 BMI 25.28 kg/m2 11/08/2024 Encounters Encounter Location Date Provider Diagnosis [facility] [place] [address] [place], [place] [phone] 02/08/2025 Andrew Madera Colon cancer screeni ng Z12.11 ; Colon polyps K63.5 ; Diverticulosis of large intestine without perforation or abscess without bleeding K57.30 and Other hemorrhoids K64.8 [facility] [address] [place] [address] 11/08/2024 Andrew Madera History of adenomato us polyp of colon Z86.010 ; Long-term use of aspirin therapy Z79.82 and Encounter for screening for malignant neoplasm of colon Z12.11 Assessments Encounter Date Diagnosis (ICD Code) Assessment Notes Treatment Notes Treatment Clinical Notes Section Notes 02/08/2025 Colon cancer screening (ICD-10 - Z12.11) 02/08/2025 Colon polyps (ICD-10 - K63.5) 11/08/2024 History of adenomatous polyp of colon [...] to keep you advised of her progress. 02/08/2025 Diverticulosis of large intestine without perforation or abscess without bleeding (ICD-10 - K57.30) 11/08/2024 Encounter for screening for malignant neoplasm [...] to keep you advised of her progress. 02/08/2025 Other hemorrhoids (ICD-10 - K64.8) Plan Of Treatment Pending Test Test Name Order Date Pathology 02/08/2025 Future Test Test Name Order Date COLONOSCOPY 02/15/2013 COLONOSCOPY 07/05/2019 COLONOSCOPY 11/08/2024 Insurance Providers Payer Name Payer Address Payer Phone Subscriber Number Group Number Insured Name Patient Relationship to Insured Coverage Start Date Coverage End Date MEDICARE OF [place] [address] [place] [address] [id number] IDALMIS ANGUIANO Self - patient is the insured [facility] [address] [place] [phone] [id number] IDALMIS ANGUIANO Self - patient is the insured Medical (General) History Medical History History ICD Code Hypertension Denies VT,DM,CVA,Lung disease,renal dise ase Screening Colonoscopy in 03/2013 with 2 s mall tubular adenomas Hyperlipidemia Negative followup screening colonoscopy in August of 2019 Surgical History Surgery Date(Month/Year) Skin cysts removal X 2
--- OUTSIDE RECORDS SUMMARY | 2025-03-09 14:18 | XMS_ITS ---
Author Organization [facility] Address [address] [place] [address] Care Team Providers Care Delinquent Tax Collector Assistant Name Role Phone David Grider MD Primary Care Provider Andrew Rasheed Unavailable [phone] Allergies No Known Allergies REASON FOR VISIT [...] Nonsmoker; no sig. 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 Problems Problem Type SNOMED Code ICD Code Onset Dates Problem Status W/U Status Risk Notes Problem Personal history of adenomatous and serrated colon polyps (Z86.0101) Active confirmed Vital Signs Blood pressure systolic 00 mm Hg 11/08/19 25 Blood pressure diastolic 00 mm Hg 025 Height 66.5 in 11/08/2024 Weight 159 lbs 11/08/2024 BMI 25.28 kg/m2 11/08/2024 Encounters Encounter Location Date Provider Diagnosis [facility] [address] [place] [address] 11/08/2024 Andrew Madera History of adenomato us [...] Next Appt Details Follow Up: prn, Reason: Progress Notes * IDALMIS GARNERDOB:1955 ( 69 yo F)Acc No.[id number]:11/08/2024 Progress Notes Patient:?IDALMIS GARNER Provider:?Andrew Madera MD :1955???Age:69 Y???Sex:Female D ate:11/08/2024 Address:[address] [place], [place] [phone] Pcp:David Grider MD Subjective: * Chief Complaints: [...] ???Nonsmoker; no sig. 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 * Medications:?TakingAtenolol 25 MG Tablet 1 tablet [...] Procedure Codes:?3017F COLOR ECTAL CA SCREEN DOC SAR9250O TOBACCO NON-KLQUI5080 BP SCR NOT PRFRM REC REASON NOS [...] Madera MD Date:? 025 Generated for Vaibhav huizar/Deni/Rubensitting on:?03/09/2025 02:18 PM EDT History and Physical Notes * [...]
== END 2025-03-09 14:26 | disposition home or self-care (01) ==
LOC: HO.HMCHD 13:42
PROVIDERS: PCP Internal Medicine; Visit Provider Internal Medicine
DX: I10 Essential (primary) hypertension (principal); E78.5 Hyperlipidemia, unspecified; R73.09 Other abnormal glucose; L30.4 Erythema intertrigo

== ENCOUNTER → 2025-03-09 13:42 | Outpatient (BNVA) | payer MEDICARE, OTHER, SELFPAY | PROVIDERS: PCP Internal Medicine; Visit Provider Internal Medicine | DX: I10 Essential (primary) hypertension (principal); E78.5 Hyperlipidemia, unspecified; K21.9 Gastro-esophageal reflux disease without esophagitis; I73.00 Raynaud's syndrome without gangrene; R73.09 Other abnormal glucose; L30.4 Erythema intertrigo; Z86.0100 Personal history of colon polyps, unspecified | CPT/HCPCS: 96127; 99202 ==

== ENCOUNTER 2025-05-22 07:21 | Outpatient (REF) | payer MEDICARE, OTHER, SELFPAY | END 2025-05-22 07:22 | disposition home or self-care (01) | LOC: HO.MAMMO 07:21 | PROVIDERS: PCP Internal Medicine; Visit Provider Internal Medicine | DX: Z12.31 Encounter for screening mammogram for malignant neoplasm of breast (principal) | CPT/HCPCS: 77063; 77067 ==

== ENCOUNTER → 2025-05-22 07:30 | Outpatient (BNV) | payer MEDICARE, OTHER, SELFPAY | PROVIDERS: PCP Internal Medicine; Visit Provider Internal Medicine | DX: Z12.31 Encounter for screening mammogram for malignant neoplasm of breast (principal) | CPT/HCPCS: 77063; 77067 ==

== ENCOUNTER 2025-07-05 08:49 | Outpatient (AMB) | payer OTHER, SELFPAY ==
--- OUTSIDE RECORDS SUMMARY | 2025-02-08 05:30 | XMS_ITS ---
Author Organization [facility] Address [address] [place] [address] Care Team Providers Care Operations Asst Name Role Phone Marni (RETIRED) David HILL Primary Care Provide Andrew Giron [phone] REASON FOR VISIT screening,hx polyps Encounters Encounter Location Date Provider Diagnosis [facility] [place] [facility] [address] [place] [phone] 02/08/2025 Andrew Madera Colon cancer scree awilda [...] * IDALMIS GARNERDOB:1955 ( 70 yo F)Acc No.[id number]:02/08/2025 COLON WITH MAC Patient: IDALMIS PORTILLO Provider: Sonja Madera MD :1955 A ge:69 Y S ex:Female Date:02/08/2025 Address:[address] [place], [place] [address] Pcp:David Grider (RETIRED )MD Subjective: * Chief [...] 02/08/2025 Generated for Vaibhav huizar/Deni/Rubensitting on: 0 07/05/2025 10:21 AM EDT
[2025-07-05 09:03] VITALS: BP 118/62; PULSE 68; BMI 25.6
--- NOTE | 2025-07-05 09:03 | MHC.OFFVIS ---
Vital Signs 07/05/25 09:03 Height 5 ft 6 in Weight 158 lb 11.725 oz BMI 25.6 BP 118/62 Blood Pressure Location Lt brachial Position Sitting Pulse 68 Pulse Source Monitor Intake Visit Reasons: 1 year follow up Allergies No Known Allergies Allergy (Verified 03/09/25 13:54) Medication List - Last Reconciled 07/05/25 by Sharad Robles MD aspirin 81 mg PO DAILY atenolol 25 mg PO BEDTIME cholecalciferol (vitamin D3) 25 mcg PO DAILY hydrochlorothiazide 12.5 mg PO DAILY nystatin 1 appl topical BID rosuvastatin (Crestor) 10 mg PO DAILY spironolactone 25 mg PO DAILY HPI Comments Details: Bree returns for follow-up. In the past, she was seen regarding low blood pressures. She has hypertension for which she was on numerous medications including atenolol, lisinopril, amlodipine, triamterene/hydrochlorothiazide in the past. Due to markedly low blood pressures, she was actually admitted to the hospital and rehydrated. Then was taking only Atenolol/Hydrochlorothiazide. However, blood pressure was again going high. Then we added spironolactone to the regimen. After this, blood pressure is improved significantly. Since last seen, no new concerns. She has been quite stable. [facility] Medical History Hyperlipidemia HTN (hypertension) Acute electrocardiogram changes History of echocardiogram History of Holter monitoring Atrial septal aneurysm Orthostatic hypotension Heart palpitations Essential hypertension Surgical History Hx of removal of cyst Hx of section H/O colonoscopy (~02/08/25) No pertinent past surgical history Family History Father HTN (hypertension) Aortic dissection Mother HTN (hypertension) Social History Housing: House Are you a primary critical care specialist to a significant other at home: No Do you presently have visiting nurse or other home services: No Alcohol intake: current Alcohol intake frequency: holidays/special occasions only Patient Tobacco Use Status: Former Tobacco user service: No Current occupational status: retired Cognitive needs: No Hearing needs: No Vision needs: Yes (rx glasses) Review of Systems Const Denies weakness ENT Denies dizziness Card Denies chest pain, Denies chest pain with activity, Denies syncope, Denies rapid heart rate, Denies pedal edema, Denies edema, Denies leg edema, Denies lightheadedness, Denies palpitations, Denies dyspnea, Denies dyspnea on exertion and Denies orthopnea Resp Denies cough, Denies dyspnea and Denies dyspnea on exertion GI Denies hematochezia and Denies change in stool character Musc Denies abnormal gait, Denies muscle cramps, Denies muscle weakness, Denies numbness, Denies radiating pain into limb and Denies tingling Neuro Denies abnormal gait, Denies dizziness, Denies syncope, Denies numbness, Denies tingling and Denies weakness Endo Denies palpitations Physical Exam Vital Signs: Last Vital Signs Pulse 68 07/05/25 09:03 BP 118/62 07/05/25 09:03 BMI result Body Mass Index 25.6 Const General: comfortable and no acute distress Orientation/consciousness: patient oriented x3 HEENT Other: Unremarkable Head: Yes normal to inspection Neck Neck: Yes normal visual inspection Chest Chest palpation & inspection: normal inspection of the chest Resp Auscultation: clear to auscultation bilaterally Cardio Palpation: normal PMI Heart sounds: S1 normal heart sound present, S2 normal heart sound present, no gallops, no murmurs and no rubs GI Palpation (GI): Soft to palpation Back/Spine/Pelvis Other: unremarkable Skin General skin exam: no rashes or lesions noted Neuro General: patient oriented x3 Extrem General: Yes normal to inspection Psych Mental Status: mental status grossly normal Office Procedures EKG Details: EKG with sinus rhythm at 68/Min; no clear ischemic changes; [place] [address]-Tkokgjocnltpvjdgo, Complete Assessment & Plan Assessment & Plan (1) Orthostatic hypotension: Code(s): I95.1 - Orthostatic hypotension Category: Medical Plan: Stable. (2) Essential hypertension: Code(s): I10 - Essential (primary) hypertension Category: Medical Plan: Stable. Check renal function. (3) Atrial septal aneurysm: Code(s): I25.3 - Aneurysm of heart Category: Medical Plan: Bubble study is negative. (4) Family history of aortic dissection: Code(s): Z82.49 - Family history of ischemic heart disease and other diseases of the circulatory system Category: Medical Plan: Per patient, father had aortic dissection and from the same when he was 75 years old. Unremarkable screening CTs. Coding Level of Care Code Est Pt Level 3 (13461) Diagnoses Orthostatic hypotension I95.1 Essential hypertension I10 Atrial septal aneurysm I25.3 Family history of aortic dissection Z82.49 CPT Codes EKG - CPT: 70607-Neyqboikzzdbewnye, Complete ([id number])
--- OUTSIDE RECORDS SUMMARY | 2025-07-05 10:21 | XMS_ITS | Patient Health Record ---
Author Organization [facility] Address [address] [place] [address] Care Team Providers Care Rolled Seat Trimmer Name Role Phone Marni (RETIRED) David HILL Primary Care Provide r Unavailable Andrew Madera Unavailable [phone] Allergies No Known Allergies Results Component Value Reference Range Notes Pathology (Not yet reviewed by provider) Interpretation: Performing Lab:[facility], [address] [place] [id number] Notes/Report: Reason For Referral No Information Medications Medication [...] Nonsmoker; no sig. 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 Problems Problem Type SNOMED Code ICD Code Onset Dates Problem Status W/U Status Risk Notes Problem 154251721 Encounter for screening for malignant neoplasm of colon (Z12.11) Active confirmed Problem 564646539 History of adenomatous polyp of colon (Z86.010) Active confirmed Problem 045430771981711 Preprocedural examination (Z01.818) Active confirmed Problem 242176871 Long-term use of aspirin therapy (Z79.82) Active confirmed Problem Personal history of adenomatous and serrated colon polyps (Z86.0101) Active confirmed Vital Signs Blood pressure diastolic 00 mm Hg 11/08/2024 Height 66.5 in 11/08/2024 Blood pressure systolic 00 mm Hg 11/08/2024 Weight 159 lbs 11/08/2024 BMI 25.28 kg/m2 11/08/2024 Encounters Encounter Location Date Provider Diagnosis [facility] [address] [place], [place] [id number] 02/08/2025 Andrew Cassy Colon cancer screeni ng Z12.11 ; Colon polyps K63.5 ; Diverticulosis of large intestine without perforation or abscess without bleeding K57.30 and Other hemorrhoids K64.8 [facility] [address] [place] [address] 11/08/2024 Andrew Madera History of adenomato us [...] Start Date Coverage End Date MEDICARE OF [place] [address] [place] [id number] PATSYIDALMIS Self - patient is the insured [facility] [address] [place] [address] [id number] IDALMIS GARNER Self - patient is the insured Medical (General) History Medical History History ICD Code Hypertension Denies [place],DM,CVA,Lung disease,renal dise ase Screening Colonoscopy in 03/2013 with 2 s mall tubular adenomas Hyperlipidemia Negative followup screening colonoscopy in August of 2019 Surgical History Surgery Date(Month/Year) Skin cysts removal X 2
== END 2025-07-05 09:17 | disposition home or self-care (01) ==
LOC: HO.HCS 08:50
PROVIDERS: PCP Internal Medicine; Visit Provider Internal Medicine
DX: I95.1 Orthostatic hypotension (principal); I10 Essential (primary) hypertension; I25.3 Aneurysm of heart; Z82.49 Family history of ischemic heart disease and other diseases of the circulatory system
CPT/HCPCS: 93010; 99213

== ENCOUNTER → 2025-07-05 08:49 | Outpatient (BNVA) | payer OTHER, SELFPAY | PROVIDERS: PCP Internal Medicine; Visit Provider Internal Medicine | DX: I95.1 Orthostatic hypotension (principal); I10 Essential (primary) hypertension; I25.3 Aneurysm of heart; Z82.49 Family history of ischemic heart disease and other diseases of the circulatory system | CPT/HCPCS: 93005 ==

== ENCOUNTER 2025-07-07 09:17 | Outpatient (REF) | payer OTHER, SELFPAY ==
--- OUTSIDE RECORDS SUMMARY | 2025-02-08 05:30 | XMS_ITS ---
Author Organization [facility] Address [address] [place] [address] Care Team Providers Care Manager Project Management Name Role Phone Marni (RETIRED) David HILL Primary Care Provide Andrew Giron [phone] REASON FOR VISIT screening,hx polyps Encounters Encounter Location Date Provider Diagnosis [facility] [address] [place] [phone] 02/08/2025 Andrew Madera Colon cancer scree awilda Z12.11 ; Colon polyps K63.5 ; Diverticulosis of large intestine without perforation or abscess without bleeding K57.30 and Other hemorrhoids K64.8 Assessments Encounter Date Diagnosis (ICD Code) Assessment Notes Treatment Notes Treatment Clinical Notes Section Notes 02/08/2025 Colon cancer screening (ICD-10 - Z12.11) 02/08/2025 Colon polyps (ICD-10 - K63.5) 02/08/2025 Diverticulosis of large intestine without perforation or abscess without bleeding (ICD-10 - K57.30) 02/08/2025 Other hemorrhoids (ICD-10 - K64.8) Plan Of Treatment No Information Progress Notes * IDALMIS GARNERDOB:1955 ( 70 yo F)Acc No.[id number]:02/08/2025 COLON WITH MAC Patient: IDALMIS PORTILLO Provider: Sonja Madera MD :1955 A ge:69 Y S ex:Female Date:02/08/2025 Address:[address] [place], [place] [address] Pcp:David Grider (RETIRED )MD Subjective: * Chief Complaints: * 1 . Screening,hx polyps. * Medical History: Objective: * Vitals: Assessment: * Assessment: 1. C olon cancer screening - Z12.11 (Primary) 2 . C olon polyps - K63.5? 3. D iverticulosis of large intestine without perforation or abscess without bleeding - K57.30 4 . O ther hemorrhoids - K64.8 Plan: * Treatment: * Procedure Codes: 4 5380 COLONOSCOPY AND BIOPSY, Modifiers: PT , 0529F INTRVL 3+YRS PTS CLNSCP DOCD, 0528F RCMND FLW-UP 10 YRS DOCD * * The named appointment provid er may or may not be the originator of this progress note, and it is not deemed complete until electronically signed by the appointment provider. Sign off status: Pending * Provider: Sonja Madera MD Date: 0 02/08/2025 Generated for Vaibhav huizar/Deni/Rubensitting on: 0 07/07/2025 10:17 AM EDT
--- OUTSIDE RECORDS SUMMARY | 2025-07-07 10:17 | XMS_ITS | Patient Health Record ---
Author Organization [facility] Address [address] [place] [address] Care Team Providers Care Composer Teaching Artist Name Role Phone Marni (RETIRED) David HILL Primary Care Provide r Unavailable Andrew Madera Unavailable [phone] Allergies No Known Allergies Results Component Value Reference Range Notes Pathology (Not yet reviewed by provider) Interpretation: Performing Lab:[facility], [address] [place] [phone] Notes/Report: Reason For Referral No Information Medications [...] Nonsmoker; no sig. 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 Problems Problem Type SNOMED Code ICD Code Onset Dates Problem Status W/U Status Risk Notes Problem 458871021 Encounter for screening for malignant neoplasm of colon (Z12.11) Active confirmed Problem 235669246 History of adenomatous polyp of colon (Z86.010) Active confirmed Problem 069437892582045 Preprocedural examination (Z01.818) Active confirmed Problem 916796425 Long-term use of aspirin therapy (Z79.82) Active confirmed Problem Personal history of adenomatous and serrated colon polyps (Z86.0101) Active confirmed Vital Signs Blood pressure diastolic 00 mm Hg 11/08/2024 Height 66.5 in 11/08/2024 Blood pressure systolic 00 mm Hg 11/08/2024 Weight 159 lbs 11/08/2024 BMI 25.28 kg/m2 11/08/2024 Encounters Encounter Location Date Provider Diagnosis [facility] Outpatient [address] [place], [place] [phone] 02/08/2025 Andrew Cassy Colon cancer screeni ng Z12.11 ; Colon polyps K63.5 ; Diverticulosis of large intestine without perforation or abscess without bleeding K57.30 and Other hemorrhoids K64.8 [facility] [address] [place] [address] 11/08/2024 Andrew Madera History of adenomato us [...] OF [employer] [address] [place] [id number] PATSYIDALMIS Self - patient is the insured [facility] [address] [place] [address] [id number] IDALMIS GARNER Self - patient is the insured Medical (General) History Medical History History ICD Code Hypertension Denies [place],DM,CVA,Lung disease,renal dise ase Screening Colonoscopy in 03/2013 with 2 s mall tubular adenomas Hyperlipidemia Negative followup screening colonoscopy in August of 2019 Surgical History Surgery Date(Month/Year) Skin cysts removal X 2
[2025-07-07 10:36] LABS: Alanine Aminotransferase 17 U/L (0-31); Albumin Level 4.1 g/dL (3.5-5.0); Alkaline Phosphatase 64 U/L (39-117); Anion Gap 11 (12-20); Aspartate Amino Transferase 29 U/L (5-31); Blood Urea Nitrogen 19 mg/dL (9-16); Calcium 9.2 mg/dL (8.4-10.2); Carbon Dioxide 29 mmol/L (22-29); Chloride 105 mmol/L (96-108); Cholesterol 145 mg/dL (<200); Estimated Glomerular Filt Rate 58; HDL Cholesterol 66 mg/dL (>40); Potassium 3.9 mmol/L (3.3-5.1); Sodium 141 mmol/L (135-145); Total Protein 6.8 g/dL (6.5-8.0); Triglycerides 68 mg/dL (<150)
[2025-07-07 10:41] LABS: Hemoglobin A1C 138.0724 umol/L; Total Hemoglobin (HGBA1C) 3691.8142 umol/L
[2025-07-12 12:18] LABS: Vitamin D 25-OH, D2 <4 ng/mL; Vitamin D 25-OH, D3 85 ng/mL; Vitamin D 25-OH, Total 85 ng/mL (30-100)
== END 2025-07-07 09:18 | disposition home or self-care (01) ==
LOC: HO.10HDL 09:17
PROVIDERS: Visit Provider Internal Medicine
DX: E78.5 Hyperlipidemia, unspecified (principal); R73.09 Other abnormal glucose; I10 Essential (primary) hypertension
CPT/HCPCS: 36415; 80053; 80061; 82306; 83036

== ENCOUNTER 2025-07-13 13:42 | Outpatient (AMB) | payer OTHER, SELFPAY ==
[2025-07-13 11:55] VITALS: BP 122/80; PULSE 58; O2SAT 99; BMI 26.0
--- NOTE | 2025-07-13 11:55 | A.OFFPC_ITS ---
Vital Signs 07/13/25 11:55 Height 5 ft 6 in Weight 161 lb BMI 26.0 BP 122/80 Blood Pressure Location Lt brachial Position Sitting Pulse 58 Pulse Source Pulse Oximeter Pulse Oximetry (%) 99 Oxygen Delivery Method Room Air Intake Visit Reasons: Routine /[facility] Coordinator Required: No Accompanied by: Self / Same As Patient Allergies No Known Allergies Allergy (Verified 07/13/25 11:55) Medication List - Last Reconciled 07/13/25 by TONY Denny aspirin 81 mg PO DAILY atenolol 25 mg PO BEDTIME cholecalciferol (vitamin D3) 25 mcg PO DAILY hydrochlorothiazide 12.5 mg PO DAILY nystatin 1 appl topical BID rosuvastatin (Crestor) 10 mg PO DAILY spironolactone 25 mg PO DAILY Tobacco use date assessed: 07/13/25 Fall risk assessment: No Falls in past year Last assessed Fall Risk: 07/13/25 Dental Screening Dental Screen Date: 07/13/25 Did you have a dental visit in the last 12 months?: Yes Did you have a dental problem in the last 6 months where you did not have access to dental care?: No HPI HPI Comments History of Present Illness Details The patient is a 70-year-old female with HTN, HLD a history of transient global amnesia and history of acute glaucome treated surgically presenting for a routine check-up and management of chronic conditions. The patient has a history of hypertension, currently managed with atenolol, hydrochlorothiazide, and spironolactone. She experienced a hospitalization due to hypotension, which led to fainting and required medication adjustments. She was last seen by Cardiology 07/05/25. She is on Rosuvastain for HLD. Her recent labs were essentially normal. She reports a past episode of global transient amnesia, which was not fully understood by her healthcare providers. She was seen by Neurology. Additionally, she had an acute glaucoma episode characterized by a sudden increase in intraocular pressure, treated with a procedure to relieve the pressure. Her last eye exam was done <6months ago. The patient also mentions a history of mastoid infection during childhood, which she does not believe contributes to her current hearing issues. She will consider wether she would like to seek hearing aids She uses nystatin powder for a recurrent yeast infection, which she finds effective. Preventative care measures include a recent colonoscopy, next is due 2029. Mammogram was done 7/25, and bone density scan was done in 10/18 and were normal. She is due for PAP Patient was informed and verbally consented to the use of an ambient scribe for clinic note documentation during this visit. [facility] Medical History (Updated 07/13/25 @ 14:43 by TONY Denny) Acute electrocardiogram changes Atrial septal aneurysm Essential hypertension Health care maintenance Heart palpitations History of echocardiogram History of Holter monitoring HTN (hypertension) Hyperlipidemia Orthostatic hypotension Surgical History H/O colonoscopy (~02/08/25) Hx of section Hx of removal of cyst No pertinent past surgical history Family History (Updated 07/13/25 @ 14:06 by Mela Morales MA) Father HTN (hypertension) Aortic dissection Mother HTN (hypertension) Sister Substance abuse Social History Housing: House Are you a primary long term care social worker to a significant other at home: No Do you presently have visiting nurse or other home services: No Alcohol intake: current Alcohol intake frequency: holidays/special occasions only Patient Tobacco Use Status: Former Tobacco user e-Cigarette/Vaping Use: Former Use service: No Current occupational status: retired Cognitive needs: No Hearing needs: No Vision needs: Yes (rx glasses) Questionnaire PHQ-9 Over the last 2 weeks, how often have you been bothered by any of the following problems? 1. Little interest or pleasure in doing things: not at all 2. Feeling down, depressed, or hopeless: not at all 3. Trouble falling or staying asleep, or sleeping too much: not at all 4. Feeling tired or having little energy: not at all 5. Poor appetite or overeating: not at all 6. Feeling bad about yourself - or that you are a failure or have let yourself or your family down: not at all 7. Trouble concentrating on things, such as reading the newspaper or watching television: not at all 8. Moving or speaking so slowly that other people could have noticed. Or the opposite - being so fidgety or restless that you have been moving around a lot more than usual: not at all 9. Thoughts that you would be better off or of hurting yourself in some way: not at all Total score: 0 Depression Screening Interpretation: Negative Depression Screening Done: Yes Source: Developed by Drs. Andrew Clark, Negrito Godinez and colleagues, with an educational jorge from [employer]. Thrive Questionnaire Date Thrive assessed: 07/13/25 I am a: Patient Within the past 12 months, did the food you bought not last and you didn't have the money to get more?: Never true Within the past 12 months, did you worry whether your food would run out before you got money to buy more?: Never true Do you have trouble paying for medicines?: No Do you have trouble getting transportation to medical appointments?: No Do you have trouble paying your heating and electricity bill?: No Do you have trouble taking care of your child, family member or friend?: No Do you have trouble with day-to-day activities such as bathing, preparing meals, shopping, managing finances, etc.?: No Are you currently unemployed and looking for a job?: No Are you interested in more education?: No THRIVE Score: 0 AUDIT C Alcohol Use Questionnaire (AUDIT-C) 1. How often do you have a drink containing alcohol?: Monthly or less 2. How many drinks containing alcohol do you have on a typical day when you are drinking?: 1 or 2 3. How often do you have six or more drinks on one occasion?: Less than monthly Total Score: 2 THANH-7 AMB Questionnaire THANH-7 Date THANH - 7 assessed: 07/13/25 Feeling nervous, anxious, or on edge: 0 = Not at all Not being able to stop or control worryin = Not at all Worrying too much about different things: 0 = Not at all Trouble relaxin = Not at all Being so restless that it is hard to sit still: 0 = Not at all Becoming easily annoyed or irritable: 0 = Not at all Feeling afraid as if something awful might happen: 0 = Not at all Total THANH-7 score (0-4 normal; 5-9 mild; 10-14 moderate; 15-21 severe): 0 Source: Developed by Sondra Stark Kurt Kroenke and colleagues, with an educational jorge from [employer]. Review of Systems Const Details: CONSTITUTIONAL Negative HEAD/NECK Reports past acute glaucoma, denies current symptoms Reports difficulty hearing, denies formal hearing test as an adult EAR/NOSE/MOUTH/THROAT Negative RESPIRATORY Negative CARDIOVASCULAR Denies chest pain, palpitations, or dyspnea GASTROINTESTINAL Denies constipation, diarrhea, or regular heartburn MUSCULOSKELETAL Negative NEUROLOGICAL Reports past global transient amnesia, denies current symptoms PSYCHIATRIC Negative Physical exam (Primary Care) Vital Signs: Last Vital Signs Pulse 58 07/13/25 11:55 BP 122/80 07/13/25 11:55 Pulse Ox 99 07/13/25 11:55 Oxygen Delivery Method Room Air 07/13/25 11:55 BMI result Body Mass Index 26.0 GENERAL Well developed, Well nourished, in no apparent distress HEENT Head-Normocephalic Eyes- PERRLA, EOMI, Conjuctiva clear, lids WNL Ears- Canals clear, TMs WNL Mouth/Throat-No lesions, no erythema, no exudate Neck- Supple, No lymphadenopathy, thyroid WNL RESPIRATORY Normal I:E, Clear to auscultation CARDIOVASCULAR Regular, rate and rhythm, No murmurs or rubs GASTROINTESTINAL Soft, nontender, normal bowel sounds, no masses MUSCULOSKELETAL Back- nontender Joints- no pain swelling or deformity NEUROLOGICAL Gait normal PSYCHIATRIC Oriented to person, place and time Mood and affect WNL Appearance WNL Speech WNL Thought processes WNL Tobacco/Smoking Status: Tobacco use Status Tobacco use date assessed 07/13/25 07/13/25 11:57 Patient Tobacco Use Status Former Tobacco user 07/13/25 11:57 e-Cigarette/Vaping Use Former Use 07/13/25 11:57 PHQ-9: PHQ-9 Score PHQ-9: Total score 0 07/13/25 14:07 Depression Screening Interpretation: Negative Thrive Assessment: Date of Thrive Assessment Date Thrive assessed 07/13/25 07/13/25 11:57 Coding Level of Care Code Established Pt Est Pt Level 4 (97055) Patient Type Established Diagnoses Primary hypertension I10 Hypertension type: primary hypertension Hyperlipidemia, unspecified hyperlipidemia type E78.5 Hyperlipidemia type: unspecified Health care maintenance Z00.00 Time Spent (min) 30 Comment Time spent on chart review, medication reconciliation, H&P, patient education, orders Assessment & Plan Assessment & Plan (1) HTN (hypertension): Comment: BP today was 122/80 Code(s): I10 - Essential (primary) hypertension Category: Medical Qualifiers: Hypertension type: primary hypertension Qualified Code(s): I10 - Essential (primary) hypertension Plan: The patient is currently on atenolol, hydrochlorothiazide, and spironolactone for hypertension management. She experienced a previous hospitalization due to hypotension, which required medication adjustments.BP controlled today. Patient will continue current medications. Will monitor. Patient will follow up in 6 months. (2) Hyperlipidemia: Comment: Labs wnl Code(s): E78.5 - Hyperlipidemia, unspecified Category: Medical Qualifiers: Hyperlipidemia type: unspecified Qualified Code(s): E78.5 - Hyperlipidemia, unspecified Plan: Patient will continue current medications. Will monitor. Patient will follow up in 6 months. Controlled on Rostuvastatin. (3) Health care maintenance: Code(s): Z00.00 - Encounter for general adult medical examination without abnormal findings Category: Medical Plan: - Colonoscopy: Up to date, next in 5 years - Mammogram: Up to date, next in 1 year - Bone density scan: Up to date, normal results Will refer to ELEVATOR REPAIRER for PAP Plan During the visit, we discussed the management of hypertension with current medications and the importance of monitoring blood pressure to avoid hypotension. We also reviewed the patient's history of acute glaucoma and global transient amnesia, emphasizing the need for regular follow-ups. Preventative care measures were highlighted, including the scheduling of future screenings and the option for a Pap smear referral to E[facility] REPA[facility]. Patient Instructions: - Continue current medications for hypertension and monitor blood pressure regularly. - Follow up with wound care center consultant for glaucoma management. - Schedule a Pap smear with E[facility] REPA[facility] as discussed. - Maintain regular health screenings as per schedule.
== END 2025-07-13 14:28 | disposition home or self-care (01) ==
LOC: HO.HMCHD 13:42
PROVIDERS: PCP Internal Medicine; Visit Provider Physician Assistant Medical
DX: Z00.00 Encounter for general adult medical examination without abnormal findings (principal); I10 Essential (primary) hypertension; E78.5 Hyperlipidemia, unspecified